=== PATIENT | female | born 1995 | race Caucasian/White ===

== ENCOUNTER 2024-03-11 18:18 | Emergency (ER) | payer OTHER, SELFPAY ==
[2024-03-11] MEDS ORDERED: ISOVUE-370 76% 100ML VIAL As Ordered ONE (18:45)
[2024-03-11 18:53] LABS: BASO % 0.3 % (0.0-1.0); EOS # 0.3 10^3/uL (0.0-0.5); EOS % 3.1 % (0.0-3.0); HEMATOCRIT 30.2 % (36.0-47.0); HEMOGLOBIN 8.7 g/dl (12.0-15.5); LYMPH # 1.3 10^3/uL (1.5-5.0); LYMPH % 14.1 % (24.0-44.0); MEAN CORPUSCULAR HEMOGLOBIN 22.7 pg (27.0-33.0); MEAN CORPUSCULAR HGB CONC 28.8 g/dl (32.0-36.5); MEAN CORPUSCULAR VOLUME 78.9 fl (80.0-96.0); MONO # 0.7 10^3/uL (0.0-0.8); MONO % 6.9 % (2.0-8.0); NEUTROPHILS # 7.2 10^3/uL (1.5-8.5); NEUTROPHILS % 75.3 % (36.0-66.0); PLATELET COUNT, AUTOMATED 320 10^3/uL (150-450); RED BLOOD COUNT 3.83 10^6/uL (4.00-5.40); WHITE BLOOD COUNT 9.5 10^3/uL (4.0-10.0)
[2024-03-11 19:06] LABS: INR 1.05; PARTIAL THROMBOPLASTIN TIME 31.1 SECONDS (24.8-34.2)
[2024-03-11 19:14] LABS: LIPASE 25 U/L (12-53)
[2024-03-11 19:15] LABS: ETHYL ALCOHOL (ETHANOL) < 0.003 % (0.000-0.010)
[2024-03-11 19:16] LABS: ALBUMIN 3.2 G/DL (3.2-5.2); ALKALINE PHOSPHATASE 79 U/L (35-104); ALT/SGPT 19 U/L (7.0-40); AST/SGOT 12 U/L (<34); BILIRUBIN,DIRECT 0.1 MG/DL (<0.4); BILIRUBIN,TOTAL 0.3 MG/DL (0.3-1.2); BLOOD UREA NITROGEN 10 MG/DL (9-23); CALCIUM LEVEL 8.8 MG/DL (8.5-10.1); CARBON DIOXIDE LEVEL 30 MMOL/L (20-31); CHLORIDE LEVEL 105 MMOL/L (98-107); GLOMERULAR FILTRATION RATE > 60.0 (>60); GLUCOSE, FASTING 101 MG/DL (60-100); POTASSIUM SERUM 4.2 MMOL/L (3.5-5.1); SODIUM LEVEL 142 MMOL/L (136-145); TOTAL PROTEIN 6.9 G/DL (5.7-8.2)
[2024-03-11 19:21] LABS: SALICYLATE LEVEL < 3.0 MG/DL (<30)
[2024-03-11 19:31] LABS: VENOUS BASE EXCESS 3.9 (-2.0-2.0); VENOUS HCO3 30.1 MMOL/L (23.0-27.0); VENOUS PARTIAL PRESSURE CO2 54.5 mmHg (38.0-50.0); VENOUS PARTIAL PRESSURE O2 33.8 mmHg (30.0-50.0); VENOUS STANDARD HCO3 27.3 MMOL/L; VENOUS TOTAL CO2 31.8 MMOL/L (24.0-28.0)
[2024-03-11 19:51] LABS: AMYLASE 51 U/L (30-118)
[2024-03-11 21:15] LABS: HCG, SERUM QUALITATIVE NEGATIVE (NEGATIVE)
[2024-03-11 21:55] LABS: AMPHETAMINES LEVEL URINE NEGATIVE (NEGATIVE); BARBITURATES URINE NEGATIVE (NEGATIVE); METHADONE URINE NEGATIVE (NEGATIVE); OPIATES URINE NEGATIVE (NEGATIVE); PHENCYCLIDINE URINE NEGATIVE (NEGATIVE)
[2024-03-11 21:56] LABS: BENZODIAZEPINES URINE NEGATIVE (NEGATIVE); COCAINE METABOLITE URINE NEGATIVE (NEGATIVE)
[2024-03-11 21:58] LABS: CANNABINOIDS URINE POSITIVE (NEGATIVE)
[2024-03-11 23:12] LABS: HEMATOCRIT 27.8 % (36.0-47.0); HEMOGLOBIN 8.1 g/dl (12.0-15.5)
[2024-03-11] MEDS ORDERED: ACETAMINOPHEN *IV* 1,000 MG in IV 1 EA IV ONE (23:55)
[2024-03-12] MEDS ORDERED: EMTRICITABINE/TENOFOVIR 200MG/300MG TABLET PO SCH
[2024-03-12] MEDS ORDERED: RALTEGRAVIR 400 MG TAB (ISENTRESS) PO SCH
[2024-03-12] MEDS: traMADol 50 MG TAB PO ONE (01:18)
[2024-03-12] MEDS ORDERED: metroNIDAZOLE (FLAGYL) 500MG TABLET PO ONE (02:50)
[2024-03-12] MEDS ORDERED: EXPOSURE KIT-ADULT 7 DAY SUPPLY PO ONE (02:50)
[2024-03-12] MEDS ORDERED: GENTAMICIN 120 MG in D5W 50 ML IM ONE (02:50)
[2024-03-12] MEDS ORDERED: RALT40TA PO (02:53)
[2024-03-12] MEDS ORDERED: EMTR1TAB16 PO (02:53)
[2024-03-12] MEDS ORDERED: METR-265 PO (02:53)
[2024-03-12] MEDS: AZITHROMYCIN 250MG TABLET PO ONE (03:11)
[2024-03-12] MEDS: EMTRICITABINE/TENOFOVIR 200MG/300MG TABLET PO ONE (04:05)
[2024-03-12] MEDS: RALTEGRAVIR 400 MG TAB (ISENTRESS) PO ONE (04:05)
[2024-03-12] MEDS: GENTAMICIN SULF 80MG/2ML VIAL IM STA (04:07)
[2024-03-12] MEDS: ONDANSETRON 4MG TAB PO ONE (05:29)
[2024-03-12] MEDS: FAMOTIDINE 20 MG TAB PO ONE (05:29)
[2024-03-12] MEDS: oxyCODONE 5MG TAB PO ONE (05:29)
[2024-03-12 08:14] VITALS: BP 136/68; TEMP 97; O2SAT 96
== END 2024-03-12 08:16 | disposition home or self-care (01) ==
LOC: M ED 18:18 → EDBD 18:18 → M ED 03-12 08:16
DX: I67.1 Cerebral aneurysm, nonruptured (principal); T74.21XA Adult sexual abuse, confirmed, initial encounter; N93.9 Abnormal uterine and vaginal bleeding, unspecified; E04.8 Other specified nontoxic goiter; R16.0 Hepatomegaly, not elsewhere classified; D64.9 Anemia, unspecified; F17.290 Nicotine dependence, other tobacco product, uncomplicated; D69.3 Immune thrombocytopenic purpura; C95.90 Leukemia, unspecified not having achieved remission; Z88.0 Allergy status to penicillin; Z88.6 Allergy status to analgesic agent; Z88.2 Allergy status to sulfonamides; Z91.040 Latex allergy status
CPT/HCPCS: 70450; 70498; 71045; 72125; 74177; 76830; 76856; 80047; 80048; 80076; 80143; 80307; 82077; 82150; 82803; 83605; 83690; 84703; 85014; 85018; 85025; 85610; 85730; 86850; 86900; 86901; 93005; 93041; 93976; 94760; 96372; 99285; J1580; Q9967

== ENCOUNTER 2024-03-12 19:53 | Emergency (ER) | payer OTHER, SELFPAY ==
[~2024-03-12] VITALS: Ht 175.3 cm; Wt 135.4 kg
[~2024-03-12 19:53] MED LIST: EMTR1TAB16 PO; METR-265 PO; RALT40TA PO
[2024-03-12 21:02] LABS: BASO % 0.2 % (0.0-1.0); EOS # 0.3 10^3/uL (0.0-0.5); EOS % 3.5 % (0.0-3.0); HEMATOCRIT 27.9 % (36.0-47.0); LYMPH % 11.1 % (24.0-44.0); MEAN CORPUSCULAR HEMOGLOBIN 22.9 pg (27.0-33.0); MEAN CORPUSCULAR HGB CONC 28.7 g/dl (32.0-36.5); MEAN CORPUSCULAR VOLUME 79.9 fl (80.0-96.0); MONO # 0.5 10^3/uL (0.0-0.8); MONO % 5.5 % (2.0-8.0); NEUTROPHILS # 7.1 10^3/uL (1.5-8.5); NEUTROPHILS % 79.4 % (36.0-66.0); PLATELET COUNT, AUTOMATED 298 10^3/uL (150-450); RED BLOOD COUNT 3.49 10^6/uL (4.00-5.40); WHITE BLOOD COUNT 8.9 10^3/uL (4.0-10.0)
[2024-03-12 21:25] LABS: BLOOD UREA NITROGEN 9 MG/DL (9-23); CALCIUM LEVEL 8.5 MG/DL (8.5-10.1); CARBON DIOXIDE LEVEL 31 MMOL/L (20-31); CHLORIDE LEVEL 106 MMOL/L (98-107); CREATININE FOR GFR 0.68 MG/DL (0.55-1.30); GLOMERULAR FILTRATION RATE > 60.0 (>60); GLUCOSE, FASTING 114 MG/DL (60-100); POTASSIUM SERUM 3.9 MMOL/L (3.5-5.1); SODIUM LEVEL 144 MMOL/L (136-145)
[2024-03-12] MEDS: METOCLOPRAMIDE INJ 10MG/2ML VIAL IV ONE (21:28)
[2024-03-12] MEDS: NS (Normal Saline) 0.9% 1,000 ML IV ONE (21:29)
[2024-03-12] MEDS ORDERED: ISOVUE-370 76% 100ML VIAL As Ordered ONE (21:59)
[2024-03-12 22:02] LABS: C REACTIVE PROTEIN QUANTITATIV 4.26 MG/DL (<1.0)
[2024-03-12 22:02] LABS: ABG BASE EXCESS 3.1 (-2.0-2.0); ABG HCO3 28.8 MMOL/L (22.0-26.0); ABG O2 SATURATION 99.3 % (95.0-99.0); ABG PARTIAL PRESSURE CO2 50.8 mmHg (35.0-45.0); ABG PARTIAL PRESSURE O2 173.3 mmHg (75.0-100.0); ABG STANDARD HCO3 27.2 MMOL/L. (22.0-26.0); ABG TOTAL CO2 30.4 MMOL/L (22.0-29.0); ABG pH (ARTERIAL) 7.372 UNITS (7.350-7.450)
[2024-03-12 22:14] LABS: PROCALCITONIN 0.16 ng/ml
[2024-03-12 23:36] LABS: AMPHETAMINES LEVEL URINE NEGATIVE (NEGATIVE); BARBITURATES URINE NEGATIVE (NEGATIVE); BENZODIAZEPINES URINE NEGATIVE (NEGATIVE); COCAINE METABOLITE URINE NEGATIVE (NEGATIVE)
[2024-03-12 23:37] LABS: CANNABINOIDS URINE POSITIVE (NEGATIVE); METHADONE URINE NEGATIVE (NEGATIVE); OPIATES URINE NEGATIVE (NEGATIVE); PHENCYCLIDINE URINE NEGATIVE (NEGATIVE)
[2024-03-12 23:43] LABS: FREE T4 0.42 NG/DL (0.89-1.76)
[2024-03-13 00:11] LABS: THYROID STIMULATING HORMONE > 150.000 uIU/ML (0.55-4.78)
[2024-03-13 00:42] VITALS: BP 113/61; TEMP 97.3; O2SAT 100
== END 2024-03-13 00:42 | disposition home or self-care (01) ==
LOC: M ED 19:53
DX: R55 Syncope and collapse (principal); R94.6 Abnormal results of thyroid function studies; Z53.9 Procedure and treatment not carried out, unspecified reason; E11.9 Type 2 diabetes mellitus without complications; G47.33 Obstructive sleep apnea (adult) (pediatric); Z88.0 Allergy status to penicillin; Z88.2 Allergy status to sulfonamides; Z88.6 Allergy status to analgesic agent; Z91.040 Latex allergy status
CPT/HCPCS: 36600; 70450; 71045; 71275; 80048; 80307; 81000; 81015; 82803; 83605; 83735; 84145; 84439; 84443; 85025; 85379; 85652; 86140; 87040; 87088; 87186; 87486; 87581; 87633; 87798; 93005; 93041; 94760; 96361; 96374; 96375; 99285; J1100; J2765; Q9967

== ENCOUNTER 2024-03-27 23:45 | Inpatient (IN) | payer SELFPAY ==
[~2024-03-27] VITALS: Ht 175.3 cm; Wt 117.7 kg
[2024-03-28 00:11] VITALS: TEMP 98.2
[2024-03-28 00:15] VITALS: O2SAT 93
[2024-03-28 00:17] LABS: VENOUS HCO3 29.4 MMOL/L (23.0-27.0); VENOUS O2 SATURATION 70.6 % (60.0-80.0); VENOUS PARTIAL PRESSURE CO2 55.7 mmHg (38.0-50.0); VENOUS PARTIAL PRESSURE O2 40.3 mmHg (30.0-50.0); VENOUS PH 7.341 UNITS (7.330-7.430); VENOUS STANDARD HCO3 26.7 MMOL/L; VENOUS TOTAL CO2 31.2 MMOL/L (24.0-28.0)
[2024-03-28 00:19] LABS: IONIZED CALCIUM 4.6 MG/DL (4.5-5.3)
[2024-03-28 00:21] LABS: BASO % 0.2 % (0.0-1.0); EOS # 0.3 10^3/uL (0.0-0.5); HEMATOCRIT 28.4 % (36.0-47.0); HEMOGLOBIN 8.1 g/dl (12.0-15.5); LYMPH # 1.4 10^3/uL (1.5-5.0); LYMPH % 15.6 % (24.0-44.0); MEAN CORPUSCULAR HEMOGLOBIN 22.2 pg (27.0-33.0); MEAN CORPUSCULAR HGB CONC 28.5 g/dl (32.0-36.5); MEAN CORPUSCULAR VOLUME 77.8 fl (80.0-96.0); MONO # 0.6 10^3/uL (0.0-0.8); MONO % 6.7 % (2.0-8.0); NEUTROPHILS # 6.8 10^3/uL (1.5-8.5); NEUTROPHILS % 74.1 % (36.0-66.0); PLATELET COUNT, AUTOMATED 307 10^3/uL (150-450); RED BLOOD COUNT 3.65 10^6/uL (4.00-5.40); WHITE BLOOD COUNT 9.1 10^3/uL (4.0-10.0)
[2024-03-28 00:52] LABS: ALBUMIN 3.1 G/DL (3.2-5.2); ALKALINE PHOSPHATASE 76 U/L (35-104); ALT/SGPT 19 U/L (7.0-40); AST/SGOT 13 U/L (<34); BILIRUBIN,DIRECT 0.1 MG/DL (<0.4); BILIRUBIN,TOTAL 0.3 MG/DL (0.3-1.2); BLOOD UREA NITROGEN 13 MG/DL (9-23); CALCIUM LEVEL 9.1 MG/DL (8.5-10.1); CARBON DIOXIDE LEVEL 31 MMOL/L (20-31); CHLORIDE LEVEL 105 MMOL/L (98-107); CREATININE FOR GFR 0.79 MG/DL (0.55-1.30); GLOMERULAR FILTRATION RATE > 60.0 (>60); GLUCOSE, FASTING 110 MG/DL (60-100); MAGNESIUM LEVEL 1.8 MG/DL (1.8-2.4); POTASSIUM SERUM 4.2 MMOL/L (3.5-5.1); SODIUM LEVEL 142 MMOL/L (136-145)
[2024-03-28 01:00] LABS: FREE T4 0.52 NG/DL (0.89-1.76)
[2024-03-28 01:07] LABS: ETHYL ALCOHOL (ETHANOL) < 0.003 % (0.000-0.010)
[2024-03-28 01:09] LABS: THYROID STIMULATING HORMONE > 150.000 uIU/ML (0.55-4.78)
[2024-03-28] MEDS: NS (Normal Saline) 0.9% 1,000 ML IV ONE (01:29)
[2024-03-28] MEDS: METOCLOPRAMIDE INJ 10MG/2ML VIAL IV ONE (01:30)
[2024-03-28] MEDS: KETOROLAC 30 MG/ML 1ML VIAL IV ONE (01:31)
[2024-03-28] MEDS: HYDROCORTISONE 100MG/2ML VIAL IV ONE (03:11)
[2024-03-28] MEDS: LIOTHYRONINE 25 MCG TAB PO ONE (03:22)
[2024-03-28] MEDS: LEVOTHYROXINE 100MCG (0.1MG) 5ML SDV PF (SOLUTION FORM) IV ONE (03:22)
[2024-03-28 03:49] LABS: AMPHETAMINES LEVEL URINE NEGATIVE (NEGATIVE); BARBITURATES URINE NEGATIVE (NEGATIVE); BENZODIAZEPINES URINE NEGATIVE (NEGATIVE); COCAINE METABOLITE URINE NEGATIVE (NEGATIVE); METHADONE URINE NEGATIVE (NEGATIVE); OPIATES URINE NEGATIVE (NEGATIVE); PHENCYCLIDINE URINE NEGATIVE (NEGATIVE)
[2024-03-28 03:53] LABS: CANNABINOIDS URINE POSITIVE (NEGATIVE)
[2024-03-28] MEDS ORDERED: LORazepam 2 MG/ML 1ML VIAL IV PRN (06:25)
[2024-03-28 06:45] VITALS: BP 103/54
[2024-03-28] MEDS: levETIRAcetam INJection 1,500 MG in D5W 100 ML IV ONE (07:40)
[2024-03-28] MEDS ORDERED: IPRATROPIUM 0.5MG/ALBUTEROL 2.5MG INH SOL UD 3ML (DUONEB) NEB SCH (08:00)
[2024-03-28] MEDS ORDERED: DOCUSATE SODIUM 100MG CAPSULE PO SCH (09:00)
[2024-03-28] MEDS ORDERED: HYDROCORTISONE 100MG/2ML VIAL IV SCH (11:00)
[2024-03-28] MEDS ORDERED: HEPARIN SOD (PORCINE) 5000UNITS/ML 1ML VIAL/SYRINGE SC SCH (14:00)
[2024-03-28] MEDS ORDERED: levETIRAcetam 250MG TABLET (KEPPRA) PO SCH (21:00)
[2024-03-29] MEDS ORDERED: LEVOTHYROXINE 100MCG (0.1MG) 5ML SDV PF (SOLUTION FORM) IV SCH (06:00)
[2024-03-29] MEDS ORDERED: LIOTHYRONINE 25 MCG TAB PO SCH (09:00)
== END 2024-03-28 07:40 | disposition left against medical advice (07) | DRG 424 ==
LOC: EDBD 23:45 → M ED 23:45 → M ED INP 03-28 03:43
PROVIDERS: ADMIT Student in an Organized Health Care Education/Training Program; ATTEND Student in an Organized Health Care Education/Training Program
DX: E03.9 Hypothyroidism, unspecified (principal); G93.40 Encephalopathy, unspecified; R56.9 Unspecified convulsions; E66.2 Morbid (severe) obesity with alveolar hypoventilation; D50.9 Iron deficiency anemia, unspecified; Z79.899 Other long term (current) drug therapy; Z88.0 Allergy status to penicillin; Z88.2 Allergy status to sulfonamides; Z88.6 Allergy status to analgesic agent; Z88.8 Allergy status to other drugs, medicaments and biological substances; Z91.040 Latex allergy status

== ENCOUNTER 2024-03-29 23:42 | Inpatient (IN) | payer SELFPAY ==
[~2024-03-29] VITALS: Ht 175.3 cm; Wt 136.0 kg
[2024-03-29 23:54] VITALS: TEMP 98.1
[2024-03-30 00:19] LABS: VENOUS BASE EXCESS 0.6 (-2.0-2.0); VENOUS HCO3 27.3 MMOL/L (23.0-27.0); VENOUS O2 SATURATION 64.5 % (60.0-80.0); VENOUS PARTIAL PRESSURE CO2 55.7 mmHg (38.0-50.0); VENOUS PARTIAL PRESSURE O2 37.6 mmHg (30.0-50.0); VENOUS PH 7.308 UNITS (7.330-7.430); VENOUS STANDARD HCO3 24.5 MMOL/L
[2024-03-30 00:21] LABS: IONIZED CALCIUM 4.6 MG/DL (4.5-5.3)
[2024-03-30 00:23] LABS: BASO % 0.3 % (0.0-1.0); EOS # 0.3 10^3/uL (0.0-0.5); EOS % 3.2 % (0.0-3.0); HEMATOCRIT 26.9 % (36.0-47.0); HEMOGLOBIN 7.5 g/dl (12.0-15.5); LYMPH % 20.4 % (24.0-44.0); MEAN CORPUSCULAR HEMOGLOBIN 22.2 pg (27.0-33.0); MEAN CORPUSCULAR HGB CONC 27.9 g/dl (32.0-36.5); MEAN CORPUSCULAR VOLUME 79.6 fl (80.0-96.0); MONO # 0.6 10^3/uL (0.0-0.8); MONO % 6.3 % (2.0-8.0); NEUTROPHILS # 6.6 10^3/uL (1.5-8.5); NEUTROPHILS % 69.5 % (36.0-66.0); PLATELET COUNT, AUTOMATED 287 10^3/uL (150-450); RED BLOOD COUNT 3.38 10^6/uL (4.00-5.40); WHITE BLOOD COUNT 9.6 10^3/uL (4.0-10.0)
[2024-03-30] MEDS: levETIRAcetam INJection 2,000 MG in D5W 100 ML IV ONE (00:34)
[2024-03-30 00:47] LABS: ETHYL ALCOHOL (ETHANOL) 0.009 % (0.000-0.010)
[2024-03-30 00:51] LABS: FREE T4 0.53 NG/DL (0.89-1.76); THYROID STIMULATING HORMONE 124.105 uIU/ML (0.55-4.78)
[2024-03-30 00:54] LABS: ALKALINE PHOSPHATASE 76 U/L (35-104); ALT/SGPT 25 U/L (7.0-40); AST/SGOT 12 U/L (<34); BILIRUBIN,DIRECT < 0.1 MG/DL (<0.4); BILIRUBIN,TOTAL 0.2 MG/DL (0.3-1.2); BLOOD UREA NITROGEN 12 MG/DL (9-23); CALCIUM LEVEL 8.6 MG/DL (8.5-10.1); CARBON DIOXIDE LEVEL 29 MMOL/L (20-31); CHLORIDE LEVEL 110 MMOL/L (98-107); CREATININE FOR GFR 0.78 MG/DL (0.55-1.30); GLOMERULAR FILTRATION RATE > 60.0 (>60); GLUCOSE, FASTING 100 MG/DL (60-100); MAGNESIUM LEVEL 1.6 MG/DL (1.8-2.4); PHOSPHORUS LEVEL 3.5 MG/DL (2.5-4.9); POTASSIUM SERUM 3.9 MMOL/L (3.5-5.1); SODIUM LEVEL 142 MMOL/L (136-145); TOTAL PROTEIN 6.3 G/DL (5.7-8.2)
[2024-03-30 01:19] LABS: AMPHETAMINES LEVEL URINE NEGATIVE (NEGATIVE); BARBITURATES URINE NEGATIVE (NEGATIVE); BENZODIAZEPINES URINE NEGATIVE (NEGATIVE); COCAINE METABOLITE URINE NEGATIVE (NEGATIVE); METHADONE URINE NEGATIVE (NEGATIVE); OPIATES URINE NEGATIVE (NEGATIVE); PHENCYCLIDINE URINE NEGATIVE (NEGATIVE)
[2024-03-30 01:20] LABS: CANNABINOIDS URINE POSITIVE (NEGATIVE)
[2024-03-30] MEDS ORDERED: ACETAMINOPHEN 325 MG TAB PO PRN (02:55)
[2024-03-30] MEDS ORDERED: MOM 30ML SUSPENSION UDC PO PRN (02:55)
[2024-03-30] MEDS ORDERED: MAALOX 30 ML SUSP *UDC PO PRN (02:55)
[2024-03-30] MEDS ORDERED: MED REC IN PROGRESS XX SCH (03:55)
[2024-03-30 05:34] VITALS: BP 117/63; O2SAT 92
[2024-03-30] MEDS: LEVOTHYROXINE 100MCG (0.1MG) 5ML SDV PF (SOLUTION FORM) IV SCH (06:11)
[2024-03-30 09:00] LABS: HEMATOCRIT 30.8 % (36.0-47.0); HEMOGLOBIN 8.4 g/dl (12.0-15.5); MEAN CORPUSCULAR HEMOGLOBIN 21.6 pg (27.0-33.0); MEAN CORPUSCULAR HGB CONC 27.3 g/dl (32.0-36.5); MEAN CORPUSCULAR VOLUME 79.2 fl (80.0-96.0); PLATELET COUNT, AUTOMATED 298 10^3/uL (150-450); RED BLOOD COUNT 3.89 10^6/uL (4.00-5.40); WHITE BLOOD COUNT 10.9 10^3/uL (4.0-10.0)
[2024-03-30] MEDS ORDERED: HYDROCORTISONE 100MG/2ML VIAL IV SCH (09:00)
[2024-03-30] MEDS ORDERED: LIOTHYRONINE 25 MCG TAB PO SCH (09:00)
[2024-03-30] MEDS ORDERED: PANTOPRAZOLE 40MG VIAL IV SCH (09:00)
[2024-03-30] MEDS ORDERED: levETIRAcetam 250MG TABLET (KEPPRA) PO SCH (09:00)
[2024-03-30] MEDS ORDERED: DOCUSATE SODIUM 100MG CAPSULE PO SCH (09:00)
[2024-03-30 09:25] LABS: ALBUMIN 3.1 G/DL (3.2-5.2); ALKALINE PHOSPHATASE 83 U/L (35-104); ALT/SGPT 24 U/L (7.0-40); AST/SGOT 12 U/L (<34); BILIRUBIN,TOTAL 0.3 MG/DL (0.3-1.2); BLOOD UREA NITROGEN 10 MG/DL (9-23); CALCIUM LEVEL 8.6 MG/DL (8.5-10.1); CARBON DIOXIDE LEVEL 30 MMOL/L (20-31); CHLORIDE LEVEL 105 MMOL/L (98-107); CREATININE FOR GFR 0.67 MG/DL (0.55-1.30); GLOMERULAR FILTRATION RATE > 60.0 (>60); GLUCOSE, FASTING 98 MG/DL (60-100); MAGNESIUM LEVEL 1.8 MG/DL (1.8-2.4); POTASSIUM SERUM 4.3 MMOL/L (3.5-5.1); SODIUM LEVEL 141 MMOL/L (136-145)
[2024-03-30] MEDS ORDERED: CYTO25TA6 PO (10:16)
[2024-03-30] MEDS ORDERED: KEPP1TAB PO (10:16)
[2024-03-30] MEDS ORDERED: SYNT100T PO (10:16)
[2024-03-30] MEDS ORDERED: HEPARIN SOD (PORCINE) 5000UNITS/ML 1ML VIAL/SYRINGE SC SCH (14:00)
== END 2024-03-30 09:45 | disposition home or self-care (01) | DRG 53 ==
LOC: EDBD 23:42 → M ED 23:42 → M ED INP 03-30 02:51
PROVIDERS: ADMIT Student in an Organized Health Care Education/Training Program; ATTEND Student in an Organized Health Care Education/Training Program
DX: R56.9 Unspecified convulsions (principal); E66.2 Morbid (severe) obesity with alveolar hypoventilation; I72.0 Aneurysm of carotid artery; Z68.41 Body mass index [BMI] 40.0-44.9, adult; E03.9 Hypothyroidism, unspecified; D50.9 Iron deficiency anemia, unspecified; Z79.899 Other long term (current) drug therapy; Z88.0 Allergy status to penicillin; Z88.2 Allergy status to sulfonamides; Z88.6 Allergy status to analgesic agent; Z88.8 Allergy status to other drugs, medicaments and biological substances; Z91.040 Latex allergy status

== ENCOUNTER 2024-03-31 19:52 | Observation (INO) | payer MEDICAID, SELFPAY ==
[~2024-03-31] VITALS: Ht 175.3 cm; Wt 186.3 kg
[~2024-03-31 19:52] MED LIST changes: +CYTO25TA6 PO; +KEPP1TAB PO; +SYNT100T PO
[2024-03-31] MEDS: levETIRAcetam INJection 1,000 MG in D5W 100 ML IV ONE (20:52)
[2024-03-31 21:26] LABS: HEMATOCRIT 28.4 % (36.0-47.0); HEMOGLOBIN 8.1 g/dl (12.0-15.5); MEAN CORPUSCULAR HGB CONC 28.5 g/dl (32.0-36.5); MEAN CORPUSCULAR VOLUME 77.2 fl (80.0-96.0); PLATELET COUNT, AUTOMATED 295 10^3/uL (150-450); RED BLOOD COUNT 3.68 10^6/uL (4.00-5.40); WHITE BLOOD COUNT 9.5 10^3/uL (4.0-10.0)
[2024-03-31 21:49] LABS: ETHYL ALCOHOL (ETHANOL) < 0.003 % (0.000-0.010)
[2024-03-31 21:51] LABS: ALKALINE PHOSPHATASE 81 U/L (35-104); ALT/SGPT 18 U/L (7.0-40); AST/SGOT 15 U/L (<34); BILIRUBIN,TOTAL 0.2 MG/DL (0.3-1.2); BLOOD UREA NITROGEN 15 MG/DL (9-23); CARBON DIOXIDE LEVEL 30 MMOL/L (20-31); CHLORIDE LEVEL 105 MMOL/L (98-107); CREATININE FOR GFR 0.68 MG/DL (0.55-1.30); GLOMERULAR FILTRATION RATE > 60.0 (>60); GLUCOSE, FASTING 107 MG/DL (60-100); MAGNESIUM LEVEL 1.8 MG/DL (1.8-2.4); POTASSIUM SERUM 4.3 MMOL/L (3.5-5.1); SODIUM LEVEL 141 MMOL/L (136-145); TOTAL PROTEIN 6.9 G/DL (5.7-8.2)
[2024-03-31 21:53] LABS: FREE T4 0.58 NG/DL (0.89-1.76)
[2024-03-31 21:54] LABS: THYROID STIMULATING HORMONE 128.011 uIU/ML (0.55-4.78)
[2024-04-01 01:56] LABS: HCG, SERUM QUANTITATIVE < 2.6 MIU/ML (<4.2)
[2024-04-01] MEDS: LEVOTHYROXINE 100MCG TABLET (0.1MG) PO SCH (06:11)
[2024-04-01 08:56] LABS: VENOUS O2 SATURATION 59.7 % (60.0-80.0); VENOUS PARTIAL PRESSURE CO2 59.8 mmHg (38.0-50.0); VENOUS PARTIAL PRESSURE O2 34.7 mmHg (30.0-50.0); VENOUS PH 7.319 UNITS (7.330-7.430); VENOUS STANDARD HCO3 26.5 MMOL/L; VENOUS TOTAL CO2 31.9 MMOL/L (24.0-28.0)
[2024-04-01] MEDS: levETIRAcetam 250MG TABLET (KEPPRA) PO SCH (09:05)
[2024-04-01] MEDS: LIOTHYRONINE 25 MCG TAB PO SCH (09:05)
[2024-04-01 11:03] LABS: MEAN CORPUSCULAR HEMOGLOBIN 21.6 pg (27.0-33.0); MEAN CORPUSCULAR HGB CONC 27.6 g/dl (32.0-36.5); MEAN CORPUSCULAR VOLUME 78.4 fl (80.0-96.0); PLATELET COUNT, AUTOMATED 290 10^3/uL (150-450); WHITE BLOOD COUNT 9.2 10^3/uL (4.0-10.0)
[2024-04-01 11:27] LABS: BLOOD UREA NITROGEN 14 MG/DL (9-23); CALCIUM LEVEL 9.1 MG/DL (8.5-10.1); CARBON DIOXIDE LEVEL 32 MMOL/L (20-31); CHLORIDE LEVEL 104 MMOL/L (98-107); CREATININE FOR GFR 0.68 MG/DL (0.55-1.30); GLOMERULAR FILTRATION RATE > 60.0 (>60); GLUCOSE, FASTING 107 MG/DL (60-100); IRON (FE) 12 UG/DL (50-170); PERCENT SATURATION 4.1 % (13.2-45.0); POTASSIUM SERUM 4.3 MMOL/L (3.5-5.1); SODIUM LEVEL 139 MMOL/L (136-145); TOTAL IRON BINDING CAPACITY 292 UG/DL (250-425)
[2024-04-01 11:29] LABS: FREE T4 0.65 NG/DL (0.89-1.76)
[2024-04-01 11:30] LABS: FREE T3 2.6 PG/ML (2.3-4.2); PROLACTIN 45.03 NG/ML
[2024-04-01] MEDS ORDERED: ACETAMINOPHEN 325 MG TAB PO PRN (12:10)
[2024-04-01] MEDS ORDERED: LORazepam 2 MG/ML 1ML VIAL IV PRN (12:10)
[2024-04-01] MEDS ORDERED: ONDANSETRON 4MG 2ML VIAL IV PRN (12:10)
[2024-04-01 12:58] LABS: CHOLESTEROL LEVEL 157 MG/DL (<200); CHOLESTEROL RISK RATIO 4.18 (<5); HDL CHOLESTEROL 37.5 MG/DL (>40); LDL CHOLESTEROL 105.3 MG/DL (<100); NON-HDL-C 119.5 MG/DL; TRIGLYCERIDES LEVEL 71 MG/DL (<150)
[2024-04-01] MEDS ORDERED: KEPP10002 PO (13:02)
[2024-04-01] MEDS ORDERED: SYNT100T PO (13:02)
[2024-04-01] MEDS ORDERED: HOME MED LIST COMPLETE! XX SCH (13:05)
[2024-04-01 13:11] LABS: HEMOGLOBIN A1c 5.6 % (4.0-6.0)
[2024-04-01] MEDS ORDERED: KETOROLAC 30 MG/ML 1ML VIAL IV ONE (13:25)
[2024-04-01] MEDS: KETOROLAC 30 MG/ML 1ML VIAL IV ONE (13:30)
[2024-04-01] MEDS: HEPARIN SOD (PORCINE) 5000UNITS/ML 1ML VIAL/SYRINGE SQ SCH (14:58)
[2024-04-01] MEDS ORDERED: IBUPROFEN 400MG TAB PO PRN (19:30)
[2024-04-02 05:19] VITALS: BP 111/59; TEMP 97.6; O2SAT 98
[2024-04-02] MEDS ORDERED: ENTER DRUG NAME HERE (PATIENT'S OWN MED) PO SCH ×2 (09:00)
[2024-04-02 10:09] LABS: BASO % 0.2 % (0.0-1.0); EOS # 0.3 10^3/uL (0.0-0.5); HEMOGLOBIN 8.6 g/dl (12.0-15.5); LYMPH # 1.1 10^3/uL (1.5-5.0); LYMPH % 12.4 % (24.0-44.0); MEAN CORPUSCULAR HEMOGLOBIN 21.8 pg (27.0-33.0); MEAN CORPUSCULAR HGB CONC 27.7 g/dl (32.0-36.5); MEAN CORPUSCULAR VOLUME 78.5 fl (80.0-96.0); MONO # 0.6 10^3/uL (0.0-0.8); MONO % 6.4 % (2.0-8.0); NEUTROPHILS # 6.8 10^3/uL (1.5-8.5); NEUTROPHILS % 77.8 % (36.0-66.0); PLATELET COUNT, AUTOMATED 305 10^3/uL (150-450); RED BLOOD COUNT 3.95 10^6/uL (4.00-5.40); WHITE BLOOD COUNT 8.8 10^3/uL (4.0-10.0)
[2024-04-02 10:35] LABS: ALBUMIN 3.2 G/DL (3.2-5.2); ALKALINE PHOSPHATASE 80 U/L (35-104); ALT/SGPT 17 U/L (7.0-40); AST/SGOT 9 U/L (<34); BILIRUBIN,TOTAL 0.3 MG/DL (0.3-1.2); BLOOD UREA NITROGEN 15 MG/DL (9-23); CALCIUM LEVEL 8.4 MG/DL (8.5-10.1); CARBON DIOXIDE LEVEL 30 MMOL/L (20-31); CHLORIDE LEVEL 104 MMOL/L (98-107); CREATININE FOR GFR 0.74 MG/DL (0.55-1.30); GLOMERULAR FILTRATION RATE > 60.0 (>60); GLUCOSE, FASTING 111 MG/DL (60-100); IRON (FE) 15 UG/DL (50-170); PERCENT SATURATION 4.9 % (13.2-45.0); POTASSIUM SERUM 4.4 MMOL/L (3.5-5.1); SODIUM LEVEL 142 MMOL/L (136-145); TOTAL IRON BINDING CAPACITY 307 UG/DL (250-425); TOTAL PROTEIN 6.8 G/DL (5.7-8.2)
[2024-04-02 10:39] LABS: THYROXINE (T4) 3.7 UG/DL (4.5-10.9)
[2024-04-02 10:40] LABS: FERRITIN 9.8 NG/ML (7.3-270.7)
[2024-04-02 10:42] LABS: FREE THYROXINE INDEX 1.1 % (1.3-4.8)
[2024-04-05 01:38] LABS: LEVETIRACETAM (KEPPRA) 13.5 mcg/mL (6.0-46.0)
== END 2024-04-02 14:00 | disposition left against medical advice (07) ==
LOC: EDBD 19:52 → EDUNIT# 19:52 → M ED 20:46 → M ED INP 04-01 09:50
PROVIDERS: ADMIT General Practice; ATTEND General Practice
DX: R56.9 Unspecified convulsions (principal); E06.3 Autoimmune thyroiditis; D50.9 Iron deficiency anemia, unspecified; E66.01 Morbid (severe) obesity due to excess calories; G47.30 Sleep apnea, unspecified; Z68.44 Body mass index [BMI] 60.0-69.9, adult; Z79.890 Hormone replacement therapy; Z79.899 Other long term (current) drug therapy; Z88.0 Allergy status to penicillin; Z88.2 Allergy status to sulfonamides; Z88.6 Allergy status to analgesic agent; Z88.8 Allergy status to other drugs, medicaments and biological substances; Z91.040 Latex allergy status
CPT/HCPCS: 36415; 70450; 80048; 80053; 80061; 80177; 82077; 82728; 82803; 83036; 83550; 83605; 83735; 84146; 84238; 84436; 84439; 84443; 84479; 84481; 84702; 85025; 85027; 85046; 96372; 96374; 96375; 97161; 99285; J1885; J1953

== ENCOUNTER 2024-04-04 10:41 | Emergency (ER) | payer SELFPAY ==
[~2024-04-04] VITALS: Ht 175.3 cm; Wt 181.4 kg
[~2024-04-04 10:41] MED LIST changes: +KEPP10002 PO
[2024-04-04 13:55] VITALS: BP 123/69; TEMP 97.1; O2SAT 96
== END 2024-04-04 14:00 | disposition home or self-care (01) ==
LOC: EDUNIT# 10:41 → EDBD 10:41 → M ED 10:41
DX: R56.9 Unspecified convulsions (principal); G47.33 Obstructive sleep apnea (adult) (pediatric); E03.9 Hypothyroidism, unspecified; F12.10 Cannabis abuse, uncomplicated; Z88.0 Allergy status to penicillin; Z88.2 Allergy status to sulfonamides; Z88.8 Allergy status to other drugs, medicaments and biological substances; Z91.040 Latex allergy status; Z79.899 Other long term (current) drug therapy

== ENCOUNTER 2024-04-28 22:02 | Emergency (ER) | payer MEDICAID, SELFPAY ==
[~2024-04-28] VITALS: Ht 175.3 cm; Wt 72.3 kg
[2024-04-28 22:15] VITALS: BP 127/66; TEMP 98.7; O2SAT 98
[2024-04-28] MEDS: diphenhydrAMINE 50MG/ML VIAL IV ONE (22:20)
[2024-04-28] MEDS: NS (Normal Saline) 0.9% 1,000 ML IV ONE (22:20)
[2024-04-28 22:56] LABS: BASO % 0.5 % (0.0-1.0); EOS # 0.2 10^3/uL (0.0-0.5); EOS % 2.4 % (0.0-3.0); HEMATOCRIT 26.2 % (36.0-47.0); HEMOGLOBIN 7.3 g/dl (12.0-15.5); LYMPH # 1.4 10^3/uL (1.5-5.0); LYMPH % 16.6 % (24.0-44.0); MEAN CORPUSCULAR HGB CONC 27.9 g/dl (32.0-36.5); MEAN CORPUSCULAR VOLUME 75.3 fl (80.0-96.0); MONO # 0.6 10^3/uL (0.0-0.8); MONO % 7.3 % (2.0-8.0); NEUTROPHILS # 6.1 10^3/uL (1.5-8.5); PLATELET COUNT, AUTOMATED 287 10^3/uL (150-450); RED BLOOD COUNT 3.48 10^6/uL (4.00-5.40); WHITE BLOOD COUNT 8.4 10^3/uL (4.0-10.0)
[2024-04-28] MEDS: METOCLOPRAMIDE INJ 10MG/2ML VIAL IV ONE (23:03)
[2024-04-28] MEDS: KETOROLAC 30 MG/ML 1ML VIAL IV ONE (23:04)
[2024-04-28 23:33] LABS: ALBUMIN 3.2 G/DL (3.2-5.2); ALKALINE PHOSPHATASE 68 U/L (35-104); ALT/SGPT 18 U/L (7.0-40); AST/SGOT 10 U/L (<34); BILIRUBIN,DIRECT 0.1 MG/DL (<0.4); BILIRUBIN,TOTAL 0.4 MG/DL (0.3-1.2); BLOOD UREA NITROGEN 12 MG/DL (9-23); CALCIUM LEVEL 8.4 MG/DL (8.5-10.1); CARBON DIOXIDE LEVEL 29 MMOL/L (20-31); CHLORIDE LEVEL 106 MMOL/L (98-107); CREATININE FOR GFR 0.69 MG/DL (0.55-1.30); GLOMERULAR FILTRATION RATE > 60.0 (>60); GLUCOSE, FASTING 102 MG/DL (60-100); SODIUM LEVEL 141 MMOL/L (136-145); TOTAL PROTEIN 6.7 G/DL (5.7-8.2)
[2024-04-29] MEDS ORDERED: PREV1CAP PO (22:47)
[2024-05-13] MEDS ORDERED: LEVO1TAB38 PO (08:42)
== END 2024-04-28 23:53 | disposition home or self-care (01) ==
LOC: EDBD 22:02 → EDSEX 22:02 → M ED 22:02
DX: R51.9 Headache, unspecified (principal); D64.9 Anemia, unspecified; E07.9 Disorder of thyroid, unspecified; F44.5 Conversion disorder with seizures or convulsions; Z79.899 Other long term (current) drug therapy; Z88.0 Allergy status to penicillin; Z88.2 Allergy status to sulfonamides; Z88.6 Allergy status to analgesic agent; Z91.040 Latex allergy status
CPT/HCPCS: 70450; 80048; 80076; 82140; 85025; 93041; 94760; 96374; 96375; 99284; J1885; J2765

== ENCOUNTER 2024-04-29 20:10 | Emergency (ER) | payer MEDICAID, SELFPAY ==
[~2024-04-29] VITALS: Ht 175.3 cm; Wt 181.8 kg
[2024-04-29] MEDS: ONDANSETRON 4MG ORAL DISINTEGRATING TAB PO ONE (20:50)
[2024-04-29 20:52] LABS: HEMATOCRIT 27.7 % (36.0-47.0); HEMOGLOBIN 7.6 g/dl (12.0-15.5); MEAN CORPUSCULAR HEMOGLOBIN 20.8 pg (27.0-33.0); MEAN CORPUSCULAR HGB CONC 27.4 g/dl (32.0-36.5); MEAN CORPUSCULAR VOLUME 75.9 fl (80.0-96.0); PLATELET COUNT, AUTOMATED 307 10^3/uL (150-450); RED BLOOD COUNT 3.65 10^6/uL (4.00-5.40); WHITE BLOOD COUNT 8.1 10^3/uL (4.0-10.0)
[2024-04-29 21:53] LABS: HCG, SERUM QUALITATIVE NEGATIVE (NEGATIVE)
[2024-04-29 21:54] LABS: BLOOD UREA NITROGEN 13 MG/DL (9-23); CALCIUM LEVEL 8.7 MG/DL (8.5-10.1); CARBON DIOXIDE LEVEL 32 MMOL/L (20-31); CHLORIDE LEVEL 107 MMOL/L (98-107); GLOMERULAR FILTRATION RATE > 60.0 (>60); GLUCOSE, FASTING 103 MG/DL (60-100); POTASSIUM SERUM 4.1 MMOL/L (3.5-5.1); SODIUM LEVEL 145 MMOL/L (136-145)
[2024-04-29 22:45] VITALS: BP 110/64; TEMP 98.8; O2SAT 96
[2024-04-29] MEDS ORDERED: PREV1CAP PO (22:47)
[2024-05-13] MEDS ORDERED: LEVO1TAB38 PO (08:42)
== END 2024-04-29 22:50 | disposition home or self-care (01) ==
LOC: EDBD 20:10 → M ED 20:10
DX: Z76.5 Malingerer [conscious simulation] (principal); N92.0 Excessive and frequent menstruation with regular cycle; E11.9 Type 2 diabetes mellitus without complications; R51.9 Headache, unspecified; Z88.0 Allergy status to penicillin; Z88.6 Allergy status to analgesic agent; Z88.2 Allergy status to sulfonamides; Z91.040 Latex allergy status

== ENCOUNTER 2024-05-03 05:06 | Emergency (ER) | payer MEDICAID, SELFPAY ==
[~2024-05-03] VITALS: Ht 175.3 cm; Wt 178.3 kg
[~2024-05-03 05:06] MED LIST changes: +PREV1CAP PO
[2024-05-03 07:26] LABS: VENOUS BASE EXCESS 1.1 (-2.0-2.0); VENOUS HCO3 27.9 MMOL/L (23.0-27.0); VENOUS O2 SATURATION 68.1 % (60.0-80.0); VENOUS PARTIAL PRESSURE CO2 56.9 mmHg (38.0-50.0); VENOUS PARTIAL PRESSURE O2 40.1 mmHg (30.0-50.0); VENOUS PH 7.309 UNITS (7.330-7.430); VENOUS STANDARD HCO3 25.1 MMOL/L; VENOUS TOTAL CO2 29.7 MMOL/L (24.0-28.0)
[2024-05-03 07:27] LABS: IONIZED CALCIUM 4.5 MG/DL (4.5-5.3)
[2024-05-03 07:34] LABS: BASO % 0.4 % (0.0-1.0); EOS # 0.2 10^3/uL (0.0-0.5); EOS % 2.4 % (0.0-3.0); HEMATOCRIT 27.9 % (36.0-47.0); HEMOGLOBIN 7.4 g/dl (12.0-15.5); LYMPH # 1.3 10^3/uL (1.5-5.0); LYMPH % 17.3 % (24.0-44.0); MEAN CORPUSCULAR HEMOGLOBIN 20.1 pg (27.0-33.0); MEAN CORPUSCULAR HGB CONC 26.5 g/dl (32.0-36.5); MEAN CORPUSCULAR VOLUME 75.6 fl (80.0-96.0); MONO # 0.6 10^3/uL (0.0-0.8); MONO % 8.2 % (2.0-8.0); NEUTROPHILS # 5.3 10^3/uL (1.5-8.5); NEUTROPHILS % 71.3 % (36.0-66.0); PLATELET COUNT, AUTOMATED 282 10^3/uL (150-450); RED BLOOD COUNT 3.69 10^6/uL (4.00-5.40); WHITE BLOOD COUNT 7.4 10^3/uL (4.0-10.0)
[2024-05-03 08:03] LABS: ALBUMIN 3.1 G/DL (3.2-5.2); ALKALINE PHOSPHATASE 73 U/L (35-104); ALT/SGPT 14 U/L (7.0-40); AST/SGOT < 8 U/L (<34); BILIRUBIN,DIRECT 0.1 MG/DL (<0.4); BILIRUBIN,TOTAL 0.3 MG/DL (0.3-1.2); BLOOD UREA NITROGEN 10 MG/DL (9-23); CALCIUM LEVEL 8.2 MG/DL (8.5-10.1); CARBON DIOXIDE LEVEL 28 MMOL/L (20-31); CHLORIDE LEVEL 106 MMOL/L (98-107); CREATININE FOR GFR 0.69 MG/DL (0.55-1.30); GLOMERULAR FILTRATION RATE > 60.0 (>60); GLUCOSE, FASTING 98 MG/DL (60-100); PHOSPHORUS LEVEL 4.1 MG/DL (2.5-4.9); POTASSIUM SERUM 4.5 MMOL/L (3.5-5.1); SODIUM LEVEL 143 MMOL/L (136-145); TOTAL PROTEIN 6.7 G/DL (5.7-8.2)
[2024-05-03 09:44] LABS: FREE T4 0.72 NG/DL (0.89-1.76); THYROID STIMULATING HORMONE 44.381 uIU/ML (0.55-4.78)
[2024-05-03 10:15] VITALS: BP 131/59; TEMP 97.7; O2SAT 99
[2024-05-04] MEDS ORDERED: OXCA300T14 PO (22:37)
== END 2024-05-03 10:30 | disposition home or self-care (01) ==
LOC: M ED 05:06
DX: F44.5 Conversion disorder with seizures or convulsions (principal); E03.9 Hypothyroidism, unspecified; D50.9 Iron deficiency anemia, unspecified; G47.33 Obstructive sleep apnea (adult) (pediatric); F43.10 Post-traumatic stress disorder, unspecified; F60.3 Borderline personality disorder; E66.01 Morbid (severe) obesity due to excess calories; Z79.899 Other long term (current) drug therapy; Z88.0 Allergy status to penicillin; Z88.6 Allergy status to analgesic agent; Z88.2 Allergy status to sulfonamides; Z91.040 Latex allergy status

== ENCOUNTER 2024-05-03 23:27 | Emergency (ER) | payer MEDICAID ==
[~2024-05-03] VITALS: Ht 175.3 cm; Wt 159.1 kg
[2024-05-04 00:15] LABS: BASO % 0.3 % (0.0-1.0); EOS # 0.2 10^3/uL (0.0-0.5); EOS % 2.4 % (0.0-3.0); HEMATOCRIT 27.8 % (36.0-47.0); HEMOGLOBIN 7.6 g/dl (12.0-15.5); LYMPH # 1.1 10^3/uL (1.5-5.0); LYMPH % 12.8 % (24.0-44.0); MEAN CORPUSCULAR HEMOGLOBIN 20.2 pg (27.0-33.0); MEAN CORPUSCULAR HGB CONC 27.3 g/dl (32.0-36.5); MEAN CORPUSCULAR VOLUME 73.9 fl (80.0-96.0); MONO # 0.6 10^3/uL (0.0-0.8); MONO % 6.9 % (2.0-8.0); NEUTROPHILS # 6.9 10^3/uL (1.5-8.5); NEUTROPHILS % 77.3 % (36.0-66.0); PLATELET COUNT, AUTOMATED 275 10^3/uL (150-450); RED BLOOD COUNT 3.76 10^6/uL (4.00-5.40); WHITE BLOOD COUNT 8.9 10^3/uL (4.0-10.0)
[2024-05-04 00:22] VITALS: TEMP 97.8
[2024-05-04 00:32] LABS: ALBUMIN 3.1 G/DL (3.2-5.2); ALKALINE PHOSPHATASE 77 U/L (35-104); ALT/SGPT 15 U/L (7.0-40); AST/SGOT 14 U/L (<34); BILIRUBIN,DIRECT 0.1 MG/DL (<0.4); BILIRUBIN,TOTAL 0.3 MG/DL (0.3-1.2); BLOOD UREA NITROGEN 9 MG/DL (9-23); CALCIUM LEVEL 8.4 MG/DL (8.5-10.1); CARBON DIOXIDE LEVEL 26 MMOL/L (20-31); CHLORIDE LEVEL 105 MMOL/L (98-107); CK-MB VALUE MASS < 1.0 NG/ML (<3.6); CREATININE FOR GFR 0.62 MG/DL (0.55-1.30); GLOMERULAR FILTRATION RATE > 60.0 (>60); GLUCOSE, FASTING 117 MG/DL (60-100); POTASSIUM SERUM 4.2 MMOL/L (3.5-5.1); SODIUM LEVEL 141 MMOL/L (136-145); TOTAL PROTEIN 6.7 G/DL (5.7-8.2)
[2024-05-04 00:33] LABS: THYROID STIMULATING HORMONE 25.439 uIU/ML (0.55-4.78)
[2024-05-04 00:34] LABS: PROLACTIN 41.27 NG/ML
[2024-05-04 00:36] LABS: CPK CREATINE PHOSPHOKINASE 77 U/L (34-145); MB/CK RELATIVE INDEX 1.29 (< OR =4)
[2024-05-04 00:56] LABS: ETHYL ALCOHOL (ETHANOL) 0.003 % (0.000-0.010)
[2024-05-04] MEDS: KETOROLAC 30 MG/ML 1ML VIAL IV ONE (02:14)
[2024-05-04] MEDS: METOCLOPRAMIDE INJ 10MG/2ML VIAL IV ONE (02:15)
[2024-05-04] MEDS: MAG SULF 1GM/100ML (MAG RUN) 1 GM in IV 1 EA IV ONE (02:19)
[2024-05-04] MEDS: NS (Normal Saline) 0.9% 1,000 ML IV ONE (02:19)
[2024-05-04] MEDS: levETIRAcetam INJection 1,000 MG in D5W 100 ML IV ONE (04:14)
[2024-05-04 06:00] VITALS: BP 120/65
[2024-05-04 06:15] VITALS: O2SAT 98
[2024-05-04] MEDS ORDERED: OXCA300T14 PO (22:37)
== END 2024-05-04 06:27 | disposition home or self-care (01) ==
LOC: M ED 23:27 → EDBD 23:27 → M ED 05-04 06:27
DX: R56.9 Unspecified convulsions (principal); R51.9 Headache, unspecified; Z79.899 Other long term (current) drug therapy; Z88.0 Allergy status to penicillin; Z88.6 Allergy status to analgesic agent; Z88.2 Allergy status to sulfonamides; Z91.040 Latex allergy status
CPT/HCPCS: 70450; 80048; 80076; 80177; 82077; 82550; 82553; 83605; 84146; 84443; 84484; 85025; 93005; 96365; 96366; 96368; 96375; 99285; J1100; J1885; J1953; J2765; J3475

== ENCOUNTER 2024-05-04 17:37 | Emergency (ER) | payer MEDICAID ==
[~2024-05-04] VITALS: Ht 175.3 cm; Wt 159.1 kg
[2024-05-04 18:42] LABS: BASO % 0.3 % (0.0-1.0); EOS % 0.4 % (0.0-3.0); HEMATOCRIT 26.5 % (36.0-47.0); HEMOGLOBIN 7.2 g/dl (12.0-15.5); LYMPH # 1.3 10^3/uL (1.5-5.0); LYMPH % 11.8 % (24.0-44.0); MEAN CORPUSCULAR HEMOGLOBIN 20.5 pg (27.0-33.0); MEAN CORPUSCULAR HGB CONC 27.2 g/dl (32.0-36.5); MEAN CORPUSCULAR VOLUME 75.3 fl (80.0-96.0); MONO # 0.7 10^3/uL (0.0-0.8); MONO % 5.9 % (2.0-8.0); NEUTROPHILS % 81.1 % (36.0-66.0); PLATELET COUNT, AUTOMATED 302 10^3/uL (150-450); RED BLOOD COUNT 3.52 10^6/uL (4.00-5.40); WHITE BLOOD COUNT 11.1 10^3/uL (4.0-10.0)
[2024-05-04 19:04] LABS: ALBUMIN 3.1 G/DL (3.2-5.2); ALKALINE PHOSPHATASE 75 U/L (35-104); ALT/SGPT 14 U/L (7.0-40); AST/SGOT 11 U/L (<34); BILIRUBIN,DIRECT < 0.1 MG/DL (<0.4); BILIRUBIN,TOTAL 0.3 MG/DL (0.3-1.2); BLOOD UREA NITROGEN 11 MG/DL (9-23); CALCIUM LEVEL 8.4 MG/DL (8.5-10.1); CARBON DIOXIDE LEVEL 26 MMOL/L (20-31); CHLORIDE LEVEL 110 MMOL/L (98-107); CREATININE FOR GFR 0.63 MG/DL (0.55-1.30); GLOMERULAR FILTRATION RATE > 60.0 (>60); GLUCOSE, FASTING 113 MG/DL (60-100); HCG, SERUM QUALITATIVE NEGATIVE (NEGATIVE); POTASSIUM SERUM 4.4 MMOL/L (3.5-5.1); SODIUM LEVEL 141 MMOL/L (136-145); TOTAL PROTEIN 6.8 G/DL (5.7-8.2)
[2024-05-04] MEDS ORDERED: ISOVUE-370 76% 100ML VIAL As Ordered ONE (19:44)
[2024-05-04] MEDS: diphenhydrAMINE 50MG/ML VIAL IV STA (20:05)
[2024-05-04] MEDS ORDERED: OXCA300T14 PO (22:37)
[2024-05-04] MEDS: OXcarbazepine 300 MG TAB PO STA (23:14)
[2024-05-05] VITALS: BP 123/62; TEMP 97.9; O2SAT 98
[2024-05-13] MEDS ORDERED: LEVO1TAB38 PO (08:42)
== END 2024-05-05 00:10 | disposition home or self-care (01) ==
LOC: M ED 17:37 → EDBD 17:37 → M ED 05-05 00:10
DX: G40.909 Epilepsy, unspecified, not intractable, without status epilepticus (principal); K21.9 Gastro-esophageal reflux disease without esophagitis; Z85.6 Personal history of leukemia; I67.1 Cerebral aneurysm, nonruptured; Z79.899 Other long term (current) drug therapy; Z88.0 Allergy status to penicillin; Z88.6 Allergy status to analgesic agent; Z88.2 Allergy status to sulfonamides; Z91.040 Latex allergy status; Z91.041 Radiographic dye allergy status
CPT/HCPCS: 70450; 70496; 70498; 80047; 80048; 80076; 80177; 84703; 85025; 94760; 96374; 99285; J1200; Q9967

== ENCOUNTER 2024-05-07 00:15 | Emergency (ER) | payer OTHER, MEDICAID ==
[~2024-05-07] VITALS: Ht 175.3 cm; Wt 145.4 kg
[~2024-05-07 00:15] MED LIST changes: +OXCA300T14 PO
[2024-05-07 07:11] VITALS: TEMP 96.4
[2024-05-07 07:43] LABS: BASO % 0.3 % (0.0-1.0); EOS # 0.2 10^3/uL (0.0-0.5); EOS % 1.9 % (0.0-3.0); HEMATOCRIT 31.6 % (36.0-47.0); HEMOGLOBIN 8.8 g/dl (12.0-15.5); MEAN CORPUSCULAR HEMOGLOBIN 20.6 pg (27.0-33.0); MEAN CORPUSCULAR HGB CONC 27.8 g/dl (32.0-36.5); MONO # 0.7 10^3/uL (0.0-0.8); MONO % 7.6 % (2.0-8.0); NEUTROPHILS # 7.7 10^3/uL (1.5-8.5); NEUTROPHILS % 79.9 % (36.0-66.0); PLATELET COUNT, AUTOMATED 326 10^3/uL (150-450); RED BLOOD COUNT 4.27 10^6/uL (4.00-5.40); WHITE BLOOD COUNT 9.7 10^3/uL (4.0-10.0)
[2024-05-07 08:14] LABS: BLOOD UREA NITROGEN 7 MG/DL (9-23); CALCIUM LEVEL 9.3 MG/DL (8.5-10.1); CARBON DIOXIDE LEVEL 27 MMOL/L (20-31); CHLORIDE LEVEL 104 MMOL/L (98-107); CREATININE FOR GFR 0.72 MG/DL (0.55-1.30); GLOMERULAR FILTRATION RATE > 60.0 (>60); GLUCOSE, FASTING 107 MG/DL (60-100); POTASSIUM SERUM 4.3 MMOL/L (3.5-5.1); SODIUM LEVEL 139 MMOL/L (136-145)
[2024-05-07 08:16] LABS: FREE T4 0.86 NG/DL (0.89-1.76)
[2024-05-07 08:17] LABS: THYROID STIMULATING HORMONE 37.477 uIU/ML (0.55-4.78)
[2024-05-07 08:18] LABS: HCG, SERUM QUALITATIVE NEGATIVE (NEGATIVE)
[2024-05-07 11:46] VITALS: BP 116/78; O2SAT 98
[2024-05-13] MEDS ORDERED: LEVO1TAB38 PO (08:42)
== END 2024-05-07 12:54 | disposition home or self-care (01) ==
LOC: M ED 00:15 → EDBD 00:15 → M ED 12:54
DX: U07.1 COVID-19 (principal); G40.909 Epilepsy, unspecified, not intractable, without status epilepticus; Z91.148 Patient's other noncompliance with medication regimen for other reason; S43.402A Unspecified sprain of left shoulder joint, initial encounter; W19.XXXA Unspecified fall, initial encounter; Y92.9 Unspecified place or not applicable; Y93.9 Activity, unspecified; Y99.9 Unspecified external cause status; E66.9 Obesity, unspecified; E03.9 Hypothyroidism, unspecified; D50.9 Iron deficiency anemia, unspecified; G47.33 Obstructive sleep apnea (adult) (pediatric); Z79.899 Other long term (current) drug therapy; Z91.041 Radiographic dye allergy status; Z88.0 Allergy status to penicillin; Z88.6 Allergy status to analgesic agent; Z91.040 Latex allergy status; Z88.2 Allergy status to sulfonamides

== ENCOUNTER 2024-05-08 04:07 | Emergency (ER) | payer OTHER, MEDICAID ==
[~2024-05-08] VITALS: Ht 175.3 cm; Wt 145.4 kg
[2024-05-08 05:35] LABS: HCG, SERUM QUALITATIVE NEGATIVE (NEGATIVE)
[2024-05-08] MEDS: ONDANSETRON 4MG 2ML VIAL IV ONE (07:18)
[2024-05-08 07:45] LABS: BASO % 0.3 % (0.0-1.0); EOS # 0.1 10^3/uL (0.0-0.5); EOS % 1.5 % (0.0-3.0); HEMATOCRIT 28.2 % (36.0-47.0); HEMOGLOBIN 7.9 g/dl (12.0-15.5); LYMPH % 14.2 % (24.0-44.0); MEAN CORPUSCULAR HEMOGLOBIN 20.7 pg (27.0-33.0); MEAN CORPUSCULAR VOLUME 73.8 fl (80.0-96.0); MONO # 0.8 10^3/uL (0.0-0.8); MONO % 11.9 % (2.0-8.0); NEUTROPHILS % 71.8 % (36.0-66.0); PLATELET COUNT, AUTOMATED 291 10^3/uL (150-450); RED BLOOD COUNT 3.82 10^6/uL (4.00-5.40); WHITE BLOOD COUNT 6.9 10^3/uL (4.0-10.0)
[2024-05-08 08:08] LABS: LIPASE 20 U/L (12-53)
[2024-05-08 08:11] LABS: ALBUMIN 3.3 G/DL (3.2-5.2); ALKALINE PHOSPHATASE 74 U/L (35-104); ALT/SGPT 14 U/L (7.0-40); AST/SGOT < 8 U/L (<34); BILIRUBIN,DIRECT 0.1 MG/DL (<0.4); BILIRUBIN,TOTAL 0.4 MG/DL (0.3-1.2); BLOOD UREA NITROGEN 8 MG/DL (9-23); CALCIUM LEVEL 8.5 MG/DL (8.5-10.1); CARBON DIOXIDE LEVEL 26 MMOL/L (20-31); CHLORIDE LEVEL 106 MMOL/L (98-107); GLOMERULAR FILTRATION RATE > 60.0 (>60); GLUCOSE, FASTING 103 MG/DL (60-100); SODIUM LEVEL 142 MMOL/L (136-145); TOTAL PROTEIN 7.1 G/DL (5.7-8.2)
[2024-05-08 08:13] LABS: FREE T4 0.87 NG/DL (0.89-1.76); THYROID STIMULATING HORMONE 25.676 uIU/ML (0.55-4.78)
[2024-05-08 09:05] VITALS: O2SAT 97
[2024-05-08] MEDS: IBUPROFEN 600MG TAB PO ONE (09:38)
[2024-05-08] MEDS: BENZONATATE 100MG CAPSULE PO ONE (10:19)
[2024-05-08] MEDS: KETOROLAC 30 MG/ML 1ML VIAL IV ONE (10:19)
[2024-05-08 12:19] VITALS: BP 122/69; TEMP 99; O2SAT 98
[2024-05-09] MEDS ORDERED: QUET100T2 PO (13:46)
[2024-05-09] MEDS ORDERED: FLUO-96 PO (13:46)
[2024-05-09] MEDS ORDERED: OXCA300T14 PO (13:46)
[2024-05-09] MEDS ORDERED: LANS30CA93 PO (13:46)
[2024-05-09] MEDS ORDERED: IRON65TA2 PO (17:40)
[2024-05-09] MEDS ORDERED: NITR100C3 PO (17:40)
== END 2024-05-08 12:22 | disposition home or self-care (01) ==
LOC: M ED 04:07 → EDBD 04:07 → M ED 12:22
DX: U07.1 COVID-19 (principal); J98.11 Atelectasis; E11.9 Type 2 diabetes mellitus without complications; E03.9 Hypothyroidism, unspecified; R56.9 Unspecified convulsions; Z79.899 Other long term (current) drug therapy; Z88.0 Allergy status to penicillin; Z88.6 Allergy status to analgesic agent; Z88.2 Allergy status to sulfonamides; Z91.040 Latex allergy status; Z91.041 Radiographic dye allergy status
CPT/HCPCS: 71046; 80047; 80048; 80076; 83605; 83690; 84439; 84443; 84703; 85025; 93005; 93041; 96374; 96375; 99285; J1885; J2405

== ENCOUNTER 2024-05-08 21:56 | Emergency (ER) | payer OTHER, MEDICAID ==
[~2024-05-08] VITALS: Ht 175.3 cm; Wt 145.4 kg
[2024-05-08] MEDS: ACETAMINOPHEN 500 MG TAB PO ONE (22:15)
[2024-05-08] MEDS: ONDANSETRON 4MG ORAL DISINTEGRATING TAB PO ONE (22:18)
[2024-05-09 07:43] LABS: KETONE, URINE AUTO RFX NEGATIVE (NEGATIVE); MUCUS, URINE RFX LARGE (NEGATIVE); NITRITE, URINE AUTO RFX NEGATIVE (NEGATIVE); RBC, URINE AUTO RFX 2 /HPF (0-3); SQUAM EPITHELIAL CELL UR AURFX 5 /HPF (0-6)
[2024-05-09] MEDS: METOCLOPRAMIDE INJ 10MG/2ML VIAL IV ONE (07:50)
[2024-05-09 07:51] LABS: LEUKOCYTE ESTERASE UR AUTO RFX 2+ (NEGATIVE); WBC, URINE AUTO RFX 71 /HPF (0-3)
[2024-05-09 07:59] LABS: BASO % 0.3 % (0.0-1.0); EOS # 0.2 10^3/uL (0.0-0.5); EOS % 2.6 % (0.0-3.0); HEMOGLOBIN 7.8 g/dl (12.0-15.5); LYMPH # 0.8 10^3/uL (1.5-5.0); LYMPH % 13.6 % (24.0-44.0); MEAN CORPUSCULAR HEMOGLOBIN 20.7 pg (27.0-33.0); MEAN CORPUSCULAR HGB CONC 27.9 g/dl (32.0-36.5); MEAN CORPUSCULAR VOLUME 74.5 fl (80.0-96.0); MONO # 0.7 10^3/uL (0.0-0.8); NEUTROPHILS # 4.4 10^3/uL (1.5-8.5); NEUTROPHILS % 71.3 % (36.0-66.0); PLATELET COUNT, AUTOMATED 292 10^3/uL (150-450); RED BLOOD COUNT 3.76 10^6/uL (4.00-5.40); WHITE BLOOD COUNT 6.2 10^3/uL (4.0-10.0)
[2024-05-09 08:30] LABS: LIPASE 26 U/L (12-53)
[2024-05-09 08:33] LABS: ALBUMIN 3.2 G/DL (3.2-5.2); ALKALINE PHOSPHATASE 72 U/L (35-104); ALT/SGPT 13 U/L (7.0-40); AST/SGOT 9 U/L (<34); BILIRUBIN,DIRECT < 0.1 MG/DL (<0.4); BILIRUBIN,TOTAL 0.2 MG/DL (0.3-1.2); BLOOD UREA NITROGEN 11 MG/DL (9-23); CALCIUM LEVEL 8.4 MG/DL (8.5-10.1); CARBON DIOXIDE LEVEL 29 MMOL/L (20-31); CHLORIDE LEVEL 104 MMOL/L (98-107); CREATININE FOR GFR 0.77 MG/DL (0.55-1.30); GLOMERULAR FILTRATION RATE > 60.0 (>60); GLUCOSE, FASTING 109 MG/DL (60-100); POTASSIUM SERUM 4.2 MMOL/L (3.5-5.1); SODIUM LEVEL 141 MMOL/L (136-145)
[2024-05-09] MEDS: KETOROLAC 30 MG/ML 1ML VIAL IV ONE (09:12)
[2024-05-09] MEDS: ONDANSETRON 4MG 2ML VIAL IV ONE (09:13)
[2024-05-09] MEDS ORDERED: GENTAMICIN 120 MG in D5W 50 ML IV ONE (11:10)
[2024-05-09] MEDS: HALOPERIDOL LACTATE 5MG/ML VIAL IV ONE (12:07)
[2024-05-09] MEDS: LevoFLOXacin IV 750 MG in IV 1 EA IV ONE (12:07)
[2024-05-09] MEDS ORDERED: OXCA300T14 PO (13:46)
[2024-05-09] MEDS ORDERED: FLUO-96 PO (13:46)
[2024-05-09] MEDS ORDERED: QUET100T2 PO (13:46)
[2024-05-09] MEDS ORDERED: LANS30CA93 PO (13:46)
[2024-05-09] MEDS ORDERED: HOME MED LIST COMPLETE! XX SCH (14:15)
[2024-05-09] MEDS: diphenhydrAMINE 50MG/ML VIAL IV ONE (15:27)
[2024-05-09 15:52] LABS: CK-MB VALUE MASS < 1.0 NG/ML (<3.6)
[2024-05-09 15:53] LABS: CPK CREATINE PHOSPHOKINASE 62 U/L (34-145); MB/CK RELATIVE INDEX 1.61 (< OR =4)
[2024-05-09] MEDS ORDERED: ISOVUE-370 76% 100ML VIAL As Ordered ONE (16:05)
[2024-05-09 16:16] LABS: HEMATOCRIT 30.4 % (36.0-47.0); HEMOGLOBIN 8.2 g/dl (12.0-15.5); PERCENT SATURATION 2.5 % (13.2-45.0)
[2024-05-09 16:17] LABS: C REACTIVE PROTEIN QUANTITATIV 6.93 MG/DL (<1.0)
[2024-05-09 16:26] LABS: AMPHETAMINES LEVEL URINE NEGATIVE (NEGATIVE); BARBITURATES URINE NEGATIVE (NEGATIVE); BENZODIAZEPINES URINE NEGATIVE (NEGATIVE); COCAINE METABOLITE URINE NEGATIVE (NEGATIVE); METHADONE URINE NEGATIVE (NEGATIVE); OPIATES URINE NEGATIVE (NEGATIVE); PHENCYCLIDINE URINE NEGATIVE (NEGATIVE)
[2024-05-09 16:27] LABS: CANNABINOIDS URINE NEGATIVE (NEGATIVE)
[2024-05-09 16:29] LABS: FERRITIN 13.3 NG/ML (7.3-270.7)
[2024-05-09 16:31] LABS: FOLATE 12.94 NG/ML (>5.4)
[2024-05-09 16:35] LABS: PROCALCITONIN 0.08 ng/ml
[2024-05-09] MEDS ORDERED: NITR100C3 PO (17:40)
[2024-05-09] MEDS ORDERED: IRON65TA2 PO (17:40)
[2024-05-09 18:06] VITALS: BP 120/57; TEMP 97.2; O2SAT 95
[2024-05-09] MEDS: FOSFOMYCIN TROMETHAMINE 3 GM POWDER PACKET (MONUROL) PO ONE (18:24)
[2024-05-09 20:13] LABS: HCG, SERUM QUALITATIVE NEGATIVE (NEGATIVE)
[2024-05-09] MEDS ORDERED: levETIRAcetam 250MG TABLET (KEPPRA) PO SCH (21:00)
[2024-05-09] MEDS ORDERED: guaiFENesin ER TABLET 600 MG TAB PO SCH (21:00)
[2024-05-09] MEDS ORDERED: OXcarbazepine 300 MG TAB PO SCH (21:00)
[2024-05-09] MEDS ORDERED: QUEtiapine FUMARATE 100 MG TAB PO SCH (21:00)
[2024-05-10] MEDS ORDERED: LEVOTHYROXINE 100MCG TABLET (0.1MG) PO SCH (06:00)
[2024-05-10] MEDS ORDERED: FLUoxetine 20MG CAP PO SCH (09:00)
[2024-05-10] MEDS ORDERED: PANTOPRAZOLE 40MG TAB (PROTONIX) PO SCH (09:00)
[2024-05-13] MEDS ORDERED: LEVO1TAB38 PO (08:42)
== END 2024-05-09 18:50 | disposition home or self-care (01) ==
LOC: M ED 21:56 → EEVIPCON 21:56 → EDBEDREQTM 05-09 14:06 → M ED 05-09 18:50
DX: N10 Acute pyelonephritis (principal); F12.188 Cannabis abuse with other cannabis-induced disorder; R91.8 Other nonspecific abnormal finding of lung field; E11.9 Type 2 diabetes mellitus without complications; E03.9 Hypothyroidism, unspecified; R56.9 Unspecified convulsions; Z86.16 Personal history of COVID-19; G47.33 Obstructive sleep apnea (adult) (pediatric); E66.01 Morbid (severe) obesity due to excess calories; D50.9 Iron deficiency anemia, unspecified; Z79.899 Other long term (current) drug therapy; Z91.041 Radiographic dye allergy status; Z91.040 Latex allergy status; Z88.0 Allergy status to penicillin; Z88.6 Allergy status to analgesic agent; Z88.2 Allergy status to sulfonamides; Z88.8 Allergy status to other drugs, medicaments and biological substances
CPT/HCPCS: 71045; 71275; 74176; 74177; 80048; 80076; 80307; 81001; 82550; 82553; 82607; 82728; 82746; 83550; 83690; 83735; 84145; 84466; 84484; 84703; 85014; 85018; 85025; 85046; 86140; 87088; 87186; 93005; 96365; 96366; 96375; 99284; J1200; J1630; J1885; J1956; J2405; J2765; Q9967

== ENCOUNTER 2024-05-14 01:54 | Emergency (ER) | payer MEDICAID, OTHER ==
[~2024-05-14] VITALS: Ht 175.3 cm; Wt 130.2 kg
[~2024-05-14 01:54] MED LIST changes: +FLUO-96 PO; +IRON65TA2 PO; +LANS30CA93 PO; +LEVO1TAB38 PO; +NITR100C3 PO; +QUET100T2 PO
[2024-05-14] MEDS: IBUPROFEN 600MG TAB PO ONE (08:46)
[2024-05-14] MEDS: ONDANSETRON 4MG ORAL DISINTEGRATING TAB PO ONE (09:31)
[2024-05-14 09:37] VITALS: BP 130/96; TEMP 97.2; O2SAT 97
== END 2024-05-14 09:37 | disposition home or self-care (01) ==
LOC: M ED 01:54 → EDBD 01:54 → M ED 09:37
DX: S09.90XA Unspecified injury of head, initial encounter (principal); Y04.8XXA Assault by other bodily force, initial encounter; Y92.009 Unspecified place in unspecified non-institutional (private) residence as the place of occurrence of the external cause; Y93.9 Activity, unspecified; Y99.9 Unspecified external cause status; R56.9 Unspecified convulsions; G47.30 Sleep apnea, unspecified; E11.9 Type 2 diabetes mellitus without complications; E03.9 Hypothyroidism, unspecified; Z86.79 Personal history of other diseases of the circulatory system; Z86.16 Personal history of COVID-19; Z79.899 Other long term (current) drug therapy; Z88.0 Allergy status to penicillin; Z88.6 Allergy status to analgesic agent; Z88.2 Allergy status to sulfonamides; Z88.8 Allergy status to other drugs, medicaments and biological substances; Z91.041 Radiographic dye allergy status; Z91.018 Allergy to other foods; Z91.040 Latex allergy status

== ENCOUNTER 2024-05-16 04:40 | Emergency (ER) | payer MEDICAID ==
[~2024-05-16] VITALS: Ht 175.3 cm; Wt 175.0 kg
[2024-05-16 07:05] LABS: HEMATOCRIT 28.6 % (36.0-47.0); HEMOGLOBIN 7.8 g/dl (12.0-15.5); MEAN CORPUSCULAR HEMOGLOBIN 20.3 pg (27.0-33.0); MEAN CORPUSCULAR HGB CONC 27.3 g/dl (32.0-36.5); MEAN CORPUSCULAR VOLUME 74.3 fl (80.0-96.0); PLATELET COUNT, AUTOMATED 355 10^3/uL (150-450); RED BLOOD COUNT 3.85 10^6/uL (4.00-5.40); WHITE BLOOD COUNT 10.1 10^3/uL (4.0-10.0)
[2024-05-16 07:33] LABS: HCG, SERUM QUALITATIVE NEGATIVE (NEGATIVE)
[2024-05-16 07:34] LABS: ETHYL ALCOHOL (ETHANOL) 0.005 % (0.000-0.010)
[2024-05-16 07:36] LABS: SALICYLATE LEVEL < 3.0 MG/DL (<30)
[2024-05-16 07:37] LABS: ALBUMIN 3.3 G/DL (3.2-5.2); ALKALINE PHOSPHATASE 68 U/L (35-104); ALT/SGPT 13 U/L (7.0-40); AST/SGOT < 8 U/L (<34); BILIRUBIN,DIRECT < 0.1 MG/DL (<0.4); BILIRUBIN,TOTAL 0.3 MG/DL (0.3-1.2); BLOOD UREA NITROGEN 15 MG/DL (9-23); CALCIUM LEVEL 8.7 MG/DL (8.5-10.1); CARBON DIOXIDE LEVEL 26 MMOL/L (20-31); CHLORIDE LEVEL 108 MMOL/L (98-107); CREATININE FOR GFR 0.76 MG/DL (0.55-1.30); GLOMERULAR FILTRATION RATE > 60.0 (>60); GLUCOSE, FASTING 146 MG/DL (60-100); POTASSIUM SERUM 4.3 MMOL/L (3.5-5.1); SODIUM LEVEL 142 MMOL/L (136-145); TOTAL PROTEIN 7.3 G/DL (5.7-8.2)
[2024-05-16 07:39] LABS: THYROID STIMULATING HORMONE 7.547 uIU/ML (0.55-4.78)
[2024-05-16 08:36] LABS: AMPHETAMINES LEVEL URINE NEGATIVE (NEGATIVE); BARBITURATES URINE NEGATIVE (NEGATIVE); BENZODIAZEPINES URINE NEGATIVE (NEGATIVE); CANNABINOIDS URINE NEGATIVE (NEGATIVE); COCAINE METABOLITE URINE NEGATIVE (NEGATIVE); METHADONE URINE NEGATIVE (NEGATIVE); OPIATES URINE NEGATIVE (NEGATIVE); PHENCYCLIDINE URINE NEGATIVE (NEGATIVE)
[2024-05-16 09:06] VITALS: BP 135/82; TEMP 97.7; O2SAT 98
== END 2024-05-16 09:49 | disposition home or self-care (01) ==
LOC: M ED 04:40
DX: F19.10 Other psychoactive substance abuse, uncomplicated (principal); E03.9 Hypothyroidism, unspecified; D64.9 Anemia, unspecified; Z85.6 Personal history of leukemia; Z79.899 Other long term (current) drug therapy; Z88.0 Allergy status to penicillin; Z88.6 Allergy status to analgesic agent; Z88.2 Allergy status to sulfonamides; Z88.8 Allergy status to other drugs, medicaments and biological substances; Z91.041 Radiographic dye allergy status; Z91.040 Latex allergy status

== ENCOUNTER 2024-05-27 13:25 | Emergency (ER) | payer MEDICAID ==
[~2024-05-27] VITALS: Ht 175.3 cm; Wt 174.5 kg
[2024-05-27 14:18] LABS: BASO % 0.2 % (0.0-1.0); EOS # 0.3 10^3/uL (0.0-0.5); EOS % 3.1 % (0.0-3.0); HEMOGLOBIN 7.1 g/dl (12.0-15.5); LYMPH # 1.2 10^3/uL (1.5-5.0); LYMPH % 10.9 % (24.0-44.0); MEAN CORPUSCULAR HEMOGLOBIN 19.6 pg (27.0-33.0); MEAN CORPUSCULAR HGB CONC 27.3 g/dl (32.0-36.5); MEAN CORPUSCULAR VOLUME 71.6 fl (80.0-96.0); MONO # 0.8 10^3/uL (0.0-0.8); MONO % 7.3 % (2.0-8.0); NEUTROPHILS # 8.2 10^3/uL (1.5-8.5); NEUTROPHILS % 78.1 % (36.0-66.0); PLATELET COUNT, AUTOMATED 338 10^3/uL (150-450); RED BLOOD COUNT 3.63 10^6/uL (4.00-5.40); WHITE BLOOD COUNT 10.5 10^3/uL (4.0-10.0)
[2024-05-27 14:52] LABS: BLOOD UREA NITROGEN 8 MG/DL (9-23); CALCIUM LEVEL 8.6 MG/DL (8.5-10.1); CARBON DIOXIDE LEVEL 30 MMOL/L (20-31); CHLORIDE LEVEL 103 MMOL/L (98-107); CREATININE FOR GFR 0.77 MG/DL (0.55-1.30); GLOMERULAR FILTRATION RATE > 60.0 (>60); GLUCOSE, FASTING 110 MG/DL (60-100); POTASSIUM SERUM 4.4 MMOL/L (3.5-5.1); SODIUM LEVEL 140 MMOL/L (136-145)
[2024-05-27] MEDS: IPRATROPIUM 0.5MG/ALBUTEROL 2.5MG INH SOL UD 3ML (DUONEB) NEB ONE (18:25)
[2024-05-27 18:43] LABS: CK-MB VALUE MASS < 1.0 NG/ML (<3.6)
[2024-05-27 18:44] LABS: CPK CREATINE PHOSPHOKINASE 33 U/L (34-145); MB/CK RELATIVE INDEX 3.03 (< OR =4)
[2024-05-27 21:47] LABS: CK-MB VALUE MASS < 1.0 NG/ML (<3.6)
[2024-05-27] MEDS ORDERED: AZIT-12 PO (21:47)
[2024-05-27] MEDS ORDERED: PRED10TA2 PO (21:47)
[2024-05-27 21:48] LABS: CPK CREATINE PHOSPHOKINASE 36 U/L (34-145); MB/CK RELATIVE INDEX 2.77 (< OR =4)
[2024-05-27] MEDS ORDERED: CEFP200T PO (21:57)
[2024-05-27] MEDS ORDERED: FAMOTIDINE 20 MG TAB PO ONE (22:00)
[2024-05-27] MEDS ORDERED: KETOROLAC 30 MG/ML 1ML VIAL IV ONE (22:00)
[2024-05-27] MEDS ORDERED: ONDANSETRON 4MG 2ML VIAL IV ONE (22:00)
[2024-05-27 22:07] VITALS: BP 110/57; TEMP 98.7; O2SAT 100
== END 2024-05-27 22:11 | disposition home or self-care (01) ==
LOC: M ED 13:25 → EDBD 13:25 → M ED 22:11
DX: J18.9 Pneumonia, unspecified organism (principal); F12.10 Cannabis abuse, uncomplicated; D69.3 Immune thrombocytopenic purpura; Z85.6 Personal history of leukemia; D50.8 Other iron deficiency anemias; G40.909 Epilepsy, unspecified, not intractable, without status epilepticus; G47.33 Obstructive sleep apnea (adult) (pediatric); Z76.5 Malingerer [conscious simulation]; Z79.899 Other long term (current) drug therapy; Z88.0 Allergy status to penicillin; Z88.2 Allergy status to sulfonamides; Z88.8 Allergy status to other drugs, medicaments and biological substances; Z91.041 Radiographic dye allergy status; Z91.040 Latex allergy status; Z91.018 Allergy to other foods

== ENCOUNTER 2024-06-10 21:26 | Emergency (ER) | payer MEDICAID ==
[~2024-06-10] VITALS: Ht 175.3 cm; Wt 172.7 kg
[~2024-06-10 21:26] MED LIST changes: +AZIT-12 PO; +CEFP200T PO; +PRED10TA2 PO
[2024-06-10 22:33] LABS: HEMATOCRIT 27.2 % (36.0-47.0); HEMOGLOBIN 7.4 g/dl (12.0-15.5); MEAN CORPUSCULAR HGB CONC 27.2 g/dl (32.0-36.5); MEAN CORPUSCULAR VOLUME 69.7 fl (80.0-96.0); PLATELET COUNT, AUTOMATED 410 10^3/uL (150-450); WHITE BLOOD COUNT 9.9 10^3/uL (4.0-10.0)
[2024-06-10 23:02] LABS: ALBUMIN 3.3 G/DL (3.2-5.2); ALKALINE PHOSPHATASE 69 U/L (35-104); ALT/SGPT 10 U/L (7.0-40); AST/SGOT 9 U/L (<34); BILIRUBIN,TOTAL 0.5 MG/DL (0.3-1.2); BLOOD UREA NITROGEN 10 MG/DL (9-23); CALCIUM LEVEL 8.8 MG/DL (8.5-10.1); CARBON DIOXIDE LEVEL 27 MMOL/L (20-31); CHLORIDE LEVEL 105 MMOL/L (98-107); CREATININE FOR GFR 0.64 MG/DL (0.55-1.30); GLOMERULAR FILTRATION RATE > 60.0 (>60); GLUCOSE, FASTING 104 MG/DL (60-100); SODIUM LEVEL 139 MMOL/L (136-145); TOTAL PROTEIN 7.4 G/DL (5.7-8.2)
[2024-06-10 23:05] LABS: HCG, SERUM QUALITATIVE NEGATIVE (NEGATIVE)
[2024-06-10 23:34] LABS: HIV 1&2 SCREEN NEGATIVE (NEGATIVE)
[2024-06-11 10:19] LABS: BASO % 0.4 % (0.0-1.0); EOS % 9.5 % (0.0-3.0); LYMPH # 1.7 10^3/uL (1.5-5.0); LYMPH % 16.5 % (24.0-44.0); MONO # 0.6 10^3/uL (0.0-0.8); MONO % 5.8 % (2.0-8.0); NEUTROPHILS # 6.8 10^3/uL (1.5-8.5); NEUTROPHILS % 67.4 % (36.0-66.0)
[2024-06-11] MEDS: PANTOPRAZOLE 40MG VIAL IV ONE (10:31)
[2024-06-11 11:28] LABS: KETONE, URINE AUTO RFX NEGATIVE (NEGATIVE); LEUKOCYTE ESTERASE UR AUTO RFX NEGATIVE (NEGATIVE); MUCUS, URINE RFX LARGE (NEGATIVE); NITRITE, URINE AUTO RFX NEGATIVE (NEGATIVE); RBC, URINE AUTO RFX TNTC /HPF (0-3); SQUAM EPITHELIAL CELL UR AURFX 2 /HPF (0-6); WBC, URINE AUTO RFX 0 /HPF (0-3)
[2024-06-11 11:35] LABS: AMPHETAMINES LEVEL URINE NEGATIVE (NEGATIVE); BARBITURATES URINE NEGATIVE (NEGATIVE); BENZODIAZEPINES URINE NEGATIVE (NEGATIVE); COCAINE METABOLITE URINE NEGATIVE (NEGATIVE); METHADONE URINE NEGATIVE (NEGATIVE); OPIATES URINE NEGATIVE (NEGATIVE); PHENCYCLIDINE URINE NEGATIVE (NEGATIVE)
[2024-06-11 11:37] LABS: CANNABINOIDS URINE POSITIVE (NEGATIVE)
[2024-06-11] MEDS ORDERED: FERR325T3 PO (12:51)
[2024-06-11] MEDS ORDERED: OMEP40CA4 PO (12:51)
[2024-06-11 13:13] VITALS: BP 132/86; TEMP 98; O2SAT 96
== END 2024-06-11 13:24 | disposition home or self-care (01) ==
LOC: M ED 21:26
DX: D64.9 Anemia, unspecified (principal); K92.0 Hematemesis; R31.9 Hematuria, unspecified; E11.9 Type 2 diabetes mellitus without complications; E03.9 Hypothyroidism, unspecified; R56.9 Unspecified convulsions; E66.9 Obesity, unspecified; Z79.899 Other long term (current) drug therapy; Z88.0 Allergy status to penicillin; Z88.6 Allergy status to analgesic agent; Z88.2 Allergy status to sulfonamides; Z91.040 Latex allergy status; Z91.041 Radiographic dye allergy status; Z91.013 Allergy to seafood
CPT/HCPCS: 70450; 74176; 80053; 80307; 81001; 84703; 85027; 87389; 93005; 96374; 99284; J2470

== ENCOUNTER 2024-06-15 20:43 | Emergency (ER) | payer MEDICAID ==
[~2024-06-15] VITALS: Ht 175.3 cm; Wt 172.7 kg
[~2024-06-15 20:43] MED LIST changes: +FERR325T3 PO; +OMEP40CA4 PO
[2024-06-16] MEDS: ONDANSETRON 4MG ORAL DISINTEGRATING TAB PO ONE (06:50)
[2024-06-16] MEDS ORDERED: NAPR-837 PO (08:13)
[2024-06-16] MEDS ORDERED: ONDA-282 PO (08:13)
[2024-06-16 09:15] LABS: KETONE, URINE AUTO RFX NEGATIVE (NEGATIVE); MUCUS, URINE RFX LARGE (NEGATIVE); NITRITE, URINE AUTO RFX NEGATIVE (NEGATIVE); RBC, URINE AUTO RFX TNTC /HPF (0-3); SQUAM EPITHELIAL CELL UR AURFX 12 /HPF (0-6)
[2024-06-16 09:55] LABS: LEUKOCYTE ESTERASE UR AUTO RFX 1+ (NEGATIVE); WBC, URINE AUTO RFX 21 /HPF (0-3)
[2024-06-16] MEDS: FOSFOMYCIN TROMETHAMINE 3 GM POWDER PACKET (MONUROL) PO ONE (10:19)
[2024-06-16 10:31] VITALS: BP 129/56; TEMP 98.6; O2SAT 99
== END 2024-06-16 10:37 | disposition home or self-care (01) ==
LOC: M ED 20:43
DX: N30.00 Acute cystitis without hematuria (principal); S43.402A Unspecified sprain of left shoulder joint, initial encounter; S53.402A Unspecified sprain of left elbow, initial encounter; W19.XXXA Unspecified fall, initial encounter; Y92.9 Unspecified place or not applicable; Y93.9 Activity, unspecified; Y99.9 Unspecified external cause status; D64.9 Anemia, unspecified; F19.10 Other psychoactive substance abuse, uncomplicated; F43.10 Post-traumatic stress disorder, unspecified; G47.33 Obstructive sleep apnea (adult) (pediatric); E03.9 Hypothyroidism, unspecified; Z79.899 Other long term (current) drug therapy; Z88.0 Allergy status to penicillin; Z88.2 Allergy status to sulfonamides; Z88.8 Allergy status to other drugs, medicaments and biological substances; Z91.041 Radiographic dye allergy status; Z91.040 Latex allergy status; Z91.018 Allergy to other foods

== ENCOUNTER 2024-06-24 00:44 | Emergency (ER) | payer MEDICAID ==
[~2024-06-24] VITALS: Ht 175.3 cm; Wt 172.7 kg
[~2024-06-24 00:44] MED LIST changes: +NAPR-837 PO; +ONDA-282 PO
[2024-06-24] MEDS ORDERED: PRED20TA PO (05:04)
[2024-06-24] MEDS: predniSONE 20 MG TAB PO ONE (05:08)
[2024-06-24] MEDS: IPRATROPIUM 0.5MG/ALBUTEROL 2.5MG INH SOL UD 3ML NEB ONE (05:15)
[2024-06-24 05:36] VITALS: BP 106/46; TEMP 98.2; O2SAT 99
== END 2024-06-24 05:24 | disposition home or self-care (01) ==
LOC: EDBD 00:44 → M ED 00:44
DX: U07.1 COVID-19 (principal); J20.9 Acute bronchitis, unspecified; Z88.0 Allergy status to penicillin; Z88.1 Allergy status to other antibiotic agents; Z88.2 Allergy status to sulfonamides; Z88.6 Allergy status to analgesic agent; Z91.040 Latex allergy status; Z91.013 Allergy to seafood; Z79.52 Long term (current) use of systemic steroids; Z79.899 Other long term (current) drug therapy
CPT/HCPCS: 87486; 87581; 87633; 87798; 94640; 99284; J7512

== ENCOUNTER 2024-06-25 18:54 | Emergency (ER) | payer MEDICAID, SELFPAY ==
[~2024-06-25] VITALS: Ht 175.3 cm; Wt 172.7 kg
[~2024-06-25 18:54] MED LIST changes: +PRED20TA PO
[2024-06-26 06:27] VITALS: BP 122/72; TEMP 98.7; O2SAT 96
== END 2024-06-26 11:05 | disposition left against medical advice (07) ==
LOC: M ED 18:54
DX: Z53.21 Procedure and treatment not carried out due to patient leaving prior to being seen by health care provider (principal)

== ENCOUNTER 2024-06-27 17:57 | Emergency (ER) | payer MEDICAID, SELFPAY ==
[~2024-06-27] VITALS: Ht 175.3 cm; Wt 172.4 kg
[2024-06-27] MEDS: ASPIRIN 325 MG TAB PO ONE (18:45)
[2024-06-27] MEDS: IPRATROPIUM 0.5MG/ALBUTEROL 2.5MG INH SOL UD 3ML NEB ONE (22:09)
[2024-06-28] VITALS (10 sets, daily range): BP systolic 92–122; BP diastolic 43–79; TEMP 96–99.1; O2SAT 93–99
[2024-06-28 00:44] LABS: BLOOD UREA NITROGEN 11 MG/DL (9-23); CALCIUM LEVEL 8.2 MG/DL (8.5-10.1); CARBON DIOXIDE LEVEL 30 MMOL/L (20-31); CHLORIDE LEVEL 101 MMOL/L (98-107); CK-MB VALUE MASS < 1.0 NG/ML (<3.6); CPK CREATINE PHOSPHOKINASE 31 U/L (34-145); CREATININE FOR GFR 0.65 MG/DL (0.55-1.30); GLOMERULAR FILTRATION RATE > 90.0 (>60); GLUCOSE, FASTING 120 MG/DL (60-100); MB/CK RELATIVE INDEX 3.22 (< OR =4); POTASSIUM SERUM 4.3 MMOL/L (3.5-5.1); SODIUM LEVEL 137 MMOL/L (136-145)
[2024-06-28 01:31] LABS: BASO % 0.2 % (0.0-1.0); EOS # 0.8 10^3/uL (0.0-0.5); EOS % 5.7 % (0.0-3.0); LYMPH # 1.6 10^3/uL (1.5-5.0); MEAN CORPUSCULAR HEMOGLOBIN 18.6 pg (27.0-33.0); MEAN CORPUSCULAR HGB CONC 27.1 g/dl (32.0-36.5); MEAN CORPUSCULAR VOLUME 68.8 fl (80.0-96.0); MONO # 0.8 10^3/uL (0.0-0.8); MONO % 5.9 % (2.0-8.0); NEUTROPHILS # 10.8 10^3/uL (1.5-8.5); NEUTROPHILS % 76.6 % (36.0-66.0); PLATELET COUNT, AUTOMATED 440 10^3/uL (150-450); RED BLOOD COUNT 2.95 10^6/uL (4.00-5.40); WHITE BLOOD COUNT 14.1 10^3/uL (4.0-10.0)
[2024-06-28 01:37] LABS: HEMATOCRIT 20.3 % (36.0-47.0)
[2024-06-28 01:39] LABS: HEMOGLOBIN 5.5 g/dl (12.0-15.5)
[2024-06-28] MEDS: PANTOPRAZOLE 40MG VIAL IV ONE (04:33)
[2024-06-28 04:51] LABS: ALBUMIN 2.7 G/DL (3.2-5.2); ALKALINE PHOSPHATASE 82 U/L (35-104); ALT/SGPT 29 U/L (7.0-40); AST/SGOT 8 U/L (<34); BILIRUBIN,DIRECT 0.1 MG/DL (<0.4); BILIRUBIN,TOTAL 0.3 MG/DL (0.3-1.2); TOTAL PROTEIN 6.5 G/DL (5.7-8.2)
[2024-06-28 08:58] LABS: AMPHETAMINES LEVEL URINE NEGATIVE (NEGATIVE); BARBITURATES URINE NEGATIVE (NEGATIVE); BENZODIAZEPINES URINE NEGATIVE (NEGATIVE); CANNABINOIDS URINE NEGATIVE (NEGATIVE); COCAINE METABOLITE URINE NEGATIVE (NEGATIVE); METHADONE URINE NEGATIVE (NEGATIVE); OPIATES URINE NEGATIVE (NEGATIVE); PHENCYCLIDINE URINE NEGATIVE (NEGATIVE)
== END 2024-06-28 09:50 | disposition short-term general hospital (02) ==
LOC: M ED 17:57 → EDBD 17:57 → M ED 06-28 09:50
DX: K92.2 Gastrointestinal hemorrhage, unspecified (principal); D64.9 Anemia, unspecified; J45.909 Unspecified asthma, uncomplicated; R91.8 Other nonspecific abnormal finding of lung field; I31.39 Other pericardial effusion (noninflammatory); J90 Pleural effusion, not elsewhere classified; F19.10 Other psychoactive substance abuse, uncomplicated; Z88.0 Allergy status to penicillin; Z88.6 Allergy status to analgesic agent; Z88.1 Allergy status to other antibiotic agents; Z88.2 Allergy status to sulfonamides; Z88.8 Allergy status to other drugs, medicaments and biological substances; Z91.041 Radiographic dye allergy status; Z91.040 Latex allergy status; Z90.49 Acquired absence of other specified parts of digestive tract; Z79.899 Other long term (current) drug therapy; Z79.890 Hormone replacement therapy
CPT/HCPCS: 36430; 71046; 71250; 73100; 74176; 80048; 80076; 80307; 82550; 82553; 84484; 85025; 86850; 86900; 86901; 86920; 87486; 87581; 87633; 87798; 93005; 96374; 99285; J2470; P9016

== ENCOUNTER 2024-07-17 18:12 | Emergency (ER) | payer MEDICAID ==
[~2024-07-17] VITALS: Ht 175.3 cm; Wt 169.1 kg
[2024-07-17] MEDS: ONDANSETRON 4MG ORAL DISINTEGRATING TAB PO ONE (18:54)
[2024-07-17 19:30] LABS: BASO % 0.1 % (0.0-1.0); EOS # 0.2 10^3/uL (0.0-0.5); EOS % 0.9 % (0.0-3.0); HEMATOCRIT 36.8 % (36.0-47.0); HEMOGLOBIN 10.4 g/dl (12.0-15.5); LYMPH # 1.5 10^3/uL (1.5-5.0); LYMPH % 7.6 % (24.0-44.0); MEAN CORPUSCULAR HEMOGLOBIN 22.4 pg (27.0-33.0); MEAN CORPUSCULAR HGB CONC 28.3 g/dl (32.0-36.5); MEAN CORPUSCULAR VOLUME 79.3 fl (80.0-96.0); MONO # 1.6 10^3/uL (0.0-0.8); MONO % 7.7 % (2.0-8.0); NEUTROPHILS # 16.8 10^3/uL (1.5-8.5); NEUTROPHILS % 83.2 % (36.0-66.0); PLATELET COUNT, AUTOMATED 328 10^3/uL (150-450); RED BLOOD COUNT 4.64 10^6/uL (4.00-5.40); WHITE BLOOD COUNT 20.2 10^3/uL (4.0-10.0)
[2024-07-17 19:42] LABS: INR 0.97; PARTIAL THROMBOPLASTIN TIME 23.4 SECONDS (24.8-34.2); PROTHROMBIN TIME 13.2 SECONDS (12.5-14.5)
[2024-07-17 19:47] LABS: LIPASE 45 U/L (12-53)
[2024-07-17 19:49] LABS: ALKALINE PHOSPHATASE 63 U/L (35-104); ALT/SGPT 30 U/L (7.0-40); AST/SGOT 9 U/L (<34); BILIRUBIN,DIRECT 0.2 MG/DL (<0.4); BILIRUBIN,TOTAL 0.4 MG/DL (0.3-1.2); BLOOD UREA NITROGEN 20 MG/DL (9-23); CALCIUM LEVEL 8.6 MG/DL (8.5-10.1); CARBON DIOXIDE LEVEL 31 MMOL/L (20-31); CHLORIDE LEVEL 102 MMOL/L (98-107); CREATININE FOR GFR 0.68 MG/DL (0.55-1.30); GLOMERULAR FILTRATION RATE > 90.0 (>60); GLUCOSE, FASTING 115 MG/DL (60-100); SODIUM LEVEL 142 MMOL/L (136-145)
[2024-07-17] MEDS: PROMETHAZINE 25MG/ML 1ML VIAL IV ONE (20:05)
[2024-07-17] MEDS: PANTOPRAZOLE 40MG VIAL IV ONE (20:07)
[2024-07-17] MEDS ORDERED: ISOVUE-370 76% 100ML VIAL As Ordered ONE (21:06)
[2024-07-17] MEDS: diphenhydrAMINE 50MG/ML VIAL IV STA (21:14)
[2024-07-17] MEDS: methylPREDNISolone 125MG 2ML VIAL IV ONE (21:14)
[2024-07-17] MEDS ORDERED: HEPARIN SOD (PORCINE) 5000UNITS/ML 1ML VIAL/SYRINGE IV PRN (21:35)
[2024-07-17 22:01] LABS: CK-MB VALUE MASS < 1.0 NG/ML (<3.6)
[2024-07-17 22:04] LABS: CPK CREATINE PHOSPHOKINASE 28 U/L (34-145); MB/CK RELATIVE INDEX 3.57 (< OR =4)
[2024-07-17] MEDS: HEPARIN SOD (PORCINE) 5000UNITS/ML 1ML VIAL/SYRINGE IV ONE (22:21)
[2024-07-17] MEDS: HEPARIN DRIP 25,000 UNITS in IV 1 EA IV SCH (22:24)
[2024-07-17] MEDS: NS 500 ML IV ONE (22:30)
[2024-07-17] MEDS ORDERED: NS 500 ML IV ONE (22:45)
[2024-07-17] MEDS: NS (Normal Saline) 0.9% 1,000 ML IV SCH (23:08)
[2024-07-17 23:12] VITALS: TEMP 97.9
[2024-07-17 23:17] VITALS: BP 98/56; O2SAT 96
[2024-07-17] MEDS: MORPHINE 2 MG/ML 1ML VIAL IV ONE (23:17)
== END 2024-07-17 23:20 | disposition short-term general hospital (02) ==
LOC: EDBD 18:12 → M ED 18:12
DX: K92.2 Gastrointestinal hemorrhage, unspecified (principal); I82.611 Acute embolism and thrombosis of superficial veins of right upper extremity; I51.7 Cardiomegaly; R91.8 Other nonspecific abnormal finding of lung field; G40.89 Other seizures; E03.9 Hypothyroidism, unspecified; Z79.899 Other long term (current) drug therapy; Z88.0 Allergy status to penicillin; Z88.6 Allergy status to analgesic agent; Z88.2 Allergy status to sulfonamides; Z88.8 Allergy status to other drugs, medicaments and biological substances; Z91.040 Latex allergy status; Z91.041 Radiographic dye allergy status; Z91.018 Allergy to other foods
CPT/HCPCS: 70450; 71275; 74177; 80048; 80076; 82550; 82553; 83690; 84484; 85025; 85610; 85730; 86850; 86900; 86901; 93005; 93041; 93971; 96365; 96375; 99285; J1200; J2470; J2550; J2919; Q9967

== ENCOUNTER 2024-07-19 23:57 | Emergency (ER) | payer MEDICAID ==
[~2024-07-19] VITALS: Ht 175.3 cm; Wt 136.1 kg
[2024-07-20] MEDS ORDERED: XARE15TA PO (00:09)
[2024-07-20] MEDS ORDERED: XARE20TA PO (00:09)
[2024-07-20 02:56] VITALS: BP 123/71; TEMP 97.9; O2SAT 96
[2024-07-20] MEDS ORDERED: diphenhydrAMINE 50MG/ML VIAL IV ONE (08:30)
[2024-07-20] MEDS ORDERED: methylPREDNISolone 125MG 2ML VIAL IV ONE (08:30)
[2024-07-20] MEDS ORDERED: PRED5TA PO (09:18)
[2024-07-20] MEDS ORDERED: PRED20TA PO (09:18)
== END 2024-07-20 09:35 | disposition other institution (70) ==
LOC: M ED 23:57
DX: K92.0 Hematemesis (principal); W10.9XXA Fall (on) (from) unspecified stairs and steps, initial encounter; Z53.9 Procedure and treatment not carried out, unspecified reason; E11.9 Type 2 diabetes mellitus without complications; Z86.718 Personal history of other venous thrombosis and embolism; Z91.041 Radiographic dye allergy status; Z88.0 Allergy status to penicillin; Z88.6 Allergy status to analgesic agent; Z88.2 Allergy status to sulfonamides; Z88.8 Allergy status to other drugs, medicaments and biological substances; Z91.013 Allergy to seafood; Z91.040 Latex allergy status

== ENCOUNTER 2024-07-22 21:37 | Inpatient (IN) | payer MEDICAID, OTHER ==
[~2024-07-22] VITALS: Ht 175.3 cm; Wt 182.5 kg
[~2024-07-22 21:37] MED LIST changes: +PRED5TA PO; +XARE15TA PO; +XARE20TA PO
[2024-07-23 02:05] LABS: BASO % 0.1 % (0.0-1.0); EOS % 0.2 % (0.0-3.0); HEMATOCRIT 34.9 % (36.0-47.0); LYMPH # 0.7 10^3/uL (1.5-5.0); LYMPH % 5.9 % (24.0-44.0); MEAN CORPUSCULAR HEMOGLOBIN 22.7 pg (27.0-33.0); MEAN CORPUSCULAR HGB CONC 28.7 g/dl (32.0-36.5); MEAN CORPUSCULAR VOLUME 79.3 fl (80.0-96.0); MONO # 0.4 10^3/uL (0.0-0.8); MONO % 3.3 % (2.0-8.0); NEUTROPHILS # 11.2 10^3/uL (1.5-8.5); NEUTROPHILS % 90.2 % (36.0-66.0); PLATELET COUNT, AUTOMATED 257 10^3/uL (150-450); WHITE BLOOD COUNT 12.4 10^3/uL (4.0-10.0)
[2024-07-23 02:29] LABS: LIPASE 29 U/L (12-53)
[2024-07-23 02:42] LABS: HCG, SERUM QUALITATIVE NEGATIVE (NEGATIVE)
[2024-07-23 03:05] LABS: ALBUMIN 3.3 G/DL (3.2-5.2); ALKALINE PHOSPHATASE 65 U/L (35-104); ALT/SGPT 65 U/L (7.0-40); AST/SGOT 22 U/L (<34); BILIRUBIN,DIRECT 0.2 MG/DL (<0.4); BILIRUBIN,TOTAL 0.4 MG/DL (0.3-1.2); BLOOD UREA NITROGEN 13 MG/DL (9-23); CALCIUM LEVEL 9.2 MG/DL (8.5-10.1); CARBON DIOXIDE LEVEL 27 MMOL/L (20-31); CHLORIDE LEVEL 104 MMOL/L (98-107); CREATININE FOR GFR 0.48 MG/DL (0.55-1.30); GLOMERULAR FILTRATION RATE > 90.0 (>60); GLUCOSE, FASTING 152 MG/DL (60-100); POTASSIUM SERUM 4.3 MMOL/L (3.5-5.1); SODIUM LEVEL 140 MMOL/L (136-145); TOTAL PROTEIN 6.4 G/DL (5.7-8.2)
[2024-07-23 06:08] LABS: BASO % 0.1 % (0.0-1.0); EOS # 0.1 10^3/uL (0.0-0.5); EOS % 0.9 % (0.0-3.0); HEMATOCRIT 35.5 % (36.0-47.0); LYMPH # 1.1 10^3/uL (1.5-5.0); LYMPH % 8.5 % (24.0-44.0); MEAN CORPUSCULAR HEMOGLOBIN 22.7 pg (27.0-33.0); MEAN CORPUSCULAR HGB CONC 28.2 g/dl (32.0-36.5); MEAN CORPUSCULAR VOLUME 80.7 fl (80.0-96.0); MONO # 0.5 10^3/uL (0.0-0.8); MONO % 3.6 % (2.0-8.0); NEUTROPHILS # 10.7 10^3/uL (1.5-8.5); NEUTROPHILS % 86.6 % (36.0-66.0); PLATELET COUNT, AUTOMATED 263 10^3/uL (150-450); WHITE BLOOD COUNT 12.4 10^3/uL (4.0-10.0)
[2024-07-23] MEDS ORDERED: ISOVUE-370 76% 100ML VIAL As Ordered ONE (07:27)
[2024-07-23 07:40] LABS: CK-MB VALUE MASS < 1.0 NG/ML (<3.6)
[2024-07-23 07:42] LABS: CPK CREATINE PHOSPHOKINASE 27 U/L (34-145)
[2024-07-23] MEDS: methylPREDNISolone 125MG 2ML VIAL IV ONE (08:25)
[2024-07-23] MEDS: diphenhydrAMINE 50MG/ML VIAL IV ONE (08:25)
[2024-07-23 08:43] LABS: INR 1.01; PARTIAL THROMBOPLASTIN TIME 23.8 SECONDS (24.8-34.2); PROTHROMBIN TIME 13.6 SECONDS (12.5-14.5)
[2024-07-23 08:47] LABS: CK-MB VALUE MASS < 1.0 NG/ML (<3.6)
[2024-07-23 08:50] LABS: CPK CREATINE PHOSPHOKINASE 27 U/L (34-145)
[2024-07-23] MEDS ORDERED: PROM12.56 PO (09:07)
[2024-07-23] MEDS ORDERED: VENTAER INH (09:07)
[2024-07-23] MEDS ORDERED: INSU100V6 SQ (09:07)
[2024-07-23] MEDS ORDERED: MIRA3350 PO (09:07)
[2024-07-23] MEDS ORDERED: HYDR1CAP25 PO (09:07)
[2024-07-23] MEDS ORDERED: LEVO300T21 PO (09:07)
[2024-07-23] MEDS ORDERED: CYCL10TA20 PO (09:07)
[2024-07-23] MEDS ORDERED: OXYC-517 PO (09:07)
[2024-07-23] MEDS ORDERED: OMEP1CAP73 PO (09:07)
[2024-07-23] MEDS ORDERED: PRED5TA PO (09:07)
[2024-07-23] MEDS ORDERED: PRED20TA PO (09:07)
[2024-07-23] MEDS ORDERED: XARE20TA PO (09:07)
[2024-07-23] MEDS ORDERED: XARE15TA PO (09:07)
[2024-07-23] MEDS ORDERED: HUMA100I5 SC (09:10)
[2024-07-23] MEDS ORDERED: HOME MED LIST COMPLETE! XX SCH (09:10)
[2024-07-23] MEDS ORDERED: INVE1.31 IM (10:35)
[2024-07-23] MEDS: ONDANSETRON 4MG 2ML VIAL IV ONE (10:54)
[2024-07-23] MEDS: MORPHINE 4 MG/ML 1ML VIAL IV ONE (11:09)
[2024-07-23] MEDS ORDERED: oxyCODONE 5MG TAB PO PRN (12:20)
[2024-07-23] MEDS ORDERED: MOM 30ML SUSPENSION UDC PO PRN (12:20)
[2024-07-23] MEDS ORDERED: ALBUTEROL 90 MCG/ACT 8GM HFA INHALER INH PRN (12:20)
[2024-07-23] MEDS ORDERED: ONDANSETRON 4MG ORAL DISINTEGRATING TAB PO PRN (12:45)
[2024-07-23 12:50] LABS: KETONE, URINE AUTO RFX NEGATIVE (NEGATIVE); LEUKOCYTE ESTERASE UR AUTO RFX TRACE (NEGATIVE); MUCUS, URINE RFX SMALL (NEGATIVE); NITRITE, URINE AUTO RFX NEGATIVE (NEGATIVE); RBC, URINE AUTO RFX TNTC /HPF (0-3); SQUAM EPITHELIAL CELL UR AURFX 0 /HPF (0-6); WBC, URINE AUTO RFX 10 /HPF (0-3)
[2024-07-23] MEDS ORDERED: GLUCAGON INJ 1MG VIAL SC PRN (12:50)
[2024-07-23] MEDS ORDERED: GLUCOSE 4 GM CHEW PO PRN (12:50)
[2024-07-23] MEDS ORDERED: DEXTROSE 50% 50ML SYRINGE IV PRN (12:50)
[2024-07-23] MEDS: PANTOPRAZOLE 40MG VIAL IV SCH (13:01)
[2024-07-23 14:34] LABS: HEMATOCRIT 35.8 % (36.0-47.0); HEMOGLOBIN 10.2 g/dl (12.0-15.5); MEAN CORPUSCULAR HEMOGLOBIN 22.9 pg (27.0-33.0); MEAN CORPUSCULAR HGB CONC 28.5 g/dl (32.0-36.5); MEAN CORPUSCULAR VOLUME 80.4 fl (80.0-96.0); PLATELET COUNT, AUTOMATED 247 10^3/uL (150-450); RED BLOOD COUNT 4.45 10^6/uL (4.00-5.40); WHITE BLOOD COUNT 13.4 10^3/uL (4.0-10.0)
[2024-07-23 14:50] VITALS: BP 136/75; TEMP 97.5; O2SAT 95
[2024-07-23] MEDS ORDERED: LEVO125T41 PO (15:14)
[2024-07-23] MEDS ORDERED: PILL CUTTER 1 EACH XX ONE (15:42)
[2024-07-23] MEDS: predniSONE 5 MG TAB PO SCH (15:48)
[2024-07-23] MEDS: levETIRAcetam 250MG TABLET (KEPPRA) PO SCH ×2 (15:48→23:48)
[2024-07-23] MEDS: LEVOTHYROXINE 125MCG TABLET (0.125MG) PO SCH (15:48)
[2024-07-23] MEDS: PROMETHAZINE 25 MG TAB PO PRN (15:49)
[2024-07-23 16:00] LABS: THYROID STIMULATING HORMONE 7.494 uIU/ML (0.55-4.78)
[2024-07-23 16:46] LABS: FREE T4 1.23 NG/DL (0.89-1.76)
[2024-07-23] MEDS ORDERED: INSULIN LISPRO (NovoLOG) PER UNIT SC SCH ×2 (17:30→21:00)
[2024-07-23] MEDS: INSULIN LISPRO (NovoLOG) PER UNIT SC SCH ×2 (18:07→21:00)
[2024-07-23 19:30] VITALS: BP 114/67; TEMP 97.5; O2SAT 95
[2024-07-23] MEDS: DOCUSATE SODIUM 100MG CAPSULE PO SCH (21:00)
[2024-07-23] MEDS: diphenhydrAMINE 50MG CAP PO ONE (21:00)
[2024-07-23] MEDS: CYCLOBENZAPRINE 10MG TABLET PO PRN (21:08)
[2024-07-23 22:42] VITALS: O2SAT 86
[2024-07-23 22:43] VITALS: O2SAT 94
[2024-07-23 22:44] LABS: HEMATOCRIT 35.7 % (36.0-47.0); HEMOGLOBIN 10.3 g/dl (12.0-15.5); MEAN CORPUSCULAR HEMOGLOBIN 23.5 pg (27.0-33.0); MEAN CORPUSCULAR HGB CONC 28.9 g/dl (32.0-36.5); MEAN CORPUSCULAR VOLUME 81.3 fl (80.0-96.0); PLATELET COUNT, AUTOMATED 257 10^3/uL (150-450); RED BLOOD COUNT 4.39 10^6/uL (4.00-5.40); WHITE BLOOD COUNT 13.6 10^3/uL (4.0-10.0)
[2024-07-23 23:50] VITALS: O2SAT 88
[2024-07-23 23:51] VITALS: O2SAT 94
[2024-07-24] VITALS (7 sets, daily range): BP systolic 112–133; BP diastolic 64–79; TEMP 97.7; O2SAT 86–98
[2024-07-24] MEDS ORDERED: NITROGLYCERIN 0.4MG SUBL TABLET SL PRN (01:40)
[2024-07-24 03:11] LABS: VENOUS HCO3 26.6 MMOL/L (23.0-27.0); VENOUS O2 SATURATION 98.5 % (60.0-80.0); VENOUS PARTIAL PRESSURE CO2 41.7 mmHg (38.0-50.0); VENOUS PARTIAL PRESSURE O2 128.4 mmHg (30.0-50.0); VENOUS PH 7.423 UNITS (7.330-7.430); VENOUS STANDARD HCO3 26.3 MMOL/L; VENOUS TOTAL CO2 27.9 MMOL/L (24.0-28.0)
[2024-07-24 03:18] LABS: HEMATOCRIT 34.1 % (36.0-47.0); HEMOGLOBIN 9.8 g/dl (12.0-15.5); MEAN CORPUSCULAR HGB CONC 28.7 g/dl (32.0-36.5); PLATELET COUNT, AUTOMATED 254 10^3/uL (150-450); RED BLOOD COUNT 4.26 10^6/uL (4.00-5.40); WHITE BLOOD COUNT 12.8 10^3/uL (4.0-10.0)
[2024-07-24 03:48] LABS: BLOOD UREA NITROGEN 9 MG/DL (9-23); CARBON DIOXIDE LEVEL 29 MMOL/L (20-31); CHLORIDE LEVEL 107 MMOL/L (98-107); CREATININE FOR GFR 0.46 MG/DL (0.55-1.30); GLOMERULAR FILTRATION RATE > 90.0 (>60); GLUCOSE, FASTING 147 MG/DL (60-100); POTASSIUM SERUM 4.3 MMOL/L (3.5-5.1); SODIUM LEVEL 143 MMOL/L (136-145)
[2024-07-24] MEDS ORDERED: ONDA-282 PO (14:31)
[2024-07-24] MEDS ORDERED: PANT40TA29 PO ×2 (14:31→14:39)
[2024-07-24 15:40] LABS: HEMATOCRIT 37.4 % (36.0-47.0); HEMOGLOBIN 10.7 g/dl (12.0-15.5); MEAN CORPUSCULAR HEMOGLOBIN 23.2 pg (27.0-33.0); MEAN CORPUSCULAR HGB CONC 28.6 g/dl (32.0-36.5); MEAN CORPUSCULAR VOLUME 81.1 fl (80.0-96.0); PLATELET COUNT, AUTOMATED 246 10^3/uL (150-450); RED BLOOD COUNT 4.61 10^6/uL (4.00-5.40); WHITE BLOOD COUNT 14.2 10^3/uL (4.0-10.0)
[2024-07-24] MEDS ORDERED: PROM50TA4 PO (16:37)
[2024-07-24] MEDS ORDERED: OXYC-517 PO (16:43)
[2024-07-24] MEDS ORDERED: VENTAER INH (18:18)
[2024-07-24] MEDS ORDERED: SYNT125T PO (18:35)
== END 2024-07-24 19:22 | disposition home or self-care (01) | DRG 241 ==
LOC: M ED 21:37 → M ED INP 07-23 12:16 → M MSPAV 07-23 14:53
PROVIDERS: ADMIT Student in an Organized Health Care Education/Training Program; ATTEND Student in an Organized Health Care Education/Training Program
DX: K29.71 Gastritis, unspecified, with bleeding (principal); I31.39 Other pericardial effusion (noninflammatory); I27.20 Pulmonary hypertension, unspecified; D50.9 Iron deficiency anemia, unspecified; E11.9 Type 2 diabetes mellitus without complications; K90.0 Celiac disease; E03.9 Hypothyroidism, unspecified; E66.813 Obesity, class 3; G47.33 Obstructive sleep apnea (adult) (pediatric); G40.909 Epilepsy, unspecified, not intractable, without status epilepticus; R11.2 Nausea with vomiting, unspecified; F41.9 Anxiety disorder, unspecified; Z79.890 Hormone replacement therapy; Z79.52 Long term (current) use of systemic steroids; Z79.4 Long term (current) use of insulin; Z79.899 Other long term (current) drug therapy; Z88.0 Allergy status to penicillin; Z88.2 Allergy status to sulfonamides; Z88.8 Allergy status to other drugs, medicaments and biological substances; Z91.040 Latex allergy status; Z91.041 Radiographic dye allergy status; Z91.018 Allergy to other foods; Z86.718 Personal history of other venous thrombosis and embolism; Z90.49 Acquired absence of other specified parts of digestive tract; Z59.01 Sheltered homelessness

== ENCOUNTER 2024-08-02 19:34 | Emergency (ER) | payer MEDICAID, OTHER ==
[~2024-08-02] VITALS: Ht 175.3 cm; Wt 145.4 kg
[~2024-08-02 19:34] MED LIST changes: +CYCL10TA20 PO; +HUMA100I5 SC; +HYDR1CAP25 PO; +INSU100V6 SQ; +INVE1.31 IM; +LEVO125T41 PO; +LEVO300T21 PO; +MIRA3350 PO; +OMEP1CAP73 PO; +OXYC-517 PO; +PANT40TA29 PO; +PROM12.56 PO; +PROM50TA4 PO; +SYNT125T PO; +VENTAER INH
[2024-08-02 21:17] LABS: BASO % 0.1 % (0.0-1.0); EOS # 0.1 10^3/uL (0.0-0.5); EOS % 0.9 % (0.0-3.0); HEMATOCRIT 28.4 % (36.0-47.0); HEMOGLOBIN 8.2 g/dl (12.0-15.5); LYMPH # 1.2 10^3/uL (1.5-5.0); MEAN CORPUSCULAR HEMOGLOBIN 23.6 pg (27.0-33.0); MEAN CORPUSCULAR HGB CONC 28.9 g/dl (32.0-36.5); MEAN CORPUSCULAR VOLUME 81.8 fl (80.0-96.0); MONO # 0.6 10^3/uL (0.0-0.8); NEUTROPHILS # 7.1 10^3/uL (1.5-8.5); NEUTROPHILS % 78.3 % (36.0-66.0); PLATELET COUNT, AUTOMATED 239 10^3/uL (150-450); RED BLOOD COUNT 3.47 10^6/uL (4.00-5.40)
[2024-08-02 21:29] LABS: INR 1.2; PROTHROMBIN TIME 15.5 SECONDS (12.5-14.5)
[2024-08-02 21:49] LABS: CK-MB VALUE MASS < 1.0 NG/ML (<3.6); LIPASE 29 U/L (12-53)
[2024-08-02 21:50] LABS: CPK CREATINE PHOSPHOKINASE 30 U/L (34-145); MB/CK RELATIVE INDEX 3.33 (< OR =4)
[2024-08-02 21:51] LABS: ALKALINE PHOSPHATASE 69 U/L (35-104); ALT/SGPT 60 U/L (7.0-40); AST/SGOT 27 U/L (<34); BILIRUBIN,DIRECT 0.2 MG/DL (<0.4); BILIRUBIN,TOTAL 0.4 MG/DL (0.3-1.2); BLOOD UREA NITROGEN 12 MG/DL (9-23); CALCIUM LEVEL 8.7 MG/DL (8.5-10.1); CARBON DIOXIDE LEVEL 30 MMOL/L (20-31); CHLORIDE LEVEL 105 MMOL/L (98-107); GLOMERULAR FILTRATION RATE > 90.0 (>60); GLUCOSE, FASTING 120 MG/DL (60-100); POTASSIUM SERUM 4.1 MMOL/L (3.5-5.1); SODIUM LEVEL 142 MMOL/L (136-145); TOTAL PROTEIN 5.9 G/DL (5.7-8.2)
[2024-08-03] MEDS ORDERED: ISOVUE-370 76% 100ML VIAL As Ordered ONE (00:35)
[2024-08-03] MEDS: methylPREDNISolone 125MG 2ML VIAL IV ONE (00:51)
[2024-08-03] MEDS: FAMOTIDINE 20MG/2ML VIAL IVP ONE (00:51)
[2024-08-03] MEDS: diphenhydrAMINE 50MG/ML VIAL IV ONE (00:51)
[2024-08-03 02:00] VITALS: BP 115/82
[2024-08-03 02:30] LABS: CK-MB VALUE MASS < 1.0 NG/ML (<3.6); CPK CREATINE PHOSPHOKINASE 21 U/L (34-145); MB/CK RELATIVE INDEX 4.76 (< OR =4)
[2024-08-03 03:04] VITALS: TEMP 98.9; O2SAT 76
[2024-08-07] MEDS ORDERED: LEVO125T4 PO (22:08)
[2024-08-07] MEDS ORDERED: PROM25TA12 PO (22:08)
== END 2024-08-03 03:16 | disposition home or self-care (01) ==
LOC: M ED 19:34 → EDBD 19:34 → M ED 08-03 03:16
DX: I47.10 Supraventricular tachycardia, unspecified (principal); Z86.718 Personal history of other venous thrombosis and embolism; Z79.01 Long term (current) use of anticoagulants; Z79.4 Long term (current) use of insulin; Z79.899 Other long term (current) drug therapy; Z88.0 Allergy status to penicillin; Z88.6 Allergy status to analgesic agent; Z88.2 Allergy status to sulfonamides; Z91.041 Radiographic dye allergy status; Z91.013 Allergy to seafood; Z91.040 Latex allergy status; Z91.02 Food additives allergy status
CPT/HCPCS: 71045; 71275; 80048; 80076; 82550; 82553; 83690; 84484; 85025; 85610; 93005; 93041; 93971; 96374; 96375; 99284; J1200; J1308; J2919; Q9967

== ENCOUNTER 2024-08-03 21:31 | Emergency (ER) | payer OTHER ==
[~2024-08-03] VITALS: Ht 175.3 cm; Wt 145.4 kg
[2024-08-04 02:37] VITALS: BP 165/73; TEMP 97.4; O2SAT 98
[2024-08-04 02:51] LABS: BASO % 0.2 % (0.0-1.0); HEMATOCRIT 28.8 % (36.0-47.0); HEMOGLOBIN 8.1 g/dl (12.0-15.5); LYMPH # 1.1 10^3/uL (1.5-5.0); LYMPH % 8.5 % (24.0-44.0); MEAN CORPUSCULAR HEMOGLOBIN 23.5 pg (27.0-33.0); MEAN CORPUSCULAR HGB CONC 28.1 g/dl (32.0-36.5); MEAN CORPUSCULAR VOLUME 83.7 fl (80.0-96.0); MONO # 0.9 10^3/uL (0.0-0.8); MONO % 7.1 % (2.0-8.0); NEUTROPHILS # 10.2 10^3/uL (1.5-8.5); NEUTROPHILS % 83.2 % (36.0-66.0); PLATELET COUNT, AUTOMATED 294 10^3/uL (150-450); RED BLOOD COUNT 3.44 10^6/uL (4.00-5.40); WHITE BLOOD COUNT 12.3 10^3/uL (4.0-10.0)
[2024-08-04 03:03] LABS: INR 0.96; PROTHROMBIN TIME 13.1 SECONDS (12.5-14.5)
[2024-08-04 03:18] LABS: BLOOD UREA NITROGEN 13 MG/DL (9-23); CALCIUM LEVEL 8.9 MG/DL (8.5-10.1); CARBON DIOXIDE LEVEL 26 MMOL/L (20-31); CHLORIDE LEVEL 105 MMOL/L (98-107); CK-MB VALUE MASS < 1.0 NG/ML (<3.6); CPK CREATINE PHOSPHOKINASE 24 U/L (34-145); CREATININE FOR GFR 0.65 MG/DL (0.55-1.30); GLOMERULAR FILTRATION RATE > 90.0 (>60); GLUCOSE, FASTING 202 MG/DL (60-100); MB/CK RELATIVE INDEX 4.16 (< OR =4); POTASSIUM SERUM 3.7 MMOL/L (3.5-5.1); SODIUM LEVEL 142 MMOL/L (136-145)
[2024-08-04 05:37] LABS: CK-MB VALUE MASS < 1.0 NG/ML (<3.6)
[2024-08-04 05:45] LABS: CPK CREATINE PHOSPHOKINASE 25 U/L (34-145)
[2024-08-07] MEDS ORDERED: LEVO125T4 PO (22:08)
[2024-08-07] MEDS ORDERED: PROM25TA12 PO (22:08)
== END 2024-08-04 07:30 | disposition left against medical advice (07) ==
LOC: EDBD 21:31 → M ED 21:31
DX: Z53.21 Procedure and treatment not carried out due to patient leaving prior to being seen by health care provider (principal)

== ENCOUNTER 2024-08-06 20:28 | Emergency (ER) | payer OTHER ==
[~2024-08-06] VITALS: Ht 175.3 cm; Wt 183.0 kg
[2024-08-06] MEDS ORDERED: diphenhydrAMINE 50MG/ML VIAL IV ONE (21:00)
[2024-08-06] MEDS: diphenhydrAMINE 50MG/ML VIAL IM ONE (21:10)
[2024-08-06] MEDS: METOCLOPRAMIDE INJ 10MG/2ML VIAL IM ONE (21:10)
[2024-08-06] MEDS ORDERED: METOCLOPRAMIDE INJ 10MG/2ML VIAL IV ONE (22:00)
[2024-08-06 22:08] LABS: BASO % 0.2 % (0.0-1.0); EOS # 0.1 10^3/uL (0.0-0.5); EOS % 0.5 % (0.0-3.0); HEMATOCRIT 28.7 % (36.0-47.0); HEMOGLOBIN 8.2 g/dl (12.0-15.5); LYMPH # 1.5 10^3/uL (1.5-5.0); LYMPH % 14.4 % (24.0-44.0); MEAN CORPUSCULAR HEMOGLOBIN 23.5 pg (27.0-33.0); MEAN CORPUSCULAR HGB CONC 28.6 g/dl (32.0-36.5); MEAN CORPUSCULAR VOLUME 82.2 fl (80.0-96.0); MONO # 0.4 10^3/uL (0.0-0.8); MONO % 4.3 % (2.0-8.0); NEUTROPHILS # 8.2 10^3/uL (1.5-8.5); NEUTROPHILS % 78.9 % (36.0-66.0); PLATELET COUNT, AUTOMATED 320 10^3/uL (150-450); RED BLOOD COUNT 3.49 10^6/uL (4.00-5.40); WHITE BLOOD COUNT 10.3 10^3/uL (4.0-10.0)
[2024-08-06 22:33] LABS: FREE T4 1.03 NG/DL (0.89-1.76)
[2024-08-06 22:34] LABS: THYROID STIMULATING HORMONE 10.563 uIU/ML (0.55-4.78)
[2024-08-06 22:36] LABS: ALKALINE PHOSPHATASE 70 U/L (35-104); ALT/SGPT 31 U/L (7.0-40); AST/SGOT < 8 U/L (<34); BILIRUBIN,TOTAL 0.4 MG/DL (0.3-1.2); BLOOD UREA NITROGEN 10 MG/DL (9-23); CALCIUM LEVEL 8.7 MG/DL (8.5-10.1); CARBON DIOXIDE LEVEL 32 MMOL/L (20-31); CHLORIDE LEVEL 104 MMOL/L (98-107); CREATININE FOR GFR 0.73 MG/DL (0.55-1.30); GLOMERULAR FILTRATION RATE > 90.0 (>60); GLUCOSE, FASTING 121 MG/DL (60-100); MAGNESIUM LEVEL 1.9 MG/DL (1.8-2.4); SODIUM LEVEL 141 MMOL/L (136-145); TOTAL PROTEIN 5.8 G/DL (5.7-8.2)
[2024-08-06 23:01] VITALS: BP 117/59; TEMP 98.6; O2SAT 98
[2024-08-07] MEDS ORDERED: PROM25TA12 PO (22:08)
[2024-08-07] MEDS ORDERED: LEVO125T4 PO (22:08)
== END 2024-08-06 23:04 | disposition home or self-care (01) ==
LOC: EDBD 20:28 → M ED 20:28
DX: R55 Syncope and collapse (principal); R51.9 Headache, unspecified; W19.XXXA Unspecified fall, initial encounter; Y92.22 Religious institution as the place of occurrence of the external cause; Y93.9 Activity, unspecified; Y99.9 Unspecified external cause status; E11.9 Type 2 diabetes mellitus without complications; R56.9 Unspecified convulsions; G47.33 Obstructive sleep apnea (adult) (pediatric); Z86.718 Personal history of other venous thrombosis and embolism; Z79.4 Long term (current) use of insulin; Z79.01 Long term (current) use of anticoagulants; Z79.899 Other long term (current) drug therapy; Z88.0 Allergy status to penicillin; Z88.6 Allergy status to analgesic agent; Z88.2 Allergy status to sulfonamides; Z91.041 Radiographic dye allergy status; Z91.040 Latex allergy status; Z91.89 Other specified personal risk factors, not elsewhere classified; Z91.018 Allergy to other foods

== ENCOUNTER 2024-09-15 20:00 | Emergency (ER) | payer OTHER ==
[~2024-09-15] VITALS: Ht 177.8 cm; Wt 127.3 kg
[~2024-09-15 20:00] MED LIST changes: +ABIL10TA9 PO; +ABIL1TAB11 PO; +CYCL-707 PO; +FURO40TA2 PO; +HYDR-3364 PO; +HYDR50TA70 PO; +INSU100I24 SUBQ; +LATU20TA PO; +LEVO125C2 PO; +LEVO125T4 PO; +MIRT-10 PO; +MIRT-88 PO; +MIRT1TAB PO; +OMEP-173 PO; +PROM25TA12 PO; +SUCR1TA PO; +TRAZ-186 PO; +TRAZ-252 PO
[2024-09-16 01:11] LABS: BASO % 0.2 % (0.0-1.0); EOS # 0.1 10^3/uL (0.0-0.5); EOS % 0.5 % (0.0-3.0); HEMATOCRIT 32.9 % (36.0-47.0); HEMOGLOBIN 9.4 g/dl (12.0-15.5); LYMPH # 1.7 10^3/uL (1.5-5.0); LYMPH % 13.9 % (24.0-44.0); MEAN CORPUSCULAR HEMOGLOBIN 24.6 pg (27.0-33.0); MEAN CORPUSCULAR HGB CONC 28.6 g/dl (32.0-36.5); MEAN CORPUSCULAR VOLUME 86.1 fl (80.0-96.0); MONO # 0.9 10^3/uL (0.0-0.8); MONO % 7.7 % (2.0-8.0); NEUTROPHILS # 9.4 10^3/uL (1.5-8.5); NEUTROPHILS % 77.3 % (36.0-66.0); PLATELET COUNT, AUTOMATED 358 10^3/uL (150-450); RED BLOOD COUNT 3.82 10^6/uL (4.00-5.40); WHITE BLOOD COUNT 12.1 10^3/uL (4.0-10.0)
[2024-09-16 01:33] LABS: CK-MB VALUE MASS < 1.0 NG/ML (<3.6)
[2024-09-16 01:36] LABS: BLOOD UREA NITROGEN 14 MG/DL (9-23); CALCIUM LEVEL 8.8 MG/DL (8.5-10.1); CARBON DIOXIDE LEVEL 26 MMOL/L (20-31); CHLORIDE LEVEL 108 MMOL/L (98-107); CPK CREATINE PHOSPHOKINASE 74 U/L (34-145); CREATININE FOR GFR 0.83 MG/DL (0.55-1.30); GLOMERULAR FILTRATION RATE > 90.0 (>60); GLUCOSE, FASTING 126 MG/DL (60-100); SODIUM LEVEL 147 MMOL/L (136-145)
[2024-09-16 05:30] VITALS: BP 179/84; TEMP 98
[2024-09-16] MEDS: levETIRAcetam 250 MG TABLET PO ONE (05:40)
[2024-09-16] MEDS ORDERED: KEPP10002 PO (05:42)
[2024-09-16 05:45] VITALS: O2SAT 98
== END 2024-09-16 06:27 | disposition home or self-care (01) ==
LOC: M ED 20:00
DX: M79.662 Pain in left lower leg (principal); W19.XXXA Unspecified fall, initial encounter; Y92.9 Unspecified place or not applicable; Y93.9 Activity, unspecified; Y99.9 Unspecified external cause status; R03.0 Elevated blood-pressure reading, without diagnosis of hypertension; Z96.7 Presence of other bone and tendon implants; R56.9 Unspecified convulsions; Z86.79 Personal history of other diseases of the circulatory system; Z86.718 Personal history of other venous thrombosis and embolism; G47.30 Sleep apnea, unspecified; Z87.19 Personal history of other diseases of the digestive system; E11.9 Type 2 diabetes mellitus without complications; E03.9 Hypothyroidism, unspecified; C95.90 Leukemia, unspecified not having achieved remission; Z79.4 Long term (current) use of insulin; Z91.041 Radiographic dye allergy status; Z91.013 Allergy to seafood; Z91.010 Allergy to peanuts; Z91.02 Food additives allergy status; Z91.040 Latex allergy status; Z88.0 Allergy status to penicillin; Z88.8 Allergy status to other drugs, medicaments and biological substances; Z88.1 Allergy status to other antibiotic agents; Z88.5 Allergy status to narcotic agent; Z88.2 Allergy status to sulfonamides

== ENCOUNTER 2024-09-17 19:33 | Emergency (ER) | payer OTHER ==
[~2024-09-17] VITALS: Ht 175.3 cm; Wt 180.0 kg
[2024-09-17] MEDS: diphenhydrAMINE 50 MG/ML VIAL IV STA (22:10)
[2024-09-17] MEDS: FAMOTIDINE IV BAG 20 MG in IV 1 EA IV ONE (22:14)
[2024-09-17] MEDS: dexAMETHasone 4 MG/ML 1 ML VIAL PO ONE (22:16)
[2024-09-18] MEDS ORDERED: BENA25CA4 PO (00:58)
[2024-09-18] MEDS ORDERED: PEPC1TAB5 PO (00:58)
[2024-09-18] MEDS ORDERED: EPIP0.3I2 SC (00:58)
[2024-09-18 01:20] VITALS: BP 126/60; TEMP 98.2; O2SAT 97
[2024-09-19] MEDS ORDERED: OXYC-517 PO (05:50)
== END 2024-09-18 01:24 | disposition home or self-care (01) ==
LOC: M ED 19:33
DX: T78.02XA Anaphylactic reaction due to shellfish (crustaceans), initial encounter (principal); Y92.9 Unspecified place or not applicable; Y93.9 Activity, unspecified; E11.9 Type 2 diabetes mellitus without complications; D64.9 Anemia, unspecified; Z85.6 Personal history of leukemia; Z79.01 Long term (current) use of anticoagulants; Z79.899 Other long term (current) drug therapy; Z88.0 Allergy status to penicillin; Z88.2 Allergy status to sulfonamides; Z88.6 Allergy status to analgesic agent; Z88.8 Allergy status to other drugs, medicaments and biological substances; Z88.1 Allergy status to other antibiotic agents; Z88.5 Allergy status to narcotic agent; Z91.02 Food additives allergy status; Z91.041 Radiographic dye allergy status; Z91.013 Allergy to seafood; Z91.040 Latex allergy status; Z91.010 Allergy to peanuts
CPT/HCPCS: 96374; 96375; 99284; J1100; J1200; J1308

== ENCOUNTER 2024-09-18 22:11 | Emergency (ER) | payer OTHER ==
[~2024-09-18] VITALS: Ht 175.3 cm; Wt 127.3 kg
[~2024-09-18 22:11] MED LIST changes: +BENA25CA4 PO; +EPIP0.3I2 SC; +PEPC1TAB5 PO
[2024-09-19] MEDS: MORPHINE 2 MG/ML 1 ML VIAL IM ONE (03:26)
[2024-09-19 03:52] LABS: BASO # 0.0 10^3/uL (0.0-0.2); BASO % 0.2 % (0.0-1.0); EOS # 0.0 10^3/uL (0.0-0.5); EOS % 0.2 % (0.0-3.0); LYMPH # 2.2 10^3/uL (1.5-5.0); LYMPH % 18.2 % (24.0-44.0); MONO # 0.8 10^3/uL (0.0-0.8); MONO % 6.9 % (2.0-8.0); NEUTROPHILS # 8.9 10^3/uL (1.5-8.5); NEUTROPHILS % 74.2 % (36.0-66.0); PLATELET COUNT, AUTOMATED 307 10^3/uL (150-450)
[2024-09-19 04:08] LABS: INR 1.22
[2024-09-19 04:22] LABS: CALCIUM LEVEL 8.8 MG/DL (8.5-10.1); CARBON DIOXIDE LEVEL 31 MMOL/L (20-31); CHLORIDE LEVEL 101 MMOL/L (98-107); CREATININE FOR GFR 0.79 MG/DL (0.55-1.30); GLOMERULAR FILTRATION RATE > 90.0 (>60); POTASSIUM SERUM 3.8 MMOL/L (3.5-5.1); SODIUM LEVEL 144 MMOL/L (136-145)
[2024-09-19 05:08] VITALS: BP 142/76; TEMP 97.2; O2SAT 97
[2024-09-19] MEDS ORDERED: OXYC-517 PO (05:50)
== END 2024-09-19 05:56 | disposition home or self-care (01) ==
LOC: M ED 22:11
DX: I82.612 Acute embolism and thrombosis of superficial veins of left upper extremity (principal); R07.89 Other chest pain; S09.90XA Unspecified injury of head, initial encounter; W10.9XXA Fall (on) (from) unspecified stairs and steps, initial encounter; Y92.9 Unspecified place or not applicable; Y93.9 Activity, unspecified; Y99.9 Unspecified external cause status; I50.9 Heart failure, unspecified; E07.9 Disorder of thyroid, unspecified; K21.9 Gastro-esophageal reflux disease without esophagitis; G40.909 Epilepsy, unspecified, not intractable, without status epilepticus; F41.9 Anxiety disorder, unspecified; E11.9 Type 2 diabetes mellitus without complications; Z95.9 Presence of cardiac and vascular implant and graft, unspecified; Z79.4 Long term (current) use of insulin; Z79.01 Long term (current) use of anticoagulants; Z79.899 Other long term (current) drug therapy; Z88.0 Allergy status to penicillin; Z88.6 Allergy status to analgesic agent; Z88.8 Allergy status to other drugs, medicaments and biological substances; Z88.5 Allergy status to narcotic agent; Z88.2 Allergy status to sulfonamides; Z88.1 Allergy status to other antibiotic agents; Z91.013 Allergy to seafood; Z91.041 Radiographic dye allergy status; Z91.040 Latex allergy status; Z91.010 Allergy to peanuts; Z91.02 Food additives allergy status

== ENCOUNTER 2024-09-21 03:36 | Emergency (ER) | payer OTHER ==
[~2024-09-21] VITALS: Ht 162.6 cm; Wt 180.0 kg
[2024-09-21 06:56] LABS: SOFIA COVID ANTIGEN NEGATIVE (NEGATIVE)
[2024-09-21] MEDS: ALBUTEROL SULFATE 2.5 MG/0.5 ML INH CONCENTRATE NEB SOLN NEB ONE (07:03)
[2024-09-21 07:40] LABS: PLATELET COUNT, AUTOMATED 275 10^3/uL (150-450)
[2024-09-21 07:56] LABS: ALT/SGPT 15 U/L (7.0-40); AST/SGOT 12 U/L (<34); CALCIUM LEVEL 8.5 MG/DL (8.5-10.1); CARBON DIOXIDE LEVEL 30 MMOL/L (20-31); CHLORIDE LEVEL 104 MMOL/L (98-107); CK-MB VALUE MASS < 1.0 NG/ML (<3.6); CPK CREATINE PHOSPHOKINASE 48 U/L (34-145); CREATININE FOR GFR 0.68 MG/DL (0.55-1.30); GLOMERULAR FILTRATION RATE > 90.0 (>60); POTASSIUM SERUM 4.2 MMOL/L (3.5-5.1); SODIUM LEVEL 143 MMOL/L (136-145)
[2024-09-21 09:32] VITALS: BP 138/82; TEMP 97.3; O2SAT 97
== END 2024-09-21 09:40 | disposition home or self-care (01) ==
LOC: M ED 03:36
DX: R06.02 Shortness of breath (principal); R53.83 Other fatigue; R19.7 Diarrhea, unspecified; R91.8 Other nonspecific abnormal finding of lung field; Z88.0 Allergy status to penicillin; Z88.6 Allergy status to analgesic agent; Z88.1 Allergy status to other antibiotic agents; Z88.2 Allergy status to sulfonamides; Z88.8 Allergy status to other drugs, medicaments and biological substances; Z91.041 Radiographic dye allergy status; Z91.040 Latex allergy status; Z88.5 Allergy status to narcotic agent; E11.9 Type 2 diabetes mellitus without complications; G40.909 Epilepsy, unspecified, not intractable, without status epilepticus; G47.33 Obstructive sleep apnea (adult) (pediatric)

== ENCOUNTER 2024-09-21 20:29 | Emergency (ER) | payer OTHER ==
[~2024-09-21] VITALS: Ht 175.3 cm; Wt 181.3 kg
[2024-09-22 05:42] VITALS: BP 183/84; TEMP 97.1; O2SAT 98
== END 2024-09-22 06:22 | disposition home or self-care (01) ==
LOC: EDBD 20:29 → M ED 20:29
DX: K92.0 Hematemesis (principal); W19.XXXA Unspecified fall, initial encounter; Y92.9 Unspecified place or not applicable; Y93.89 Activity, other specified; Y99.9 Unspecified external cause status; E03.9 Hypothyroidism, unspecified; Z86.718 Personal history of other venous thrombosis and embolism; F17.200 Nicotine dependence, unspecified, uncomplicated; Z88.0 Allergy status to penicillin; Z88.1 Allergy status to other antibiotic agents; Z88.5 Allergy status to narcotic agent; Z88.8 Allergy status to other drugs, medicaments and biological substances; Z91.041 Radiographic dye allergy status; Z79.899 Other long term (current) drug therapy

== ENCOUNTER 2024-09-23 03:05 | Emergency (ER) | payer OTHER ==
[~2024-09-23] VITALS: Ht 175.3 cm; Wt 182.2 kg
[2024-09-23 03:24] VITALS: TEMP 98.3
[2024-09-23 09:13] LABS: BASO # 0.0 10^3/uL (0.0-0.2); BASO % 0.2 % (0.0-1.0); EOS # 0.1 10^3/uL (0.0-0.5); EOS % 1.6 % (0.0-3.0); LYMPH # 1.2 10^3/uL (1.5-5.0); LYMPH % 13.1 % (24.0-44.0); MONO # 0.6 10^3/uL (0.0-0.8); MONO % 6.9 % (2.0-8.0); NEUTROPHILS # 7.1 10^3/uL (1.5-8.5); NEUTROPHILS % 78.0 % (36.0-66.0); PLATELET COUNT, AUTOMATED 238 10^3/uL (150-450)
[2024-09-23] MEDS: NS (Normal Saline) 0.9% 1,000 ML IV ONE (09:32)
[2024-09-23] MEDS: KETOROLAC 30 MG/ML 1 ML VIAL IV ONE (09:32)
[2024-09-23 09:47] LABS: ALT/SGPT 22 U/L (7.0-40); AST/SGOT 23 U/L (<34); CALCIUM LEVEL 8.8 MG/DL (8.5-10.1); CARBON DIOXIDE LEVEL 26 MMOL/L (20-31); CHLORIDE LEVEL 106 MMOL/L (98-107); CREATININE FOR GFR 0.59 MG/DL (0.55-1.30); GLOMERULAR FILTRATION RATE > 90.0 (>60); POTASSIUM SERUM 4.4 MMOL/L (3.5-5.1); SODIUM LEVEL 142 MMOL/L (136-145)
[2024-09-23] MEDS: MECLIZINE 25 MG TABLET PO ONE (11:56)
[2024-09-23] MEDS: ONDANSETRON 4MG 2ML VIAL IV ONE (11:56)
[2024-09-23 12:12] VITALS: BP 182/119; O2SAT 97
== END 2024-09-23 12:31 | disposition home or self-care (01) ==
LOC: EDBD 03:05 → M ED 03:05
DX: R11.10 Vomiting, unspecified (principal); R19.7 Diarrhea, unspecified; R00.0 Tachycardia, unspecified; E03.9 Hypothyroidism, unspecified; E11.9 Type 2 diabetes mellitus without complications; Z79.52 Long term (current) use of systemic steroids; Z79.899 Other long term (current) drug therapy; Z88.0 Allergy status to penicillin; Z88.1 Allergy status to other antibiotic agents; Z88.2 Allergy status to sulfonamides; Z88.5 Allergy status to narcotic agent; Z88.6 Allergy status to analgesic agent; Z88.8 Allergy status to other drugs, medicaments and biological substances; Z91.041 Radiographic dye allergy status; Z91.013 Allergy to seafood
CPT/HCPCS: 73060; 73090; 80048; 80076; 83690; 85025; 87486; 87581; 87633; 87798; 93005; 96361; 96374; 96375; 99285; J1885; J2405

== ENCOUNTER 2024-09-25 23:24 | Emergency (ER) | payer OTHER ==
[~2024-09-25] VITALS: Ht 175.3 cm; Wt 172.7 kg
[2024-09-26 07:30] LABS: BASO # 0.0 10^3/uL (0.0-0.2); BASO % 0.3 % (0.0-1.0); EOS # 0.1 10^3/uL (0.0-0.5); EOS % 1.8 % (0.0-3.0); LYMPH # 1.2 10^3/uL (1.5-5.0); LYMPH % 14.9 % (24.0-44.0); MONO # 0.7 10^3/uL (0.0-0.8); MONO % 8.4 % (2.0-8.0); NEUTROPHILS # 6.0 10^3/uL (1.5-8.5); NEUTROPHILS % 74.2 % (36.0-66.0); PLATELET COUNT, AUTOMATED 230 10^3/uL (150-450)
[2024-09-26 07:50] LABS: CALCIUM LEVEL 8.6 MG/DL (8.5-10.1); CARBON DIOXIDE LEVEL 28 MMOL/L (20-31); CHLORIDE LEVEL 104 MMOL/L (98-107); CREATININE FOR GFR 0.60 MG/DL (0.55-1.30); GLOMERULAR FILTRATION RATE > 90.0 (>60); POTASSIUM SERUM 3.8 MMOL/L (3.5-5.1); SODIUM LEVEL 142 MMOL/L (136-145)
[2024-09-26 08:30] VITALS: BP 135/73
[2024-09-26] MEDS ORDERED: VENTAER INH (08:38)
[2024-09-26 08:46] VITALS: O2SAT 95
[2024-09-26 09:09] VITALS: TEMP 96.7
== END 2024-09-26 09:16 | disposition home or self-care (01) ==
LOC: M ED 23:24
DX: R06.02 Shortness of breath (principal); E66.9 Obesity, unspecified; E11.9 Type 2 diabetes mellitus without complications; Z79.4 Long term (current) use of insulin; Z88.0 Allergy status to penicillin; Z88.1 Allergy status to other antibiotic agents; Z88.5 Allergy status to narcotic agent; Z88.2 Allergy status to sulfonamides; Z88.8 Allergy status to other drugs, medicaments and biological substances; Z91.041 Radiographic dye allergy status; Z91.040 Latex allergy status; Z91.013 Allergy to seafood; Z91.010 Allergy to peanuts; Z91.02 Food additives allergy status

== ENCOUNTER 2024-09-27 00:31 | Emergency (ER) | payer OTHER ==
[~2024-09-27] VITALS: Ht 170.2 cm; Wt 147.7 kg
[2024-09-27 09:22] VITALS: BP 138/72; TEMP 97.2; O2SAT 98
== END 2024-09-27 09:37 | disposition home or self-care (01) ==
LOC: M ED 00:31
DX: S93.402A Sprain of unspecified ligament of left ankle, initial encounter (principal); X58.XXXA Exposure to other specified factors, initial encounter; Y92.89 Other specified places as the place of occurrence of the external cause; Y93.89 Activity, other specified; Y99.9 Unspecified external cause status; E11.9 Type 2 diabetes mellitus without complications; E03.9 Hypothyroidism, unspecified; R56.9 Unspecified convulsions; G47.30 Sleep apnea, unspecified; Z87.19 Personal history of other diseases of the digestive system; Z86.718 Personal history of other venous thrombosis and embolism; C95.90 Leukemia, unspecified not having achieved remission; Z86.79 Personal history of other diseases of the circulatory system; Z79.4 Long term (current) use of insulin; Z91.041 Radiographic dye allergy status; Z91.040 Latex allergy status; Z88.0 Allergy status to penicillin; Z88.6 Allergy status to analgesic agent; Z88.8 Allergy status to other drugs, medicaments and biological substances; Z88.1 Allergy status to other antibiotic agents; Z88.5 Allergy status to narcotic agent; Z88.2 Allergy status to sulfonamides; Z91.010 Allergy to peanuts; Z91.013 Allergy to seafood

== ENCOUNTER 2024-09-28 23:22 | Emergency (ER) | payer OTHER ==
[~2024-09-28] VITALS: Ht 175.3 cm; Wt 176.1 kg
[2024-09-29 07:44] LABS: BASO # 0.0 10^3/uL (0.0-0.2); BASO % 0.3 % (0.0-1.0); EOS # 0.2 10^3/uL (0.0-0.5); EOS % 1.9 % (0.0-3.0); LYMPH # 1.1 10^3/uL (1.5-5.0); LYMPH % 14.6 % (24.0-44.0); MONO # 0.6 10^3/uL (0.0-0.8); MONO % 7.6 % (2.0-8.0); NEUTROPHILS # 5.8 10^3/uL (1.5-8.5); NEUTROPHILS % 75.3 % (36.0-66.0); PLATELET COUNT, AUTOMATED 255 10^3/uL (150-450)
[2024-09-29 08:01] LABS: CALCIUM LEVEL 8.7 MG/DL (8.5-10.1); CARBON DIOXIDE LEVEL 29 MMOL/L (20-31); CHLORIDE LEVEL 102 MMOL/L (98-107); CK-MB VALUE MASS < 1.0 NG/ML (<3.6); CPK CREATINE PHOSPHOKINASE 57 U/L (34-145); CREATININE FOR GFR 0.71 MG/DL (0.55-1.30); GLOMERULAR FILTRATION RATE > 90.0 (>60); POTASSIUM SERUM 4.4 MMOL/L (3.5-5.1); SODIUM LEVEL 141 MMOL/L (136-145)
[2024-09-29 08:16] VITALS: BP 138/63; TEMP 97; O2SAT 93
[2024-09-30] MEDS ORDERED: VENTAER INH (01:17)
[2024-09-30] MEDS ORDERED: FAMO20TA PO (01:55)
[2024-09-30] MEDS ORDERED: HALO1TAB PO (01:55)
[2024-09-30] MEDS ORDERED: DIAZ5TAB PO (01:55)
[2024-09-30] MEDS ORDERED: RAME8TAB2 PO (01:55)
[2024-09-30] MEDS ORDERED: FURO40TA2 PO (01:58)
== END 2024-09-29 08:30 | disposition home or self-care (01) ==
LOC: M ED 23:22
DX: G43.909 Migraine, unspecified, not intractable, without status migrainosus (principal); D64.9 Anemia, unspecified; Z88.0 Allergy status to penicillin; Z88.1 Allergy status to other antibiotic agents; Z88.5 Allergy status to narcotic agent; Z88.2 Allergy status to sulfonamides; Z88.8 Allergy status to other drugs, medicaments and biological substances; Z91.041 Radiographic dye allergy status; Z79.899 Other long term (current) drug therapy

== ENCOUNTER 2024-09-29 19:04 | Emergency (ER) | payer OTHER ==
[~2024-09-29] VITALS: Ht 175.3 cm; Wt 182.9 kg
[2024-09-29 20:17] LABS: KETONE, URINE AUTO RFX NEGATIVE (NEGATIVE); MUCUS, URINE RFX SMALL (NEGATIVE); NITRITE, URINE AUTO RFX NEGATIVE (NEGATIVE); RBC, URINE AUTO RFX 3 /HPF (0-3); SQUAM EPITHELIAL CELL UR AURFX 4 /HPF (0-6); WBC, URINE AUTO RFX 10 /HPF (0-3)
[2024-09-29 20:22] LABS: LEUKOCYTE ESTERASE UR AUTO RFX 2+ (NEGATIVE)
[2024-09-29 20:32] LABS: PLATELET COUNT, AUTOMATED 280 10^3/uL (150-450)
[2024-09-29 20:37] LABS: AMPHETAMINES LEVEL URINE NEGATIVE (NEGATIVE); BARBITURATES URINE NEGATIVE (NEGATIVE); CANNABINOIDS URINE NEGATIVE (NEGATIVE); COCAINE METABOLITE URINE NEGATIVE (NEGATIVE); METHADONE URINE NEGATIVE (NEGATIVE); OPIATES URINE NEGATIVE (NEGATIVE); PHENCYCLIDINE URINE NEGATIVE (NEGATIVE)
[2024-09-29 20:41] LABS: BENZODIAZEPINES URINE POSITIVE (NEGATIVE)
[2024-09-29 20:53] LABS: ETHYL ALCOHOL (ETHANOL) 0.004 % (0.000-0.010)
[2024-09-29 20:55] LABS: ALT/SGPT 36 U/L (7.0-40); AST/SGOT 27 U/L (<34); CALCIUM LEVEL 9.2 MG/DL (8.5-10.1); CARBON DIOXIDE LEVEL 29 MMOL/L (20-31); CHLORIDE LEVEL 102 MMOL/L (98-107); CREATININE FOR GFR 0.65 MG/DL (0.55-1.30); GLOMERULAR FILTRATION RATE > 90.0 (>60); POTASSIUM SERUM 4.6 MMOL/L (3.5-5.1); SALICYLATE LEVEL < 3.0 MG/DL (<30); SODIUM LEVEL 143 MMOL/L (136-145)
[2024-09-29 20:58] LABS: CPK CREATINE PHOSPHOKINASE 86 U/L (34-145)
[2024-09-30] MEDS: diphenhydrAMINE 12.5 MG/5 ML ELIXIR UDC PO ONE (01:00)
[2024-09-30] MEDS ORDERED: VENTAER INH (01:17)
[2024-09-30] MEDS ORDERED: HALO1TAB PO (01:55)
[2024-09-30] MEDS ORDERED: FAMO20TA PO (01:55)
[2024-09-30] MEDS ORDERED: DIAZ5TAB PO (01:55)
[2024-09-30] MEDS ORDERED: RAME8TAB2 PO (01:55)
[2024-09-30] MEDS ORDERED: FURO40TA2 PO (01:58)
[2024-09-30] MEDS ORDERED: HOME MED LIST COMPLETE! XX SCH (02:05)
[2024-09-30] MEDS: FUROSEMIDE 20 MG TAB PO ONE (14:29)
[2024-09-30] MEDS: HALOPERIDOL 1 MG TAB PO SCH (14:45)
[2024-09-30 15:51] VITALS: TEMP 97.2
[2024-09-30] MEDS: RIVAROXABAN 20MG TAB PO SCH (18:43)
[2024-10-01] MEDS: LEVOTHYROXINE 125 MCG TABLET (0.125 MG) PO SCH (06:58)
[2024-10-01 08:00] VITALS: BP 174/72
[2024-10-01 08:17] VITALS: BP 174/72
[2024-10-01] MEDS: FUROSEMIDE 20 MG TAB PO SCH (08:17)
[2024-10-01 09:15] VITALS: O2SAT 100
== END 2024-10-01 15:02 | disposition home or self-care (01) ==
LOC: M ED 19:04
DX: R45.851 Suicidal ideations (principal); T50.902A Poisoning by unspecified drugs, medicaments and biological substances, intentional self-harm, initial encounter; K62.5 Hemorrhage of anus and rectum; Z88.0 Allergy status to penicillin; Z91.010 Allergy to peanuts; Z88.2 Allergy status to sulfonamides; Z88.8 Allergy status to other drugs, medicaments and biological substances; Z91.013 Allergy to seafood; Z88.6 Allergy status to analgesic agent; Z79.899 Other long term (current) drug therapy; Z79.4 Long term (current) use of insulin; Z79.890 Hormone replacement therapy

== ENCOUNTER 2024-10-04 19:03 | Emergency (ER) | payer OTHER ==
[~2024-10-04] VITALS: Ht 172.7 cm; Wt 185.0 kg
[~2024-10-04 19:03] MED LIST changes: +DIAZ5TAB PO; +FAMO20TA PO; +HALO1TAB PO; +RAME8TAB2 PO
[2024-10-04 21:19] VITALS: TEMP 97.6
[2024-10-05] MEDS: KETOROLAC 30 MG/ML 1 ML VIAL IV ONE
[2024-10-05] MEDS: FAMOTIDINE 20 MG/2 ML VIAL IVP ONE (00:01)
[2024-10-05] MEDS: ONDANSETRON 4MG 2ML VIAL IV ONE (00:01)
[2024-10-05 00:28] LABS: BASO # 0.0 10^3/uL (0.0-0.2); BASO % 0.1 % (0.0-1.0); EOS # 0.2 10^3/uL (0.0-0.5); EOS % 2.5 % (0.0-3.0); LYMPH # 1.4 10^3/uL (1.5-5.0); LYMPH % 17.6 % (24.0-44.0); MONO # 0.6 10^3/uL (0.0-0.8); MONO % 6.9 % (2.0-8.0); NEUTROPHILS # 5.9 10^3/uL (1.5-8.5); NEUTROPHILS % 72.7 % (36.0-66.0); PLATELET COUNT, AUTOMATED 262 10^3/uL (150-450)
[2024-10-05 00:30] LABS: HCG, SERUM QUANTITATIVE < 2.6 MIU/ML (<4.2)
[2024-10-05 00:32] LABS: ALT/SGPT 27 U/L (7.0-40); AST/SGOT 18 U/L (<34); CALCIUM LEVEL 8.7 MG/DL (8.5-10.1); CARBON DIOXIDE LEVEL 29 MMOL/L (20-31); CHLORIDE LEVEL 105 MMOL/L (98-107); CREATININE FOR GFR 0.71 MG/DL (0.55-1.30); GLOMERULAR FILTRATION RATE > 90.0 (>60); POTASSIUM SERUM 3.7 MMOL/L (3.5-5.1); SODIUM LEVEL 145 MMOL/L (136-145)
[2024-10-05] MEDS: diphenhydrAMINE 50 MG/ML VIAL IV STA (02:46)
[2024-10-05] MEDS ORDERED: ISOVUE-370 76% 100 ML VIAL As Ordered ONE (03:20)
[2024-10-05 03:42] LABS: Trichomonas vaginalis (AMP) NOT DETECTED (NEGATIVE)
[2024-10-05 04:06] LABS: GC DNA AMPLIFICATION NEGATIVE (NEGATIVE)
[2024-10-05] MEDS: NS (Normal Saline) 0.9% 1,000 ML IV ONE (04:22)
[2024-10-05] MEDS ORDERED: DIBU28OI2 TOP (06:51)
[2024-10-05] MEDS: DIBUCAINE 1% OINTMENT 30 GM TOP PRN (07:00)
[2024-10-05 07:01] VITALS: BP 130/63; O2SAT 93
== END 2024-10-05 07:17 | disposition home or self-care (01) ==
LOC: EDBD 19:03 → M ED 19:03
DX: S30.814A Abrasion of vagina and vulva, initial encounter (principal); T76.21XA Adult sexual abuse, suspected, initial encounter; Y04.8XXA Assault by other bodily force, initial encounter; Y92.9 Unspecified place or not applicable; Y93.9 Activity, unspecified; Y99.9 Unspecified external cause status; F10.10 Alcohol abuse, uncomplicated; F12.10 Cannabis abuse, uncomplicated; R56.9 Unspecified convulsions; Z86.718 Personal history of other venous thrombosis and embolism; G47.33 Obstructive sleep apnea (adult) (pediatric); Z87.19 Personal history of other diseases of the digestive system; E03.9 Hypothyroidism, unspecified; C95.90 Leukemia, unspecified not having achieved remission; Z79.01 Long term (current) use of anticoagulants; Z79.899 Other long term (current) drug therapy; Z88.0 Allergy status to penicillin; Z88.1 Allergy status to other antibiotic agents; Z88.5 Allergy status to narcotic agent; Z88.6 Allergy status to analgesic agent; Z88.8 Allergy status to other drugs, medicaments and biological substances; Z88.2 Allergy status to sulfonamides; Z91.013 Allergy to seafood; Z91.041 Radiographic dye allergy status; Z91.040 Latex allergy status
CPT/HCPCS: 74177; 80048; 80076; 83690; 84702; 85025; 87210; 87661; 87810; 87850; 96361; 96374; 96375; 99284; J1200; J1308; J2405; J2919; Q9967

== ENCOUNTER 2024-10-06 18:50 | Emergency (ER) | payer OTHER ==
[~2024-10-06] VITALS: Ht 175.3 cm; Wt 186.9 kg
[~2024-10-06 18:50] MED LIST changes: +DIBU28OI2 TOP
[2024-10-06] MEDS: FAMOTIDINE 20 MG/2 ML VIAL IVP ONE (21:48)
[2024-10-06] MEDS: NS (Normal Saline) 0.9% 1,000 ML IV ONE (21:48)
[2024-10-06 22:02] LABS: BASO # 0.0 10^3/uL (0.0-0.2); BASO % 0.2 % (0.0-1.0); EOS # 0.1 10^3/uL (0.0-0.5); EOS % 0.7 % (0.0-3.0); LYMPH # 1.4 10^3/uL (1.5-5.0); LYMPH % 17.2 % (24.0-44.0); MONO # 0.6 10^3/uL (0.0-0.8); MONO % 6.9 % (2.0-8.0); NEUTROPHILS # 6.2 10^3/uL (1.5-8.5); NEUTROPHILS % 74.8 % (36.0-66.0); PLATELET COUNT, AUTOMATED 258 10^3/uL (150-450)
[2024-10-06 22:20] LABS: ALT/SGPT 15 U/L (7.0-40); AST/SGOT 10 U/L (<34); CALCIUM LEVEL 7.2 MG/DL (8.5-10.1); CARBON DIOXIDE LEVEL 27 MMOL/L (20-31); CHLORIDE LEVEL 110 MMOL/L (98-107); CREATININE FOR GFR 0.66 MG/DL (0.55-1.30); GLOMERULAR FILTRATION RATE > 90.0 (>60); POTASSIUM SERUM 3.6 MMOL/L (3.5-5.1); SODIUM LEVEL 149 MMOL/L (136-145)
[2024-10-07] MEDS ORDERED: EPIP0.3I2 IM (00:24)
[2024-10-07 00:30] VITALS: BP 152/81; TEMP 98.9; O2SAT 95
== END 2024-10-07 00:57 | disposition home or self-care (01) ==
LOC: M ED 18:50 → EDBD 18:50 → M ED 10-07 00:57
DX: T78.02XA Anaphylactic reaction due to shellfish (crustaceans), initial encounter (principal); Z88.0 Allergy status to penicillin; Z88.5 Allergy status to narcotic agent; Z88.6 Allergy status to analgesic agent; Z91.040 Latex allergy status; Z91.041 Radiographic dye allergy status; Z88.8 Allergy status to other drugs, medicaments and biological substances; Z88.2 Allergy status to sulfonamides; Z91.013 Allergy to seafood
CPT/HCPCS: 80048; 80076; 85025; 93041; 94760; 96361; 96374; 96375; 99285; J1308; J2919

== ENCOUNTER 2024-10-07 05:10 | Emergency (ER) | payer OTHER ==
[~2024-10-07] VITALS: Ht 175.3 cm; Wt 188.6 kg
[~2024-10-07 05:10] MED LIST changes: +EPIP0.3I2 IM
[2024-10-07 06:24] LABS: BASO # 0.0 10^3/uL (0.0-0.2); BASO % 0.1 % (0.0-1.0); EOS # 0.0 10^3/uL (0.0-0.5); EOS % 0.0 % (0.0-3.0); LYMPH # 0.3 10^3/uL (1.5-5.0); LYMPH % 3.5 % (24.0-44.0); MONO # 0.1 10^3/uL (0.0-0.8); MONO % 0.8 % (2.0-8.0); NEUTROPHILS # 8.9 10^3/uL (1.5-8.5); NEUTROPHILS % 95.0 % (36.0-66.0); PLATELET COUNT, AUTOMATED 292 10^3/uL (150-450)
[2024-10-07 06:45] VITALS: BP 147/66; TEMP 97.9; O2SAT 93
[2024-10-07 06:53] LABS: ETHYL ALCOHOL (ETHANOL) < 0.003 % (0.000-0.010)
[2024-10-07 06:54] LABS: SALICYLATE LEVEL < 3.0 MG/DL (<30)
[2024-10-07 07:02] LABS: ALT/SGPT 24 U/L (7.0-40); AST/SGOT 37 U/L (<34); CALCIUM LEVEL 8.4 MG/DL (8.5-10.1); CARBON DIOXIDE LEVEL 26 MMOL/L (20-31); CHLORIDE LEVEL 105 MMOL/L (98-107); CPK CREATINE PHOSPHOKINASE 52 U/L (34-145); CREATININE FOR GFR 0.59 MG/DL (0.55-1.30); GLOMERULAR FILTRATION RATE > 90.0 (>60); POTASSIUM SERUM 5.4 MMOL/L (3.5-5.1); SODIUM LEVEL 142 MMOL/L (136-145)
[2024-10-07 07:16] LABS: AMPHETAMINES LEVEL URINE NEGATIVE (NEGATIVE); BARBITURATES URINE NEGATIVE (NEGATIVE); COCAINE METABOLITE URINE NEGATIVE (NEGATIVE); METHADONE URINE NEGATIVE (NEGATIVE); OPIATES URINE NEGATIVE (NEGATIVE); PHENCYCLIDINE URINE NEGATIVE (NEGATIVE)
[2024-10-07 07:17] LABS: BENZODIAZEPINES URINE POSITIVE (NEGATIVE); CANNABINOIDS URINE POSITIVE (NEGATIVE)
== END 2024-10-07 06:58 | disposition left against medical advice (07) ==
LOC: M ED 05:10 → EDBD 05:10 → M ED 06:58
DX: Z53.21 Procedure and treatment not carried out due to patient leaving prior to being seen by health care provider (principal)

== ENCOUNTER 2024-10-14 02:25 | Emergency (ER) | payer OTHER ==
[~2024-10-14] VITALS: Ht 180.3 cm; Wt 123.6 kg
[2024-10-14 02:34] VITALS: BP 160/82; TEMP 97.9; O2SAT 97
== END 2024-10-14 04:05 | disposition left against medical advice (07) ==
LOC: M ED 02:25
DX: Z53.21 Procedure and treatment not carried out due to patient leaving prior to being seen by health care provider (principal)

== ENCOUNTER 2024-10-21 12:42 | Emergency (ER) | payer OTHER ==
[~2024-10-21] VITALS: Ht 175.3 cm; Wt 122.7 kg
[2024-10-21 13:48] LABS: PLATELET COUNT, AUTOMATED 271 10^3/uL (150-450)
[2024-10-21 14:45] VITALS: BP 118/55; O2SAT 100
[2024-10-21] MEDS ORDERED: CLEO300C2 PO (14:51)
[2024-10-21] MEDS: CLINDAMYCIN 150 MG CAPSULE PO ONE (15:08)
[2024-10-21 15:17] VITALS: TEMP 97.5
== END 2024-10-21 15:21 | disposition home or self-care (01) ==
LOC: EDBD 12:42 → M ED 12:42
DX: N92.0 Excessive and frequent menstruation with regular cycle (principal); L30.9 Dermatitis, unspecified; Z88.0 Allergy status to penicillin; Z88.1 Allergy status to other antibiotic agents; Z88.2 Allergy status to sulfonamides; Z88.5 Allergy status to narcotic agent; Z88.6 Allergy status to analgesic agent; Z91.041 Radiographic dye allergy status

== ENCOUNTER 2024-10-24 05:01 | Emergency (ER) | payer OTHER ==
[~2024-10-24] VITALS: Ht 175.3 cm; Wt 182.0 kg
[~2024-10-24 05:01] MED LIST changes: +CLEO300C2 PO
[2024-10-24 05:06] VITALS: TEMP 96.8
[2024-10-24 06:24] VITALS: BP 135/63
[2024-10-24 07:16] VITALS: O2SAT 97
== END 2024-10-24 07:59 | disposition home or self-care (01) ==
LOC: M ED 05:01
DX: S09.90XA Unspecified injury of head, initial encounter (principal); W18.2XXA Fall in (into) shower or empty bathtub, initial encounter; Y92.002 Bathroom of unspecified non-institutional (private) residence as the place of occurrence of the external cause; Y93.9 Activity, unspecified; Y99.9 Unspecified external cause status; E11.9 Type 2 diabetes mellitus without complications; E07.9 Disorder of thyroid, unspecified; Z79.4 Long term (current) use of insulin; Z79.899 Other long term (current) drug therapy; Z79.01 Long term (current) use of anticoagulants

== ENCOUNTER 2024-10-29 00:34 | Emergency (ER) | payer OTHER ==
[~2024-10-29] VITALS: Ht 175.3 cm; Wt 127.3 kg
[2024-10-29 01:59] LABS: CK-MB VALUE MASS < 1.0 NG/ML (<3.6)
[2024-10-29 02:01] LABS: CPK CREATINE PHOSPHOKINASE 103 U/L (34-145)
[2024-10-29 02:13] LABS: BASO # 0.0 10^3/uL (0.0-0.2); BASO % 0.3 % (0.0-1.0); EOS # 0.2 10^3/uL (0.0-0.5); EOS % 2.3 % (0.0-3.0); LYMPH # 1.1 10^3/uL (1.5-5.0); LYMPH % 11.7 % (24.0-44.0); MONO # 0.6 10^3/uL (0.0-0.8); MONO % 6.2 % (2.0-8.0); NEUTROPHILS # 7.4 10^3/uL (1.5-8.5); NEUTROPHILS % 79.1 % (36.0-66.0); PLATELET COUNT, AUTOMATED 298 10^3/uL (150-450)
[2024-10-29 03:54] LABS: CK-MB VALUE MASS < 1.0 NG/ML (<3.6)
[2024-10-29 03:56] LABS: CALCIUM LEVEL 8.2 MG/DL (8.5-10.1); CARBON DIOXIDE LEVEL 28 MMOL/L (20-31); CHLORIDE LEVEL 107 MMOL/L (98-107); CPK CREATINE PHOSPHOKINASE 50 U/L (34-145); CREATININE FOR GFR 0.74 MG/DL (0.55-1.30); GLOMERULAR FILTRATION RATE > 90.0 (>60); POTASSIUM SERUM 3.6 MMOL/L (3.5-5.1); SODIUM LEVEL 144 MMOL/L (136-145)
[2024-10-29] MEDS: IPRATROPIUM 0.5 MG/ALBUTEROL 2.5 MG INH SOL UD 3 ML NEB ONE (04:19)
[2024-10-29] MEDS: BENZONATATE 100 MG CAPSULE PO ONE (06:37)
[2024-10-29] MEDS: diphenhydrAMINE 50 MG/ML VIAL IV STA (06:39)
[2024-10-29] MEDS: HYDROCORTISONE 100 MG/2 ML VIAL IV ONE (06:42)
[2024-10-29] MEDS: FAMOTIDINE 20 MG/2 ML VIAL IVP ONE (06:43)
[2024-10-29] MEDS ORDERED: ISOVUE-370 76% 100 ML VIAL As Ordered ONE (07:12)
[2024-10-29 09:05] VITALS: BP 135/72
[2024-10-29 09:34] VITALS: O2SAT 96
[2024-10-29 09:43] VITALS: TEMP 98.3
[2024-10-29] MEDS ORDERED: BENZ-18 PO (09:57)
[2024-10-30] MEDS ORDERED: LURA20TA PO (19:09)
[2024-10-30] MEDS ORDERED: FURO20TA2 PO (19:09)
[2024-10-30] MEDS ORDERED: MED REC COMMENT (19:16)
== END 2024-10-29 10:23 | disposition home or self-care (01) ==
LOC: M ED 00:34
DX: R07.9 Chest pain, unspecified (principal); R91.8 Other nonspecific abnormal finding of lung field; B34.9 Viral infection, unspecified; I50.9 Heart failure, unspecified; E11.9 Type 2 diabetes mellitus without complications; E07.9 Disorder of thyroid, unspecified; Z86.711 Personal history of pulmonary embolism; Z79.01 Long term (current) use of anticoagulants; Z79.899 Other long term (current) drug therapy; Z88.0 Allergy status to penicillin; Z88.6 Allergy status to analgesic agent; Z88.1 Allergy status to other antibiotic agents; Z88.5 Allergy status to narcotic agent; Z88.2 Allergy status to sulfonamides; Z91.041 Radiographic dye allergy status; Z91.040 Latex allergy status; Z91.013 Allergy to seafood
CPT/HCPCS: 71045; 71275; 80048; 82550; 82553; 83880; 84484; 85025; 87486; 87581; 87633; 87798; 93005; 94640; 96374; 96375; 99285; J1200; J1308; J1720; Q9967

== ENCOUNTER 2024-10-30 15:07 | Inpatient (IN) | payer OTHER ==
[~2024-10-30] VITALS: Ht 175.3 cm; Wt 182.8 kg
[~2024-10-30 15:07] MED LIST changes: +BENZ-18 PO
[2024-10-30] MEDS: CHARCOAL ACTIVATED LIQUID 25 GM/120 ML BTL PO ONE (15:20)
[2024-10-30] MEDS: NS (Normal Saline) 0.9% 1,000 ML IV SCH ×2 (15:20→23:00)
[2024-10-30 15:40] LABS: BASO # 0.0 10^3/uL (0.0-0.2); BASO % 0.3 % (0.0-1.0); EOS # 0.2 10^3/uL (0.0-0.5); EOS % 2.1 % (0.0-3.0); LYMPH # 1.2 10^3/uL (1.5-5.0); LYMPH % 12.3 % (24.0-44.0); MONO # 0.6 10^3/uL (0.0-0.8); MONO % 6.1 % (2.0-8.0); NEUTROPHILS # 7.4 10^3/uL (1.5-8.5); NEUTROPHILS % 78.9 % (36.0-66.0); PLATELET COUNT, AUTOMATED 367 10^3/uL (150-450)
[2024-10-30 15:54] LABS: INR 1.68
[2024-10-30 16:07] LABS: CPK CREATINE PHOSPHOKINASE 42 U/L (34-145); SALICYLATE LEVEL < 3.0 MG/DL (<30)
[2024-10-30 16:09] LABS: ALT/SGPT 10 U/L (7.0-40); AST/SGOT 9 U/L (<34); CALCIUM LEVEL 7.4 MG/DL (8.5-10.1); CARBON DIOXIDE LEVEL 24 MMOL/L (20-31); CHLORIDE LEVEL 111 MMOL/L (98-107); CREATININE FOR GFR 0.70 MG/DL (0.55-1.30); ETHYL ALCOHOL (ETHANOL) < 0.003 % (0.000-0.010); GLOMERULAR FILTRATION RATE > 90.0 (>60); POTASSIUM SERUM 3.2 MMOL/L (3.5-5.1); SODIUM LEVEL 146 MMOL/L (136-145)
[2024-10-30 16:17] LABS: HCG, SERUM QUALITATIVE NEGATIVE (NEGATIVE)
[2024-10-30] MEDS ORDERED: FURO20TA2 PO (19:09)
[2024-10-30] MEDS ORDERED: LURA20TA PO (19:09)
[2024-10-30] MEDS ORDERED: HOME MED LIST COMPLETE! XX SCH ×2 (19:10→19:15)
[2024-10-30] MEDS ORDERED: MED REC COMMENT (19:16)
[2024-10-30] MEDS ORDERED: DEXTROSE 50% 50 ML SYRINGE IV PRN (20:15)
[2024-10-30] MEDS ORDERED: GLUCOSE 4 GM CHEW PO PRN (20:15)
[2024-10-30] MEDS ORDERED: GLUCAGON INJ 1 MG VIAL SC PRN (20:15)
[2024-10-30 20:17] LABS: VENOUS BASE EXCESS -3.8 (-2.0-2.0); VENOUS HCO3 22.6 MMOL/L (23.0-27.0); VENOUS O2 SATURATION 97.7 % (60.0-80.0); VENOUS PARTIAL PRESSURE CO2 47.6 mmHg (38.0-50.0); VENOUS PARTIAL PRESSURE O2 126.8 mmHg (30.0-50.0); VENOUS PH 7.295 UNITS (7.330-7.430); VENOUS STANDARD HCO3 21.3 MMOL/L; VENOUS TOTAL CO2 24.1 MMOL/L (24.0-28.0)
[2024-10-30 21:03] LABS: INR 4.96
[2024-10-30 22:11] LABS: PLATELET COUNT, AUTOMATED 335 10^3/uL (150-450)
[2024-10-30 22:58] LABS: ALT/SGPT 12 U/L (7.0-40); AST/SGOT 25 U/L (<34); CALCIUM LEVEL 7.8 MG/DL (8.5-10.1); CARBON DIOXIDE LEVEL 24 MMOL/L (20-31); CHLORIDE LEVEL 109 MMOL/L (98-107); CREATININE FOR GFR 0.65 MG/DL (0.55-1.30); FREE T4 0.77 NG/DL (0.89-1.76); GLOMERULAR FILTRATION RATE > 90.0 (>60); POTASSIUM SERUM 4.1 MMOL/L (3.5-5.1); SODIUM LEVEL 145 MMOL/L (136-145)
[2024-10-30 23:08] VITALS: BP 122/58; O2SAT 95
[2024-10-31] VITALS (9 sets, daily range): BP systolic 118–175; BP diastolic 59–92; TEMP 97–97.3; O2SAT 96–99
[2024-10-31] MEDS ORDERED: ALBUTEROL 90 MCG/ACT 8 GM HFA INHALER INH PRN (00:20)
[2024-10-31 00:51] LABS: VENOUS BASE EXCESS -0.9 (-2.0-2.0); VENOUS HCO3 24.5 MMOL/L (23.0-27.0); VENOUS O2 SATURATION 99.1 % (60.0-80.0); VENOUS PARTIAL PRESSURE CO2 44.0 mmHg (38.0-50.0); VENOUS PARTIAL PRESSURE O2 189.0 mmHg (30.0-50.0); VENOUS PH 7.364 UNITS (7.330-7.430); VENOUS STANDARD HCO3 23.7 MMOL/L; VENOUS TOTAL CO2 25.9 MMOL/L (24.0-28.0)
[2024-10-31 04:39] LABS: PLATELET COUNT, AUTOMATED 286 10^3/uL (150-450)
[2024-10-31 04:56] LABS: INR 2.78
[2024-10-31 05:06] LABS: ALT/SGPT 13 U/L (7.0-40); AST/SGOT 12 U/L (<34); CALCIUM LEVEL 8.1 MG/DL (8.5-10.1); CARBON DIOXIDE LEVEL 28 MMOL/L (20-31); CHLORIDE LEVEL 106 MMOL/L (98-107); CREATININE FOR GFR 0.67 MG/DL (0.55-1.30); GLOMERULAR FILTRATION RATE > 90.0 (>60); POTASSIUM SERUM 3.2 MMOL/L (3.5-5.1); SODIUM LEVEL 143 MMOL/L (136-145)
[2024-10-31 05:07] LABS: HEPATITIS B SURFACE ANTIBODY NEGATIVE (POSITIVE); HEPATITIS C VIRUS ABY INDEX < 0.02 INDEX (<0.8)
[2024-10-31] MEDS: KCL 10MEQ/100ML SWI (KRUN) 10 MEQ in IV 1 EA IV SCH (05:50)
[2024-10-31] MEDS: LEVOTHYROXINE 125 MCG TABLET (0.125 MG) PO SCH (05:51)
[2024-10-31] MEDS ORDERED: GLUCOSE 4 GM CHEW PO PRN (08:05)
[2024-10-31] MEDS ORDERED: DEXTROSE 50% 50 ML SYRINGE IV PRN (08:05)
[2024-10-31] MEDS ORDERED: CLINDAMYCIN 300 MG in IV 1 EA IV SCH (08:10)
[2024-10-31] MEDS: PANTOPRAZOLE 40MG TAB PO SCH (08:18)
[2024-10-31 09:25] LABS: AMPHETAMINES LEVEL URINE NEGATIVE (NEGATIVE); BARBITURATES URINE NEGATIVE (NEGATIVE); CANNABINOIDS URINE NEGATIVE (NEGATIVE); COCAINE METABOLITE URINE NEGATIVE (NEGATIVE); METHADONE URINE NEGATIVE (NEGATIVE); OPIATES URINE NEGATIVE (NEGATIVE); PHENCYCLIDINE URINE NEGATIVE (NEGATIVE)
[2024-10-31 09:27] LABS: BENZODIAZEPINES URINE POSITIVE (NEGATIVE)
[2024-10-31 10:02] LABS: ESTIMATED AVERAGE GLUCOSE 117.0 MG/DL (60-110)
[2024-10-31] MEDS ORDERED: PREG25CA3 PO (10:48)
[2024-10-31] MEDS: CIPROFLOXACIN 400 MG in IV 1 EA IV SCH (11:37)
[2024-10-31] MEDS ORDERED: INSULIN LISPRO (NovoLOG) PER UNIT SC SCH (12:00)
[2024-10-31] MEDS: CIPROFLOXACIN 500 MG TABLET PO ONE (14:06)
[2024-10-31 14:19] LABS: PLATELET COUNT, AUTOMATED 307 10^3/uL (150-450)
[2024-10-31 14:55] LABS: CALCIUM LEVEL 8.2 MG/DL (8.5-10.1); CARBON DIOXIDE LEVEL 28 MMOL/L (20-31); CHLORIDE LEVEL 106 MMOL/L (98-107); CREATININE FOR GFR 0.61 MG/DL (0.55-1.30); GLOMERULAR FILTRATION RATE > 90.0 (>60); POTASSIUM SERUM 4.0 MMOL/L (3.5-5.1); SODIUM LEVEL 144 MMOL/L (136-145)
[2024-10-31 15:52] LABS: CK-MB VALUE MASS < 1.0 NG/ML (<3.6)
[2024-10-31 15:54] LABS: CPK CREATINE PHOSPHOKINASE 96 U/L (34-145)
[2024-11-01] MEDS ORDERED: CIPROFLOXACIN 500 MG TABLET PO SCH (06:00)
== END 2024-10-31 23:04 | DRG 812 ==
LOC: M ED 15:07 → EDBD 15:07 → M ED INP 20:14 → M ICU 22:47
PROVIDERS: ADMIT Internal Medicine; ATTEND Student in an Organized Health Care Education/Training Program
DX: T42.4X1A Poisoning by benzodiazepines, accidental (unintentional), initial encounter (principal); D68.9 Coagulation defect, unspecified; D69.6 Thrombocytopenia, unspecified; I27.20 Pulmonary hypertension, unspecified; Z68.42 Body mass index [BMI] 45.0-49.9, adult; R16.1 Splenomegaly, not elsewhere classified; E66.813 Obesity, class 3; D50.9 Iron deficiency anemia, unspecified; G40.909 Epilepsy, unspecified, not intractable, without status epilepticus; R41.82 Altered mental status, unspecified; F60.3 Borderline personality disorder; F43.10 Post-traumatic stress disorder, unspecified; F41.9 Anxiety disorder, unspecified; E03.9 Hypothyroidism, unspecified; Z86.718 Personal history of other venous thrombosis and embolism; G47.33 Obstructive sleep apnea (adult) (pediatric); Z79.899 Other long term (current) drug therapy; Z88.0 Allergy status to penicillin; Z91.040 Latex allergy status; Z88.8 Allergy status to other drugs, medicaments and biological substances; Z88.2 Allergy status to sulfonamides; Z88.6 Allergy status to analgesic agent; Z79.890 Hormone replacement therapy; Z79.01 Long term (current) use of anticoagulants; C92.91 Myeloid leukemia, unspecified in remission

== ENCOUNTER 2024-10-31 18:44 | Inpatient (IN) | payer OTHER ==
[~2024-10-31] VITALS: Ht 175.3 cm; Wt 122.7 kg
[~2024-10-31 18:44] MED LIST changes: +FURO20TA2 PO; +LURA20TA PO; +MED REC COMMENT; +PREG25CA3 PO
[2024-10-31] MEDS ORDERED: MOM 30 ML SUSPENSION UDC PO PRN (19:00)
[2024-10-31] MEDS ORDERED: MAALOX 30 ML SUSP *UDC PO PRN (19:00)
[2024-10-31] MEDS ORDERED: traZODone 50 MG TAB PO PRN (19:00)
[2024-10-31 23:27] VITALS: BP 144/70; TEMP 97; O2SAT 98
[2024-11-01] MEDS ORDERED: ONDANSETRON 4MG TAB PO PRN (03:20)
[2024-11-01] MEDS: FUROSEMIDE 20 MG TAB PO SCH (09:00)
[2024-11-01] MEDS ORDERED: ALBUTEROL 90 MCG/ACT 8 GM HFA INHALER INH PRN (09:35)
[2024-11-01] MEDS ORDERED: DIBUCAINE 1% OINTMENT 30 GM TOP PRN (09:35)
[2024-11-01] MEDS ORDERED: EPINEPHrine INJ 1 MG/ML 1ML AMP SC PRN (09:35)
[2024-11-01 10:15] VITALS: BP 115/77
[2024-11-01] MEDS: LEVOTHYROXINE 125 MCG TABLET (0.125 MG) PO SCH (11:09)
[2024-11-01] MEDS: PREGABALIN 25 MG CAP PO SCH (12:00)
[2024-11-01] MEDS ORDERED: LURASIDONE HCL 20 MG TAB PO SCH (18:00)
== END 2024-11-01 14:20 | disposition home or self-care (01) | DRG 751 ==
LOC: M PSY 23:07
PROVIDERS: ADMIT Student in an Organized Health Care Education/Training Program; ATTEND Student in an Organized Health Care Education/Training Program
DX: F33.9 Major depressive disorder, recurrent, unspecified (principal); F60.3 Borderline personality disorder; F43.10 Post-traumatic stress disorder, unspecified; F41.9 Anxiety disorder, unspecified; G47.33 Obstructive sleep apnea (adult) (pediatric); Z88.5 Allergy status to narcotic agent; Z91.013 Allergy to seafood; Z91.040 Latex allergy status; Z88.2 Allergy status to sulfonamides; Z88.6 Allergy status to analgesic agent; Z88.8 Allergy status to other drugs, medicaments and biological substances; Z79.899 Other long term (current) drug therapy; Z86.718 Personal history of other venous thrombosis and embolism; Z79.01 Long term (current) use of anticoagulants; D50.9 Iron deficiency anemia, unspecified; E66.01 Morbid (severe) obesity due to excess calories; Z68.42 Body mass index [BMI] 45.0-49.9, adult; R16.1 Splenomegaly, not elsewhere classified; E03.9 Hypothyroidism, unspecified; G40.909 Epilepsy, unspecified, not intractable, without status epilepticus; I27.20 Pulmonary hypertension, unspecified

== ENCOUNTER 2024-11-02 22:11 | Emergency (ER) | payer OTHER ==
[~2024-11-02] VITALS: Ht 175.3 cm; Wt 124.1 kg
[2024-11-02 22:16] VITALS: BP 117/64; TEMP 97.2; O2SAT 96
== END 2024-11-02 23:18 | disposition left against medical advice (07) ==
LOC: M ED 22:11
DX: Z53.21 Procedure and treatment not carried out due to patient leaving prior to being seen by health care provider (principal)

== ENCOUNTER 2024-11-04 04:58 | Emergency (ER) | payer OTHER ==
[~2024-11-04 04:58] MED LIST changes: +RALTEGRAVIR 400 MG TAB PO SCH
[2024-11-04 09:10] LABS: BASO # 0.0 10^3/uL (0.0-0.2); BASO % 0.3 % (0.0-1.0); EOS # 0.2 10^3/uL (0.0-0.5); EOS % 1.9 % (0.0-3.0); LYMPH # 1.4 10^3/uL (1.5-5.0); LYMPH % 15.5 % (24.0-44.0); MONO # 0.5 10^3/uL (0.0-0.8); MONO % 6.0 % (2.0-8.0); NEUTROPHILS # 6.7 10^3/uL (1.5-8.5); NEUTROPHILS % 75.8 % (36.0-66.0); PLATELET COUNT, AUTOMATED 360 10^3/uL (150-450)
[2024-11-04 09:21] LABS: ALT/SGPT 14 U/L (7.0-40); AST/SGOT 14 U/L (<34); CALCIUM LEVEL 8.3 MG/DL (8.5-10.1); CARBON DIOXIDE LEVEL 29 MMOL/L (20-31); CHLORIDE LEVEL 107 MMOL/L (98-107); CREATININE FOR GFR 0.72 MG/DL (0.55-1.30); GLOMERULAR FILTRATION RATE > 90.0 (>60); POTASSIUM SERUM 4.4 MMOL/L (3.5-5.1); SODIUM LEVEL 143 MMOL/L (136-145)
[2024-11-04 09:23] LABS: HCG, SERUM QUALITATIVE NEGATIVE (NEGATIVE); HEPATITIS B SURFACE ANTIBODY NEGATIVE (POSITIVE)
[2024-11-04] MEDS ORDERED: ISOVUE-370 76% 100 ML VIAL As Ordered ONE (09:44)
[2024-11-04 09:49] LABS: HIV 1&2 SCREEN NEGATIVE (NEGATIVE)
[2024-11-04 09:55] LABS: HEPATITIS C VIRUS ABY INDEX 0.02 INDEX (<0.8)
[2024-11-04 10:03] VITALS: BP 131/75; O2SAT 97
[2024-11-04] MEDS ORDERED: EXPOSURE KIT-ADULT 7 DAY SUPPLY PO ONE (10:05)
[2024-11-04] MEDS: diphenhydrAMINE 50 MG/ML VIAL IV STA (10:11)
[2024-11-04] MEDS: FAMOTIDINE IV BAG 20 MG in IV 1 EA IV ONE (12:12)
[2024-11-04] MEDS: AZITHROMYCIN INJ 500 MG VIAL XX ONE (12:14)
[2024-11-04] MEDS: TETANUS/DIPHTH/ACEL. PERTUSSIS 0.5 ML SYR IM.IMMUN ONE (12:18)
[2024-11-04] MEDS: RALTEGRAVIR 400 MG TAB PO ONE (12:20)
[2024-11-04] MEDS: ONDANSETRON 4MG 2ML VIAL IV ONE (12:29)
[2024-11-04] MEDS ORDERED: AZITHROMYCIN INJ 500 MG VIAL XX ONE (13:00)
[2024-11-04] MEDS: LIDOCAINE 2% 5 ML JELLY UROJET TOP ONE (13:07)
[2024-11-04 13:12] LABS: Trichomonas vaginalis (AMP) NOT DETECTED (NEGATIVE)
[2024-11-04] MEDS: ULIPRISTAL ACETATE 30 MG TAB PO ONE (13:16)
[2024-11-04] MEDS: AZITHROMYCIN INJ 500 MG, VIAL MATE ADAPTER 1 EACH in NS 250 ML IV SCH (13:17)
[2024-11-04 13:21] VITALS: TEMP 97.7
[2024-11-04 13:36] LABS: GC DNA AMPLIFICATION NEGATIVE (NEGATIVE)
[2024-11-04] MEDS: GENTAMICIN SULF 80 MG/2 ML VIAL IM ONE (14:15)
[2024-11-05] MEDS ORDERED: DIAZ5TAB PO (13:15)
[2024-11-05] MEDS ORDERED: CLEO300C2 PO (13:17)
[2024-11-05] MEDS ORDERED: BENZ-18 PO (13:17)
== END 2024-11-04 14:37 | disposition left against medical advice (07) ==
LOC: M ED 04:58
DX: S09.90XA Unspecified injury of head, initial encounter (principal); Z53.9 Procedure and treatment not carried out, unspecified reason; T71.193A Asphyxiation due to mechanical threat to breathing due to other causes, assault, initial encounter; T76.21XA Adult sexual abuse, suspected, initial encounter; Y04.8XXA Assault by other bodily force, initial encounter; Y92.009 Unspecified place in unspecified non-institutional (private) residence as the place of occurrence of the external cause; Y93.89 Activity, other specified; Y99.9 Unspecified external cause status; D50.9 Iron deficiency anemia, unspecified; F41.9 Anxiety disorder, unspecified; F32.A Depression, unspecified; F43.10 Post-traumatic stress disorder, unspecified; F20.9 Schizophrenia, unspecified; G47.30 Sleep apnea, unspecified; Z86.718 Personal history of other venous thrombosis and embolism; Z79.01 Long term (current) use of anticoagulants; Z79.899 Other long term (current) drug therapy; Z88.0 Allergy status to penicillin; Z88.8 Allergy status to other drugs, medicaments and biological substances; Z88.1 Allergy status to other antibiotic agents; Z88.5 Allergy status to narcotic agent; Z88.6 Allergy status to analgesic agent; Z88.2 Allergy status to sulfonamides; Z91.013 Allergy to seafood; Z91.041 Radiographic dye allergy status; Z91.02 Food additives allergy status
CPT/HCPCS: 70450; 70498; 72125; 80053; 84703; 85025; 86706; 86780; 86803; 87340; 87389; 87661; 87810; 87850; 90471; 90715; 93041; 96365; 96367; 96375; 99284; J0456; J1200; J1308; J2405; J2919; Q9967

== ENCOUNTER 2024-11-05 00:43 | Inpatient (IN) | payer OTHER ==
[~2024-11-05] VITALS: Ht 175.3 cm; Wt 125.0 kg
[~2024-11-05 00:43] MED LIST changes: -RALTEGRAVIR 400 MG TAB PO SCH
[2024-11-05 01:47] LABS: BASO # 0.0 10^3/uL (0.0-0.2); BASO % 0.1 % (0.0-1.0); EOS # 0.0 10^3/uL (0.0-0.5); EOS % 0.0 % (0.0-3.0); LYMPH # 0.5 10^3/uL (1.5-5.0); LYMPH % 4.0 % (24.0-44.0); MONO # 0.3 10^3/uL (0.0-0.8); MONO % 2.6 % (2.0-8.0); NEUTROPHILS # 12.2 10^3/uL (1.5-8.5); NEUTROPHILS % 92.6 % (36.0-66.0); PLATELET COUNT, AUTOMATED 398 10^3/uL (150-450)
[2024-11-05 02:19] LABS: AMPHETAMINES LEVEL URINE NEGATIVE (NEGATIVE); BARBITURATES URINE NEGATIVE (NEGATIVE); COCAINE METABOLITE URINE NEGATIVE (NEGATIVE); METHADONE URINE NEGATIVE (NEGATIVE); OPIATES URINE NEGATIVE (NEGATIVE); PHENCYCLIDINE URINE NEGATIVE (NEGATIVE)
[2024-11-05 02:21] LABS: BENZODIAZEPINES URINE POSITIVE (NEGATIVE); CANNABINOIDS URINE POSITIVE (NEGATIVE)
[2024-11-05 02:21] LABS: ETHYL ALCOHOL (ETHANOL) 0.004 % (0.000-0.010)
[2024-11-05 02:22] LABS: SALICYLATE LEVEL < 3.0 MG/DL (<30)
[2024-11-05 02:23] LABS: CPK CREATINE PHOSPHOKINASE 67 U/L (34-145); HCG, SERUM QUALITATIVE NEGATIVE (NEGATIVE)
[2024-11-05 02:30] LABS: ALT/SGPT 14 U/L (7.0-40); AST/SGOT 13 U/L (<34); CALCIUM LEVEL 8.8 MG/DL (8.5-10.1); CARBON DIOXIDE LEVEL 27 MMOL/L (20-31); CHLORIDE LEVEL 105 MMOL/L (98-107); CREATININE FOR GFR 0.77 MG/DL (0.55-1.30); GLOMERULAR FILTRATION RATE > 90.0 (>60); POTASSIUM SERUM 4.6 MMOL/L (3.5-5.1); SODIUM LEVEL 142 MMOL/L (136-145)
[2024-11-05 02:42] LABS: INR 0.98
[2024-11-05] MEDS: CHARCOAL ACTIVATED LIQUID 25 GM/120 ML BTL PO ONE (04:25)
[2024-11-05] MEDS: MUPIROCIN 2% OINT 22 GM TUBE TOP SCH (09:00)
[2024-11-05] MEDS ORDERED: DIAZ5TAB PO (13:15)
[2024-11-05] MEDS ORDERED: BENZ-18 PO (13:17)
[2024-11-05] MEDS ORDERED: CLEO300C2 PO (13:17)
[2024-11-05] MEDS ORDERED: HOME MED LIST COMPLETE! XX SCH (13:20)
[2024-11-05 18:43] VITALS: BP 132/71; TEMP 98.1; O2SAT 100
[2024-11-06] MEDS ORDERED: ALBUTEROL 90 MCG/ACT 8 GM HFA INHALER INH PRN (14:35)
[2024-11-06] MEDS ORDERED: BENZONATATE 100 MG CAPSULE PO PRN (14:35)
[2024-11-06] MEDS ORDERED: PREGABALIN 25 MG CAP PO SCH (21:00)
[2024-11-06] MEDS ORDERED: LURASIDONE HCL 20 MG TAB PO SCH (21:00)
[2024-11-06] MEDS ORDERED: RAMELTEON 8 MG TAB PO SCH (21:00)
[2024-11-07] MEDS ORDERED: LEVOTHYROXINE 125 MCG TABLET (0.125 MG) PO SCH (06:00)
[2024-11-07] MEDS ORDERED: FUROSEMIDE 20 MG TAB PO SCH (09:00)
== END 2024-11-06 05:00 | disposition left against medical advice (07) | DRG 812 ==
LOC: M ED 00:43 → M ED INP 05:11
PROVIDERS: ADMIT Student in an Organized Health Care Education/Training Program; ATTEND Student in an Organized Health Care Education/Training Program
DX: T42.4X2A Poisoning by benzodiazepines, intentional self-harm, initial encounter (principal); I27.20 Pulmonary hypertension, unspecified; Z68.42 Body mass index [BMI] 45.0-49.9, adult; E66.01 Morbid (severe) obesity due to excess calories; F33.1 Major depressive disorder, recurrent, moderate; R16.1 Splenomegaly, not elsewhere classified; Z88.0 Allergy status to penicillin; Z91.013 Allergy to seafood; Z91.040 Latex allergy status; Z88.5 Allergy status to narcotic agent; Z91.041 Radiographic dye allergy status; Z88.2 Allergy status to sulfonamides; Z88.6 Allergy status to analgesic agent; G47.33 Obstructive sleep apnea (adult) (pediatric); E03.9 Hypothyroidism, unspecified; D50.9 Iron deficiency anemia, unspecified; G40.909 Epilepsy, unspecified, not intractable, without status epilepticus; Z91.010 Allergy to peanuts; Z79.899 Other long term (current) drug therapy; Z79.890 Hormone replacement therapy

== ENCOUNTER 2024-11-07 18:15 | Emergency (ER) | payer OTHER ==
[2024-11-07] MEDS: ONDANSETRON 4MG 2ML VIAL IV ONE (19:24)
[2024-11-07] MEDS: PANTOPRAZOLE 40MG VIAL IV ONE (19:24)
[2024-11-07] MEDS: NS 500 ML IV ONE (19:25)
[2024-11-07 19:36] LABS: BASO # 0.0 10^3/uL (0.0-0.2); BASO % 0.3 % (0.0-1.0); EOS # 0.3 10^3/uL (0.0-0.5); EOS % 2.3 % (0.0-3.0); LYMPH # 1.3 10^3/uL (1.5-5.0); LYMPH % 9.9 % (24.0-44.0); MONO # 1.0 10^3/uL (0.0-0.8); MONO % 7.2 % (2.0-8.0); NEUTROPHILS # 10.6 10^3/uL (1.5-8.5); NEUTROPHILS % 80.1 % (36.0-66.0); PLATELET COUNT, AUTOMATED 321 10^3/uL (150-450)
[2024-11-07 19:56] LABS: CALCIUM LEVEL 8.7 MG/DL (8.5-10.1); CARBON DIOXIDE LEVEL 27 MMOL/L (20-31); CHLORIDE LEVEL 104 MMOL/L (98-107); CREATININE FOR GFR 0.72 MG/DL (0.55-1.30); GLOMERULAR FILTRATION RATE > 90.0 (>60); POTASSIUM SERUM 4.5 MMOL/L (3.5-5.1); SODIUM LEVEL 141 MMOL/L (136-145)
[2024-11-07 21:44] VITALS: BP 144/63; TEMP 96.8; O2SAT 96
== END 2024-11-07 21:59 | disposition home or self-care (01) ==
LOC: EDBD 18:15 → M ED 18:15
DX: T45.1X5A Adverse effect of antineoplastic and immunosuppressive drugs, initial encounter (principal); Z79.01 Long term (current) use of anticoagulants; Z79.899 Other long term (current) drug therapy; Z88.0 Allergy status to penicillin; Z88.6 Allergy status to analgesic agent; Z88.8 Allergy status to other drugs, medicaments and biological substances; Z88.1 Allergy status to other antibiotic agents; Z88.5 Allergy status to narcotic agent; Z88.2 Allergy status to sulfonamides; Z91.040 Latex allergy status; Z91.041 Radiographic dye allergy status; Z91.013 Allergy to seafood; Z91.02 Food additives allergy status
CPT/HCPCS: 80048; 85025; 96361; 96374; 96375; 99284; J2405; J2470; J2550

== ENCOUNTER 2024-11-14 08:06 | Emergency (ER) | payer OTHER ==
[2024-11-14 11:20] LABS: BASO # 0.0 10^3/uL (0.0-0.2); BASO % 0.3 % (0.0-1.0); EOS # 0.3 10^3/uL (0.0-0.5); EOS % 2.9 % (0.0-3.0); LYMPH # 1.3 10^3/uL (1.5-5.0); LYMPH % 14.4 % (24.0-44.0); MONO # 0.8 10^3/uL (0.0-0.8); MONO % 8.6 % (2.0-8.0); NEUTROPHILS # 6.5 10^3/uL (1.5-8.5); NEUTROPHILS % 73.5 % (36.0-66.0); PLATELET COUNT, AUTOMATED 329 10^3/uL (150-450)
[2024-11-14 11:43] VITALS: BP 143/95; TEMP 96.9; O2SAT 100
[2024-11-14 12:19] LABS: CALCIUM LEVEL 9.0 MG/DL (8.5-10.1); CARBON DIOXIDE LEVEL 24 MMOL/L (20-31); CHLORIDE LEVEL 105 MMOL/L (98-107); CK-MB VALUE MASS < 1.0 NG/ML (<3.6); CPK CREATINE PHOSPHOKINASE 64 U/L (34-145); CREATININE FOR GFR 0.71 MG/DL (0.55-1.30); FREE T4 0.90 NG/DL (0.89-1.76); GLOMERULAR FILTRATION RATE > 90.0 (>60); POTASSIUM SERUM 4.6 MMOL/L (3.5-5.1); SODIUM LEVEL 141 MMOL/L (136-145)
[2024-11-14] MEDS: NS (Normal Saline) 0.9% 1,000 ML IV ONE (13:50)
== END 2024-11-14 15:37 | disposition home or self-care (01) ==
LOC: EDBD 08:06 → M ED 08:06
DX: R07.9 Chest pain, unspecified (principal); Z86.79 Personal history of other diseases of the circulatory system; Z86.718 Personal history of other venous thrombosis and embolism; Z87.01 Personal history of pneumonia (recurrent); F41.9 Anxiety disorder, unspecified; F32.A Depression, unspecified; F12.10 Cannabis abuse, uncomplicated; Z79.01 Long term (current) use of anticoagulants; Z79.899 Other long term (current) drug therapy; Z88.0 Allergy status to penicillin; Z88.6 Allergy status to analgesic agent; Z88.8 Allergy status to other drugs, medicaments and biological substances; Z88.1 Allergy status to other antibiotic agents; Z88.5 Allergy status to narcotic agent; Z91.041 Radiographic dye allergy status; Z91.018 Allergy to other foods; Z91.040 Latex allergy status; Z91.013 Allergy to seafood; Z91.02 Food additives allergy status

== ENCOUNTER 2024-11-14 20:36 | Emergency (ER) | payer OTHER ==
[~2024-11-14] VITALS: Ht 175.3 cm; Wt 159.1 kg
[2024-11-15 04:39] VITALS: TEMP 97.9
[2024-11-15 06:45] VITALS: O2SAT 95
[2024-11-15 06:46] VITALS: BP 135/64
== END 2024-11-15 07:12 | disposition left against medical advice (07) ==
LOC: M ED 20:36
DX: Z53.21 Procedure and treatment not carried out due to patient leaving prior to being seen by health care provider (principal)

== ENCOUNTER 2024-11-15 19:06 | Emergency (ER) | payer OTHER ==
[~2024-11-15] VITALS: Ht 175.3 cm; Wt 122.7 kg
[2024-11-15 20:25] LABS: BASO # 0.0 10^3/uL (0.0-0.2); BASO % 0.3 % (0.0-1.0); EOS # 0.2 10^3/uL (0.0-0.5); EOS % 2.4 % (0.0-3.0); LYMPH # 1.1 10^3/uL (1.5-5.0); LYMPH % 12.6 % (24.0-44.0); MONO # 0.7 10^3/uL (0.0-0.8); MONO % 7.9 % (2.0-8.0); NEUTROPHILS # 6.7 10^3/uL (1.5-8.5); NEUTROPHILS % 76.5 % (36.0-66.0); PLATELET COUNT, AUTOMATED 333 10^3/uL (150-450)
[2024-11-15 20:42] LABS: INR 0.99
[2024-11-15 20:56] LABS: CK-MB VALUE MASS 1.0 NG/ML (<3.6)
[2024-11-15 20:57] LABS: CPK CREATINE PHOSPHOKINASE 63 U/L (34-145); MB/CK RELATIVE INDEX 1.58 (< OR =4)
[2024-11-15 20:59] LABS: ALT/SGPT 15 U/L (7.0-40); AST/SGOT 12 U/L (<34); CALCIUM LEVEL 8.8 MG/DL (8.5-10.1); CARBON DIOXIDE LEVEL 30 MMOL/L (20-31); CHLORIDE LEVEL 105 MMOL/L (98-107); CREATININE FOR GFR 0.75 MG/DL (0.55-1.30); GLOMERULAR FILTRATION RATE > 90.0 (>60); POTASSIUM SERUM 3.5 MMOL/L (3.5-5.1); SODIUM LEVEL 143 MMOL/L (136-145)
[2024-11-15 21:48] LABS: ETHYL ALCOHOL (ETHANOL) < 0.003 % (0.000-0.010)
[2024-11-15] MEDS: CHARCOAL ACTIVATED LIQUID 25 GM/120 ML BTL PO ONE (22:03)
[2024-11-15 23:56] LABS: CPK CREATINE PHOSPHOKINASE 57 U/L (34-145); SALICYLATE LEVEL < 3.0 MG/DL (<30)
[2024-11-15 23:57] LABS: CK-MB VALUE MASS 1.0 NG/ML (<3.6); MB/CK RELATIVE INDEX 1.75 (< OR =4)
[2024-11-16 01:46] LABS: BARBITURATES URINE NEGATIVE (NEGATIVE); COCAINE METABOLITE URINE NEGATIVE (NEGATIVE); METHADONE URINE NEGATIVE (NEGATIVE)
[2024-11-16 01:47] LABS: OPIATES URINE NEGATIVE (NEGATIVE); PHENCYCLIDINE URINE NEGATIVE (NEGATIVE)
[2024-11-16 01:53] LABS: AMPHETAMINES LEVEL URINE POSITIVE (NEGATIVE); BENZODIAZEPINES URINE POSITIVE (NEGATIVE); CANNABINOIDS URINE POSITIVE (NEGATIVE)
[2024-11-16] MEDS ORDERED: HOME MED LIST COMPLETE! XX SCH (09:30)
[2024-11-16 10:58] VITALS: BP 136/62; TEMP 97.9; O2SAT 99
[2024-11-16] MEDS: OVERDOSE RESCUE KIT XX SCH (11:19)
[2024-11-17] MEDS ORDERED: EPIP0.3I2 IM (09:09)
[2024-11-17] MEDS ORDERED: SUCR1TA PO (09:38)
[2024-11-17] MEDS ORDERED: ONDA-282 PO (09:38)
== END 2024-11-16 11:20 | disposition home or self-care (01) ==
LOC: M ED 19:06
DX: T40.411A Poisoning by fentanyl or fentanyl analogs, accidental (unintentional), initial encounter (principal); D64.9 Anemia, unspecified; Z86.79 Personal history of other diseases of the circulatory system; G47.33 Obstructive sleep apnea (adult) (pediatric); G40.909 Epilepsy, unspecified, not intractable, without status epilepticus; I27.9 Pulmonary heart disease, unspecified; E61.1 Iron deficiency; Z87.19 Personal history of other diseases of the digestive system; Z86.718 Personal history of other venous thrombosis and embolism; F20.9 Schizophrenia, unspecified; F43.10 Post-traumatic stress disorder, unspecified; F41.9 Anxiety disorder, unspecified; F32.A Depression, unspecified; F60.3 Borderline personality disorder; Z79.01 Long term (current) use of anticoagulants; Z79.899 Other long term (current) drug therapy; Z91.041 Radiographic dye allergy status; Z88.0 Allergy status to penicillin; Z91.013 Allergy to seafood; Z88.6 Allergy status to analgesic agent; Z88.8 Allergy status to other drugs, medicaments and biological substances; Z88.1 Allergy status to other antibiotic agents; Z91.040 Latex allergy status; Z91.02 Food additives allergy status; Z88.2 Allergy status to sulfonamides; Z88.5 Allergy status to narcotic agent

== ENCOUNTER 2024-11-16 18:37 | Emergency (ER) | payer OTHER ==
[~2024-11-16] VITALS: Ht 175.3 cm; Wt 122.7 kg
[2024-11-17] MEDS: ONDANSETRON 4MG ORAL DISINTEGRATING TAB PO ONE (08:28)
[2024-11-17 08:51] LABS: BASO # 0.0 10^3/uL (0.0-0.2); BASO % 0.2 % (0.0-1.0); EOS # 0.2 10^3/uL (0.0-0.5); EOS % 2.3 % (0.0-3.0); LYMPH # 0.9 10^3/uL (1.5-5.0); LYMPH % 11.2 % (24.0-44.0); MONO # 0.5 10^3/uL (0.0-0.8); MONO % 6.5 % (2.0-8.0); NEUTROPHILS # 6.5 10^3/uL (1.5-8.5); NEUTROPHILS % 79.6 % (36.0-66.0); PLATELET COUNT, AUTOMATED 281 10^3/uL (150-450)
[2024-11-17] MEDS ORDERED: EPIP0.3I2 IM (09:09)
[2024-11-17] MEDS ORDERED: HOME MED LIST COMPLETE! XX SCH (09:10)
[2024-11-17 09:17] LABS: ALT/SGPT 17 U/L (7.0-40); AST/SGOT 17 U/L (<34); CALCIUM LEVEL 8.8 MG/DL (8.5-10.1); CARBON DIOXIDE LEVEL 30 MMOL/L (20-31); CHLORIDE LEVEL 105 MMOL/L (98-107); CREATININE FOR GFR 0.64 MG/DL (0.55-1.30); GLOMERULAR FILTRATION RATE > 90.0 (>60); MAGNESIUM LEVEL 1.9 MG/DL (1.8-2.4); POTASSIUM SERUM 3.9 MMOL/L (3.5-5.1); SODIUM LEVEL 144 MMOL/L (136-145)
[2024-11-17 09:19] LABS: FREE T4 0.83 NG/DL (0.89-1.76)
[2024-11-17] MEDS ORDERED: ONDA-282 PO (09:38)
[2024-11-17] MEDS ORDERED: SUCR1TA PO (09:38)
[2024-11-17 09:49] VITALS: BP 134/63; TEMP 97.7; O2SAT 98
== END 2024-11-17 09:51 | disposition home or self-care (01) ==
LOC: M ED 18:37
DX: R11.2 Nausea with vomiting, unspecified (principal); E03.9 Hypothyroidism, unspecified; Z86.718 Personal history of other venous thrombosis and embolism; Z79.01 Long term (current) use of anticoagulants; Z79.899 Other long term (current) drug therapy; Z88.0 Allergy status to penicillin; Z88.6 Allergy status to analgesic agent; Z88.8 Allergy status to other drugs, medicaments and biological substances; Z88.1 Allergy status to other antibiotic agents; Z88.5 Allergy status to narcotic agent; Z88.2 Allergy status to sulfonamides; Z91.041 Radiographic dye allergy status; Z91.013 Allergy to seafood; Z91.040 Latex allergy status; Z91.02 Food additives allergy status

== ENCOUNTER 2024-11-17 22:09 | Emergency (ER) | payer OTHER ==
[~2024-11-17] VITALS: Ht 175.3 cm; Wt 181.9 kg
[2024-11-18 06:58] VITALS: BP 124/85; TEMP 97.5; O2SAT 96
== END 2024-11-18 06:59 | disposition home or self-care (01) ==
LOC: M ED 22:09
DX: Z02.79 Encounter for issue of other medical certificate (principal); G47.33 Obstructive sleep apnea (adult) (pediatric); Z86.718 Personal history of other venous thrombosis and embolism; Z79.01 Long term (current) use of anticoagulants; Z79.899 Other long term (current) drug therapy; Z88.0 Allergy status to penicillin; Z88.1 Allergy status to other antibiotic agents; Z88.5 Allergy status to narcotic agent; Z88.6 Allergy status to analgesic agent; Z91.041 Radiographic dye allergy status; Z91.040 Latex allergy status; Z91.02 Food additives allergy status; Z91.013 Allergy to seafood; Z88.2 Allergy status to sulfonamides

== ENCOUNTER 2024-11-18 21:00 | Emergency (ER) | payer OTHER ==
[~2024-11-18] VITALS: Ht 170.2 cm; Wt 200.0 kg
[2024-11-18] MEDS: CHARCOAL ACTIVATED LIQUID 25 GM/120 ML BTL PO ONE (21:57)
[2024-11-18 22:32] LABS: PLATELET COUNT, AUTOMATED 295 10^3/uL (150-450)
[2024-11-18 22:57] LABS: ETHYL ALCOHOL (ETHANOL) < 0.003 % (0.000-0.010)
[2024-11-18 22:59] LABS: SALICYLATE LEVEL < 3.0 MG/DL (<30)
[2024-11-18 23:20] LABS: ALT/SGPT 18 U/L (7.0-40); AST/SGOT 14 U/L (<34); CALCIUM LEVEL 8.9 MG/DL (8.5-10.1); CARBON DIOXIDE LEVEL 30 MMOL/L (20-31); CHLORIDE LEVEL 106 MMOL/L (98-107); CREATININE FOR GFR 0.81 MG/DL (0.55-1.30); GLOMERULAR FILTRATION RATE > 90.0 (>60); POTASSIUM SERUM 4.1 MMOL/L (3.5-5.1); SODIUM LEVEL 145 MMOL/L (136-145)
[2024-11-19 02:35] LABS: AMPHETAMINES LEVEL URINE NEGATIVE (NEGATIVE); BARBITURATES URINE NEGATIVE (NEGATIVE); CANNABINOIDS URINE NEGATIVE (NEGATIVE); COCAINE METABOLITE URINE NEGATIVE (NEGATIVE); METHADONE URINE NEGATIVE (NEGATIVE); OPIATES URINE NEGATIVE (NEGATIVE); PHENCYCLIDINE URINE NEGATIVE (NEGATIVE)
[2024-11-19 03:37] LABS: BENZODIAZEPINES URINE POSITIVE (NEGATIVE)
[2024-11-19 15:26] VITALS: BP 108/51; TEMP 98; O2SAT 98
== END 2024-11-19 16:02 | disposition left against medical advice (07) ==
LOC: M ED 21:00
DX: Z03.6 Encounter for observation for suspected toxic effect from ingested substance ruled out (principal); F43.21 Adjustment disorder with depressed mood; Z53.9 Procedure and treatment not carried out, unspecified reason; F60.3 Borderline personality disorder; Z76.5 Malingerer [conscious simulation]; F32.A Depression, unspecified; E07.9 Disorder of thyroid, unspecified; Z79.899 Other long term (current) drug therapy; Z79.01 Long term (current) use of anticoagulants; Z88.0 Allergy status to penicillin; Z88.6 Allergy status to analgesic agent; Z88.1 Allergy status to other antibiotic agents; Z88.5 Allergy status to narcotic agent; Z88.2 Allergy status to sulfonamides; Z91.041 Radiographic dye allergy status; Z91.013 Allergy to seafood; Z91.040 Latex allergy status; Z91.02 Food additives allergy status

== ENCOUNTER 2024-11-19 20:04 | Emergency (ER) | payer OTHER ==
[~2024-11-19] VITALS: Ht 175.3 cm; Wt 181.1 kg
[2024-11-20 03:17] LABS: BASO # 0.0 10^3/uL (0.0-0.2); BASO % 0.4 % (0.0-1.0); EOS # 0.3 10^3/uL (0.0-0.5); EOS % 3.4 % (0.0-3.0); LYMPH # 1.3 10^3/uL (1.5-5.0); LYMPH % 16.7 % (24.0-44.0); MONO # 0.6 10^3/uL (0.0-0.8); MONO % 7.3 % (2.0-8.0); NEUTROPHILS # 5.7 10^3/uL (1.5-8.5); NEUTROPHILS % 71.9 % (36.0-66.0); PLATELET COUNT, AUTOMATED 299 10^3/uL (150-450)
[2024-11-20 03:48] LABS: CALCIUM LEVEL 8.6 MG/DL (8.5-10.1); CARBON DIOXIDE LEVEL 28 MMOL/L (20-31); CHLORIDE LEVEL 108 MMOL/L (98-107); CREATININE FOR GFR 0.70 MG/DL (0.55-1.30); GLOMERULAR FILTRATION RATE > 90.0 (>60); POTASSIUM SERUM 4.3 MMOL/L (3.5-5.1); SODIUM LEVEL 145 MMOL/L (136-145)
[2024-11-20 04:25] LABS: HCG, SERUM QUALITATIVE NEGATIVE (NEGATIVE)
[2024-11-20 08:38] VITALS: BP 107/75; TEMP 98.7; O2SAT 100
== END 2024-11-20 08:43 | disposition home or self-care (01) ==
LOC: M ED 20:04
DX: R07.89 Other chest pain (principal); K59.00 Constipation, unspecified; I50.9 Heart failure, unspecified; E11.9 Type 2 diabetes mellitus without complications; E07.9 Disorder of thyroid, unspecified; Z86.718 Personal history of other venous thrombosis and embolism; R56.9 Unspecified convulsions; F32.A Depression, unspecified; Z79.899 Other long term (current) drug therapy; Z88.0 Allergy status to penicillin; Z88.6 Allergy status to analgesic agent; Z88.1 Allergy status to other antibiotic agents; Z88.5 Allergy status to narcotic agent; Z88.2 Allergy status to sulfonamides; Z91.041 Radiographic dye allergy status; Z91.040 Latex allergy status; Z91.02 Food additives allergy status; Z91.013 Allergy to seafood

== ENCOUNTER 2024-11-22 00:43 | Emergency (ER) | payer OTHER ==
[~2024-11-22] VITALS: Ht 170.2 cm; Wt 181.1 kg
[2024-11-22 02:06] LABS: PLATELET COUNT, AUTOMATED 303 10^3/uL (150-450)
[2024-11-22 02:26] LABS: AMPHETAMINES LEVEL URINE NEGATIVE (NEGATIVE); BARBITURATES URINE NEGATIVE (NEGATIVE); COCAINE METABOLITE URINE NEGATIVE (NEGATIVE)
[2024-11-22 02:27] LABS: CANNABINOIDS URINE NEGATIVE (NEGATIVE); METHADONE URINE NEGATIVE (NEGATIVE); OPIATES URINE NEGATIVE (NEGATIVE); PHENCYCLIDINE URINE NEGATIVE (NEGATIVE)
[2024-11-22 02:29] LABS: BENZODIAZEPINES URINE POSITIVE (NEGATIVE)
[2024-11-22 02:30] LABS: SALICYLATE LEVEL < 3.0 MG/DL (<30)
[2024-11-22 02:31] LABS: ALT/SGPT 16 U/L (7.0-40); AST/SGOT 14 U/L (<34); CALCIUM LEVEL 9.2 MG/DL (8.5-10.1); CARBON DIOXIDE LEVEL 28 MMOL/L (20-31); CHLORIDE LEVEL 106 MMOL/L (98-107); CREATININE FOR GFR 0.75 MG/DL (0.55-1.30); GLOMERULAR FILTRATION RATE > 90.0 (>60); POTASSIUM SERUM 4.1 MMOL/L (3.5-5.1); SODIUM LEVEL 144 MMOL/L (136-145)
[2024-11-22 02:53] LABS: HCG, SERUM QUALITATIVE NEGATIVE (NEGATIVE)
[2024-11-22 02:58] LABS: ETHYL ALCOHOL (ETHANOL) < 0.003 % (0.000-0.010)
[2024-11-22 06:04] LABS: FREE T4 0.79 NG/DL (0.89-1.76)
[2024-11-22 09:07] VITALS: BP 134/76; TEMP 97.1; O2SAT 99
[2024-11-23] MEDS ORDERED: BENZ200C70 PO (08:39)
[2024-11-23] MEDS ORDERED: MUCI600T31 PO (08:39)
== END 2024-11-22 09:16 | disposition home or self-care (01) ==
LOC: M ED 00:43
DX: F60.3 Borderline personality disorder (principal); Z91.51 Personal history of suicidal behavior; F31.30 Bipolar disorder, current episode depressed, mild or moderate severity, unspecified; F44.5 Conversion disorder with seizures or convulsions; Z76.5 Malingerer [conscious simulation]; G47.33 Obstructive sleep apnea (adult) (pediatric); F17.200 Nicotine dependence, unspecified, uncomplicated; Z79.01 Long term (current) use of anticoagulants; Z79.899 Other long term (current) drug therapy; Z88.0 Allergy status to penicillin; Z88.6 Allergy status to analgesic agent; Z88.8 Allergy status to other drugs, medicaments and biological substances; Z88.1 Allergy status to other antibiotic agents; Z88.5 Allergy status to narcotic agent; Z88.2 Allergy status to sulfonamides; Z91.041 Radiographic dye allergy status; Z91.040 Latex allergy status; Z91.013 Allergy to seafood; Z91.02 Food additives allergy status

== ENCOUNTER 2024-11-22 20:40 | Emergency (ER) | payer OTHER ==
[~2024-11-22] VITALS: Ht 175.3 cm; Wt 191.2 kg
[2024-11-22 20:42] VITALS: BP 136/84; TEMP 96.8; O2SAT 100
[2024-11-23] MEDS ORDERED: MUCI600T31 PO (08:39)
[2024-11-23] MEDS ORDERED: BENZ200C70 PO (08:39)
== END 2024-11-22 22:52 | disposition home or self-care (01) ==
LOC: M ED 20:40
DX: F60.3 Borderline personality disorder (principal); Z76.5 Malingerer [conscious simulation]; G47.33 Obstructive sleep apnea (adult) (pediatric); Z86.718 Personal history of other venous thrombosis and embolism; D50.9 Iron deficiency anemia, unspecified; Z87.19 Personal history of other diseases of the digestive system; F12.10 Cannabis abuse, uncomplicated; Z79.01 Long term (current) use of anticoagulants; Z79.899 Other long term (current) drug therapy; Z88.0 Allergy status to penicillin; Z88.1 Allergy status to other antibiotic agents; Z88.5 Allergy status to narcotic agent; Z88.6 Allergy status to analgesic agent; Z88.2 Allergy status to sulfonamides; Z91.041 Radiographic dye allergy status; Z91.040 Latex allergy status; Z91.013 Allergy to seafood; Z91.02 Food additives allergy status

== ENCOUNTER 2024-11-22 22:59 | Emergency (ER) | payer OTHER ==
[~2024-11-22] VITALS: Ht 175.3 cm; Wt 122.7 kg
[2024-11-23 07:45] VITALS: BP 137/68
[2024-11-23 08:35] VITALS: O2SAT 98
[2024-11-23] MEDS ORDERED: BENZ200C70 PO (08:39)
[2024-11-23] MEDS ORDERED: MUCI600T31 PO (08:39)
[2024-11-23 08:48] VITALS: TEMP 96
== END 2024-11-23 08:50 | disposition home or self-care (01) ==
LOC: M ED 11-23 06:51
DX: R05.2 Subacute cough (principal); Z79.01 Long term (current) use of anticoagulants; Z91.041 Radiographic dye allergy status; Z91.040 Latex allergy status; Z91.89 Other specified personal risk factors, not elsewhere classified; Z91.013 Allergy to seafood; Z88.0 Allergy status to penicillin; Z88.6 Allergy status to analgesic agent; Z88.8 Allergy status to other drugs, medicaments and biological substances; Z88.5 Allergy status to narcotic agent; Z88.2 Allergy status to sulfonamides

== ENCOUNTER 2024-11-27 12:58 | Emergency (ER) | payer OTHER ==
[~2024-11-27] VITALS: Ht 175.3 cm; Wt 183.5 kg
[~2024-11-27 12:58] MED LIST changes: +BENZ200C70 PO; +MUCI600T31 PO
[2024-11-27 16:00] VITALS: BP 104/63; O2SAT 96
[2024-11-27 16:09] VITALS: TEMP 98.2
== END 2024-11-27 16:44 | disposition left against medical advice (07) ==
LOC: M ED 12:58
DX: Z53.21 Procedure and treatment not carried out due to patient leaving prior to being seen by health care provider (principal)

== ENCOUNTER 2024-12-01 00:36 | Emergency (ER) | payer OTHER ==
[~2024-12-01] VITALS: Ht 175.3 cm; Wt 168.2 kg
[2024-12-01 01:57] LABS: BASO # 0.0 10^3/uL (0.0-0.2); BASO % 0.2 % (0.0-1.0); EOS # 0.2 10^3/uL (0.0-0.5); EOS % 2.1 % (0.0-3.0); LYMPH # 1.6 10^3/uL (1.5-5.0); LYMPH % 14.7 % (24.0-44.0); MONO # 0.8 10^3/uL (0.0-0.8); MONO % 7.1 % (2.0-8.0); NEUTROPHILS # 8.0 10^3/uL (1.5-8.5); NEUTROPHILS % 75.6 % (36.0-66.0); PLATELET COUNT, AUTOMATED 342 10^3/uL (150-450)
[2024-12-01 02:23] LABS: ALT/SGPT 17 U/L (7.0-40); AST/SGOT 14 U/L (<34); CALCIUM LEVEL 8.6 MG/DL (8.5-10.1); CARBON DIOXIDE LEVEL 29 MMOL/L (20-31); CHLORIDE LEVEL 106 MMOL/L (98-107); CK-MB VALUE MASS < 1.0 NG/ML (<3.6); CPK CREATINE PHOSPHOKINASE 68 U/L (34-145); CREATININE FOR GFR 0.82 MG/DL (0.55-1.30); GLOMERULAR FILTRATION RATE > 90.0 (>60); INR 0.98; POTASSIUM SERUM 4.0 MMOL/L (3.5-5.1); SODIUM LEVEL 144 MMOL/L (136-145)
[2024-12-01 04:36] LABS: CK-MB VALUE MASS < 1.0 NG/ML (<3.6)
[2024-12-01 04:37] LABS: CPK CREATINE PHOSPHOKINASE 59 U/L (34-145)
[2024-12-01] MEDS ORDERED: FERR324T21 PO (07:33)
[2024-12-01 07:39] VITALS: BP 117/58; TEMP 96.8; O2SAT 96
== END 2024-12-01 07:40 | disposition home or self-care (01) ==
LOC: M ED 00:36
DX: F60.3 Borderline personality disorder (principal); D50.9 Iron deficiency anemia, unspecified; Z91.199 Patient's noncompliance with other medical treatment and regimen due to unspecified reason; Z76.5 Malingerer [conscious simulation]; Z73.4 Inadequate social skills, not elsewhere classified; Z88.0 Allergy status to penicillin; Z88.1 Allergy status to other antibiotic agents; Z88.2 Allergy status to sulfonamides; Z88.6 Allergy status to analgesic agent; Z88.5 Allergy status to narcotic agent; Z91.041 Radiographic dye allergy status; Z79.899 Other long term (current) drug therapy

== ENCOUNTER 2024-12-02 17:32 | Emergency (ER) | payer OTHER ==
[~2024-12-02] VITALS: Ht 175.3 cm; Wt 122.7 kg
[~2024-12-02 17:32] MED LIST changes: +FERR324T21 PO
[2024-12-02 17:40] VITALS: TEMP 97.6
[2024-12-02] MEDS: IPRATROPIUM 0.5 MG/ALBUTEROL 2.5 MG INH SOL UD 3 ML NEB ONE (20:06)
[2024-12-02] MEDS: ONDANSETRON 4MG 2ML VIAL IV ONE (20:06)
[2024-12-02 20:10] LABS: BASO # 0.0 10^3/uL (0.0-0.2); BASO % 0.2 % (0.0-1.0); EOS # 0.3 10^3/uL (0.0-0.5); EOS % 2.6 % (0.0-3.0); LYMPH # 1.2 10^3/uL (1.5-5.0); LYMPH % 10.8 % (24.0-44.0); MONO # 0.7 10^3/uL (0.0-0.8); MONO % 6.2 % (2.0-8.0); NEUTROPHILS # 8.9 10^3/uL (1.5-8.5); NEUTROPHILS % 79.8 % (36.0-66.0); PLATELET COUNT, AUTOMATED 344 10^3/uL (150-450)
[2024-12-02 20:31] LABS: CK-MB VALUE MASS < 1.0 NG/ML (<3.6)
[2024-12-02 20:34] LABS: ALT/SGPT 19 U/L (7.0-40); AST/SGOT 15 U/L (<34); CALCIUM LEVEL 8.2 MG/DL (8.5-10.1); CARBON DIOXIDE LEVEL 26 MMOL/L (20-31); CHLORIDE LEVEL 105 MMOL/L (98-107); CPK CREATINE PHOSPHOKINASE 58 U/L (34-145); CREATININE FOR GFR 0.67 MG/DL (0.55-1.30); GLOMERULAR FILTRATION RATE > 90.0 (>60); HCG, SERUM QUALITATIVE NEGATIVE (NEGATIVE); POTASSIUM SERUM 4.0 MMOL/L (3.5-5.1); SODIUM LEVEL 139 MMOL/L (136-145)
[2024-12-02 21:05] VITALS: BP 127/57
[2024-12-02 21:34] LABS: CK-MB VALUE MASS < 1.0 NG/ML (<3.6)
[2024-12-02 21:35] LABS: CPK CREATINE PHOSPHOKINASE 50 U/L (34-145)
[2024-12-02 22:02] VITALS: O2SAT 100
== END 2024-12-02 22:16 | disposition home or self-care (01) ==
LOC: M ED 17:32 → EDBD 17:32 → M ED 22:16
DX: J20.6 Acute bronchitis due to rhinovirus (principal); R00.0 Tachycardia, unspecified; F41.9 Anxiety disorder, unspecified; F32.A Depression, unspecified; G47.30 Sleep apnea, unspecified; G40.909 Epilepsy, unspecified, not intractable, without status epilepticus; Z86.718 Personal history of other venous thrombosis and embolism; Z79.52 Long term (current) use of systemic steroids; Z79.83 Long term (current) use of bisphosphonates; Z79.899 Other long term (current) drug therapy; Z88.0 Allergy status to penicillin; Z88.1 Allergy status to other antibiotic agents; Z88.2 Allergy status to sulfonamides; Z88.5 Allergy status to narcotic agent; Z88.6 Allergy status to analgesic agent; Z91.013 Allergy to seafood; Z91.041 Radiographic dye allergy status
CPT/HCPCS: 71046; 80048; 80076; 82550; 82553; 84484; 84703; 85025; 87486; 87581; 87633; 87798; 93005; 93041; 94760; 96374; 99285; J2405

== ENCOUNTER 2024-12-05 18:49 | Emergency (ER) | payer OTHER ==
[~2024-12-05] VITALS: Ht 172.7 cm; Wt 182.0 kg
[2024-12-06 06:13] VITALS: BP 177/93; TEMP 97; O2SAT 94
[2024-12-06] MEDS ORDERED: BENZ200C70 PO (07:07)
== END 2024-12-06 07:53 | disposition home or self-care (01) ==
LOC: M ED 18:49 → EDBD 18:49 → M ED 12-06 07:53
DX: S93.402A Sprain of unspecified ligament of left ankle, initial encounter (principal); W10.9XXA Fall (on) (from) unspecified stairs and steps, initial encounter; Y92.009 Unspecified place in unspecified non-institutional (private) residence as the place of occurrence of the external cause; Y93.9 Activity, unspecified; Y99.9 Unspecified external cause status; E03.9 Hypothyroidism, unspecified; G47.33 Obstructive sleep apnea (adult) (pediatric); Z88.0 Allergy status to penicillin; Z88.1 Allergy status to other antibiotic agents; Z88.5 Allergy status to narcotic agent; Z88.6 Allergy status to analgesic agent; Z88.8 Allergy status to other drugs, medicaments and biological substances; Z91.041 Radiographic dye allergy status; Z91.040 Latex allergy status; Z79.899 Other long term (current) drug therapy; Z98.890 Other specified postprocedural states

== ENCOUNTER → 2024-12-06 | Outpatient (CLI) | payer OTHER ==
[2024-12-06 09:24] LABS: BASO # 0.0 10^3/uL (0.0-0.2); BASO % 0.1 % (0.0-1.0); EOS # 0.3 10^3/uL (0.0-0.5); EOS % 3.6 % (0.0-3.0); LYMPH # 1.1 10^3/uL (1.5-5.0); LYMPH % 12.3 % (24.0-44.0); MONO # 0.7 10^3/uL (0.0-0.8); MONO % 7.9 % (2.0-8.0); NEUTROPHILS # 6.4 10^3/uL (1.5-8.5); NEUTROPHILS % 75.6 % (36.0-66.0); PLATELET COUNT, AUTOMATED 358 10^3/uL (150-450)
[2024-12-06 09:49] LABS: ALT/SGPT 23 U/L (7.0-40); AST/SGOT 17 U/L (<34); CALCIUM LEVEL 8.9 MG/DL (8.5-10.1); CARBON DIOXIDE LEVEL 28 MMOL/L (20-31); CHLORIDE LEVEL 104 MMOL/L (98-107); CREATININE FOR GFR 0.64 MG/DL (0.55-1.30); GLOMERULAR FILTRATION RATE > 90.0 (>60); IRON (FE) 12 UG/DL (50-170); MAGNESIUM LEVEL 2.0 MG/DL (1.8-2.4); POTASSIUM SERUM 4.2 MMOL/L (3.5-5.1); SODIUM LEVEL 139 MMOL/L (136-145)
[2024-12-06 09:50] LABS: PERCENT SATURATION 4.3 % (13.2-45.0)
[2024-12-06 09:51] LABS: FREE T4 0.74 NG/DL (0.89-1.76)
[2024-12-06 09:52] LABS: TOTAL 25(OH) VITAMIN D 16.4 NG/ML (20.0-100.0); VITAMIN B12 LEVEL 463 PG/ML (211-911)
[2024-12-06 13:27] LABS: ESTIMATED AVERAGE GLUCOSE 126.0 MG/DL (60-110)
== END ==
LOC: M LAB 08:13
PROVIDERS: ATTEND Nurse Practitioner Psychiatric/Mental Health
DX: F41.1 Generalized anxiety disorder (principal); Z79.899 Other long term (current) drug therapy; E61.1 Iron deficiency

== ENCOUNTER 2024-12-12 01:03 | Emergency (ER) | payer OTHER ==
[~2024-12-12] VITALS: Ht 175.3 cm; Wt 182.0 kg
[2024-12-12 02:28] LABS: VENOUS BASE EXCESS 2.1 (-2.0-2.0); VENOUS HCO3 28.0 MMOL/L (23.0-27.0); VENOUS O2 SATURATION 92.8 % (60.0-80.0); VENOUS PARTIAL PRESSURE CO2 50.4 mmHg (38.0-50.0); VENOUS PARTIAL PRESSURE O2 76.4 mmHg (30.0-50.0); VENOUS PH 7.363 UNITS (7.330-7.430); VENOUS STANDARD HCO3 26.2 MMOL/L; VENOUS TOTAL CO2 29.6 MMOL/L (24.0-28.0)
[2024-12-12 02:32] LABS: BASO # 0.0 10^3/uL (0.0-0.2); BASO % 0.4 % (0.0-1.0); EOS # 0.3 10^3/uL (0.0-0.5); EOS % 3.1 % (0.0-3.0); LYMPH # 1.8 10^3/uL (1.5-5.0); LYMPH % 16.0 % (24.0-44.0); MONO # 0.9 10^3/uL (0.0-0.8); MONO % 8.4 % (2.0-8.0); NEUTROPHILS # 8.0 10^3/uL (1.5-8.5); NEUTROPHILS % 71.7 % (36.0-66.0); PLATELET COUNT, AUTOMATED 365 10^3/uL (150-450)
[2024-12-12 03:01] LABS: ALT/SGPT 14 U/L (7.0-40); AST/SGOT 12 U/L (<34); CALCIUM LEVEL 8.5 MG/DL (8.5-10.1); CARBON DIOXIDE LEVEL 28 MMOL/L (20-31); CHLORIDE LEVEL 106 MMOL/L (98-107); CPK CREATINE PHOSPHOKINASE 91 U/L (34-145); CREATININE FOR GFR 0.69 MG/DL (0.55-1.30); GLOMERULAR FILTRATION RATE > 90.0 (>60); POTASSIUM SERUM 4.3 MMOL/L (3.5-5.1); SALICYLATE LEVEL < 3.0 MG/DL (<30); SODIUM LEVEL 142 MMOL/L (136-145)
[2024-12-12 03:08] LABS: ETHYL ALCOHOL (ETHANOL) < 0.003 % (0.000-0.010)
[2024-12-12 03:11] LABS: HCG, SERUM QUALITATIVE NEGATIVE (NEGATIVE)
[2024-12-12 04:45] LABS: AMPHETAMINES LEVEL URINE NEGATIVE (NEGATIVE); BARBITURATES URINE NEGATIVE (NEGATIVE); COCAINE METABOLITE URINE NEGATIVE (NEGATIVE)
[2024-12-12 04:46] LABS: CANNABINOIDS URINE NEGATIVE (NEGATIVE); METHADONE URINE NEGATIVE (NEGATIVE); OPIATES URINE NEGATIVE (NEGATIVE); PHENCYCLIDINE URINE NEGATIVE (NEGATIVE)
[2024-12-12 04:47] LABS: BENZODIAZEPINES URINE POSITIVE (NEGATIVE)
[2024-12-12 10:27] VITALS: BP 130/78; TEMP 97.6; O2SAT 96
== END 2024-12-12 10:28 | disposition home or self-care (01) ==
LOC: M ED 01:03
DX: F41.9 Anxiety disorder, unspecified (principal); F60.3 Borderline personality disorder; F32.A Depression, unspecified; E07.9 Disorder of thyroid, unspecified; J45.909 Unspecified asthma, uncomplicated; K21.9 Gastro-esophageal reflux disease without esophagitis; G47.33 Obstructive sleep apnea (adult) (pediatric); Z86.718 Personal history of other venous thrombosis and embolism; F20.9 Schizophrenia, unspecified; F43.10 Post-traumatic stress disorder, unspecified; Z91.51 Personal history of suicidal behavior; E66.9 Obesity, unspecified; Z79.01 Long term (current) use of anticoagulants; C92.01 Acute myeloblastic leukemia, in remission; Z76.5 Malingerer [conscious simulation]; G40.909 Epilepsy, unspecified, not intractable, without status epilepticus

== ENCOUNTER 2024-12-20 17:34 | Emergency (ER) | payer OTHER ==
[~2024-12-20] VITALS: Ht 175.3 cm; Wt 113.6 kg
[~2024-12-20 17:34] MED LIST changes: +EPIP0.3I2 INJ
[2024-12-20 17:40] VITALS: TEMP 97.3
[2024-12-20 20:30] VITALS: BP 122/72; O2SAT 96
[2024-12-20] MEDS ORDERED: VENTAER INH (21:25)
[2024-12-20] MEDS ORDERED: BREAMIS10 MC (21:25)
== END 2024-12-20 21:36 | disposition home or self-care (01) ==
LOC: M ED 17:34 → EDBD 17:34 → M ED 21:36
DX: R06.02 Shortness of breath (principal); Z87.01 Personal history of pneumonia (recurrent); Z86.79 Personal history of other diseases of the circulatory system; Z79.01 Long term (current) use of anticoagulants; Z79.899 Other long term (current) drug therapy; Z88.0 Allergy status to penicillin; Z88.6 Allergy status to analgesic agent; Z88.1 Allergy status to other antibiotic agents; Z88.5 Allergy status to narcotic agent; Z88.2 Allergy status to sulfonamides; Z91.040 Latex allergy status; Z91.041 Radiographic dye allergy status

== ENCOUNTER 2024-12-21 23:30 | Inpatient (IN) | payer OTHER ==
[~2024-12-21] VITALS: Ht 175.3 cm; Wt 163.0 kg
[~2024-12-21 23:30] MED LIST changes: +BREAMIS10 MC
[2024-12-22 00:33] LABS: PLATELET COUNT, AUTOMATED 378 10^3/uL (150-450)
[2024-12-22 00:52] LABS: ETHYL ALCOHOL (ETHANOL) < 0.003 % (0.000-0.010)
[2024-12-22 00:54] LABS: ALT/SGPT 26 U/L (7.0-40); AST/SGOT 15 U/L (<34); CALCIUM LEVEL 8.6 MG/DL (8.5-10.1); CARBON DIOXIDE LEVEL 33 MMOL/L (20-31); CHLORIDE LEVEL 101 MMOL/L (98-107); CREATININE FOR GFR 0.69 MG/DL (0.55-1.30); GLOMERULAR FILTRATION RATE > 90.0 (>60); POTASSIUM SERUM 4.1 MMOL/L (3.5-5.1); SALICYLATE LEVEL < 3.0 MG/DL (<30); SODIUM LEVEL 138 MMOL/L (136-145)
[2024-12-22 01:04] LABS: AMPHETAMINES LEVEL URINE NEGATIVE (NEGATIVE); BARBITURATES URINE NEGATIVE (NEGATIVE); COCAINE METABOLITE URINE NEGATIVE (NEGATIVE); METHADONE URINE NEGATIVE (NEGATIVE)
[2024-12-22 01:05] LABS: CANNABINOIDS URINE NEGATIVE (NEGATIVE); OPIATES URINE NEGATIVE (NEGATIVE); PHENCYCLIDINE URINE NEGATIVE (NEGATIVE)
[2024-12-22 01:08] LABS: BENZODIAZEPINES URINE POSITIVE (NEGATIVE)
[2024-12-22] MEDS ORDERED: MOM 30 ML SUSPENSION UDC PO PRN (10:10)
[2024-12-22] MEDS ORDERED: HALOPERIDOL 5 MG TAB PO PRN (10:10)
[2024-12-22] MEDS ORDERED: MAALOX 30 ML SUSP *UDC PO PRN (10:10)
[2024-12-22] MEDS ORDERED: DIAZ10TA2 PO (11:17)
[2024-12-22] MEDS ORDERED: FERR324T21 PO (11:17)
[2024-12-22] MEDS ORDERED: HOME MED LIST COMPLETE! XX SCH (11:20)
[2024-12-22] MEDS ORDERED: INVE234I IM (11:20)
[2024-12-22 21:54] VITALS: BP 105/51; TEMP 97.5; O2SAT 96
[2024-12-22] MEDS: traZODone 50 MG TAB PO PRN (22:04)
[2024-12-23] MEDS ORDERED: **SFRHE** EPINEPHrine (EPIPEN) 0.3MG/0.3ML SYRINGE INJ PRN (01:50)
[2024-12-23] MEDS: LEVOTHYROXINE 125 MCG TABLET (0.125 MG) PO SCH (06:00)
[2024-12-23 06:58] VITALS: BP 127/64; TEMP 96.8; O2SAT 96
[2024-12-23 08:46] LABS: FREE T4 0.97 NG/DL (0.89-1.76)
[2024-12-23] MEDS: NICOTINE 14 MG/24 HR TRANSDERMAL TD SCH (09:00)
[2024-12-23] MEDS: FERROUS GLUCONATE 324 MG TAB PO SCH (09:00)
[2024-12-23] MEDS: PREGABALIN 25 MG CAP PO SCH (09:50)
[2024-12-23] MEDS: LORazepam 1 MG TAB PO PRN (15:36)
[2024-12-23 15:42] VITALS: BP 117/62; TEMP 97.7; O2SAT 98
[2024-12-23] MEDS: RAMELTEON 8 MG TAB PO SCH (20:59)
[2024-12-23] MEDS ORDERED: LURASIDONE HCL 20 MG TAB PO SCH (21:00)
[2024-12-24] MEDS: ALBUTEROL 90 MCG/ACT 8 GM HFA INHALER INH PRN (04:24)
[2024-12-24 10:44] VITALS: BP 125/82; TEMP 96.8; O2SAT 98
[2024-12-24 15:54] VITALS: BP 127/66; TEMP 97.3; O2SAT 97
[2024-12-25 06:46] VITALS: BP 125/88; TEMP 96.5; O2SAT 95
== END 2024-12-25 13:21 | disposition home or self-care (01) | DRG 750 ==
LOC: M ED 23:30 → M ED INP 12-22 10:10 → M PSY 12-22 21:00
PROVIDERS: ADMIT Internal Medicine; ATTEND Internal Medicine
DX: F25.0 Schizoaffective disorder, bipolar type (principal); I67.1 Cerebral aneurysm, nonruptured; I27.20 Pulmonary hypertension, unspecified; G40.909 Epilepsy, unspecified, not intractable, without status epilepticus; R45.851 Suicidal ideations; F41.9 Anxiety disorder, unspecified; F60.3 Borderline personality disorder; F43.10 Post-traumatic stress disorder, unspecified; E03.9 Hypothyroidism, unspecified; E66.813 Obesity, class 3; D50.9 Iron deficiency anemia, unspecified; R07.89 Other chest pain; G47.33 Obstructive sleep apnea (adult) (pediatric); M25.562 Pain in left knee; G89.29 Other chronic pain; Z56.0 Unemployment, unspecified; Z65.3 Problems related to other legal circumstances; Z79.890 Hormone replacement therapy; Z79.899 Other long term (current) drug therapy; Z88.0 Allergy status to penicillin; Z88.1 Allergy status to other antibiotic agents; Z88.5 Allergy status to narcotic agent; Z88.6 Allergy status to analgesic agent; Z88.2 Allergy status to sulfonamides; Z91.51 Personal history of suicidal behavior; Z88.8 Allergy status to other drugs, medicaments and biological substances; Z91.013 Allergy to seafood; Z91.041 Radiographic dye allergy status; Z91.048 Other nonmedicinal substance allergy status; Z86.718 Personal history of other venous thrombosis and embolism; Z90.49 Acquired absence of other specified parts of digestive tract; Z91.040 Latex allergy status; Z79.01 Long term (current) use of anticoagulants

== ENCOUNTER 2024-12-28 20:44 | Emergency (ER) | payer OTHER ==
[~2024-12-28] VITALS: Ht 175.3 cm; Wt 188.0 kg
[~2024-12-28 20:44] MED LIST changes: +DIAZ10TA2 PO; +INVE234I IM
[2024-12-28 22:11] LABS: BASO # 0.0 10^3/uL (0.0-0.2); BASO % 0.3 % (0.0-1.0); EOS # 0.3 10^3/uL (0.0-0.5); EOS % 2.6 % (0.0-3.0); LYMPH # 1.2 10^3/uL (1.5-5.0); LYMPH % 10.4 % (24.0-44.0); MONO # 0.9 10^3/uL (0.0-0.8); MONO % 7.3 % (2.0-8.0); NEUTROPHILS # 9.4 10^3/uL (1.5-8.5); NEUTROPHILS % 78.8 % (36.0-66.0); PLATELET COUNT, AUTOMATED 311 10^3/uL (150-450)
[2024-12-28 22:25] LABS: INR 0.96
[2024-12-28 22:34] LABS: HCG, SERUM QUALITATIVE NEGATIVE (NEGATIVE)
[2024-12-28 22:36] LABS: ALT/SGPT 67 U/L (7.0-40); AST/SGOT 34 U/L (<34); CALCIUM LEVEL 8.5 MG/DL (8.5-10.1); CARBON DIOXIDE LEVEL 30 MMOL/L (20-31); CHLORIDE LEVEL 102 MMOL/L (98-107); CREATININE FOR GFR 0.72 MG/DL (0.55-1.30); GLOMERULAR FILTRATION RATE > 90.0 (>60); POTASSIUM SERUM 4.0 MMOL/L (3.5-5.1); SODIUM LEVEL 141 MMOL/L (136-145)
[2024-12-29] MEDS: PANTOPRAZOLE 40MG TAB PO ONE (03:00)
[2024-12-29 03:10] LABS: PLATELET COUNT, AUTOMATED 287 10^3/uL (150-450)
[2024-12-29 06:40] VITALS: BP 144/69; TEMP 98.6; O2SAT 98
== END 2024-12-29 06:40 | disposition home or self-care (01) ==
LOC: M ED 20:44
DX: G89.29 Other chronic pain (principal); R10.9 Unspecified abdominal pain; G47.33 Obstructive sleep apnea (adult) (pediatric); Z86.718 Personal history of other venous thrombosis and embolism; Z91.199 Patient's noncompliance with other medical treatment and regimen due to unspecified reason; Z79.899 Other long term (current) drug therapy; Z88.0 Allergy status to penicillin; Z88.5 Allergy status to narcotic agent; Z88.6 Allergy status to analgesic agent; Z88.2 Allergy status to sulfonamides; Z88.8 Allergy status to other drugs, medicaments and biological substances; Z91.041 Radiographic dye allergy status

== ENCOUNTER 2024-12-29 14:02 | Emergency (ER) | payer OTHER ==
[~2024-12-29] VITALS: Ht 175.3 cm; Wt 188.0 kg
[2024-12-29 14:12] VITALS: BP 159/98; TEMP 97; O2SAT 99
[2024-12-29 17:22] LABS: BASO # 0.0 10^3/uL (0.0-0.2); BASO % 0.3 % (0.0-1.0); EOS # 0.3 10^3/uL (0.0-0.5); EOS % 2.7 % (0.0-3.0); LYMPH # 1.1 10^3/uL (1.5-5.0); LYMPH % 11.1 % (24.0-44.0); MONO # 0.7 10^3/uL (0.0-0.8); MONO % 6.3 % (2.0-8.0); NEUTROPHILS # 8.1 10^3/uL (1.5-8.5); NEUTROPHILS % 79.1 % (36.0-66.0); PLATELET COUNT, AUTOMATED 315 10^3/uL (150-450)
== END 2024-12-29 18:53 | disposition home or self-care (01) ==
LOC: EDBD 14:02 → M ED 14:02
DX: R10.85 Abdominal pain of multiple sites (principal); E11.9 Type 2 diabetes mellitus without complications; I10 Essential (primary) hypertension; F12.90 Cannabis use, unspecified, uncomplicated; R00.0 Tachycardia, unspecified; Z91.041 Radiographic dye allergy status; Z88.0 Allergy status to penicillin; Z91.013 Allergy to seafood; Z88.5 Allergy status to narcotic agent; Z88.6 Allergy status to analgesic agent; Z91.040 Latex allergy status; Z88.2 Allergy status to sulfonamides; Z79.890 Hormone replacement therapy; Z79.899 Other long term (current) drug therapy

== ENCOUNTER 2025-01-01 15:59 | Emergency (ER) | payer OTHER ==
[~2025-01-01] VITALS: Ht 175.3 cm; Wt 185.0 kg
[2025-01-01 18:04] LABS: BASO # 0.0 10^3/uL (0.0-0.2); BASO % 0.3 % (0.0-1.0); EOS # 0.3 10^3/uL (0.0-0.5); EOS % 2.3 % (0.0-3.0); LYMPH # 1.3 10^3/uL (1.5-5.0); LYMPH % 10.9 % (24.0-44.0); MONO # 0.7 10^3/uL (0.0-0.8); MONO % 6.3 % (2.0-8.0); NEUTROPHILS # 9.3 10^3/uL (1.5-8.5); NEUTROPHILS % 79.9 % (36.0-66.0); PLATELET COUNT, AUTOMATED 349 10^3/uL (150-450)
[2025-01-01 18:18] LABS: INR 0.99
[2025-01-01 18:43] VITALS: TEMP 98.3
[2025-01-01 18:43] LABS: ALT/SGPT 48 U/L (7.0-40); AST/SGOT 33 U/L (<34); CALCIUM LEVEL 9.0 MG/DL (8.5-10.1); CARBON DIOXIDE LEVEL 29 MMOL/L (20-31); CHLORIDE LEVEL 102 MMOL/L (98-107); CREATININE FOR GFR 0.67 MG/DL (0.55-1.30); GLOMERULAR FILTRATION RATE > 90.0 (>60); POTASSIUM SERUM 4.3 MMOL/L (3.5-5.1); SODIUM LEVEL 142 MMOL/L (136-145)
[2025-01-02 00:14] VITALS: O2SAT 92
[2025-01-02 01:01] VITALS: BP 135/65
[2025-01-02 03:01] LABS: PLATELET COUNT, AUTOMATED 335 10^3/uL (150-450)
== END 2025-01-02 03:47 | disposition home or self-care (01) ==
LOC: EDBD 15:59 → M ED 15:59
DX: G89.29 Other chronic pain (principal); R10.9 Unspecified abdominal pain; Z76.5 Malingerer [conscious simulation]; Z88.0 Allergy status to penicillin; Z88.1 Allergy status to other antibiotic agents; Z88.5 Allergy status to narcotic agent; Z88.2 Allergy status to sulfonamides; Z88.6 Allergy status to analgesic agent; Z88.8 Allergy status to other drugs, medicaments and biological substances; Z91.041 Radiographic dye allergy status; Z91.040 Latex allergy status; Z79.899 Other long term (current) drug therapy

== ENCOUNTER 2025-01-04 23:34 | Emergency (ER) | payer OTHER ==
[~2025-01-04] VITALS: Ht 175.3 cm; Wt 186.4 kg
[2025-01-05 06:05] VITALS: BP 130/67; TEMP 97.1; O2SAT 99
== END 2025-01-05 07:30 | disposition left against medical advice (07) ==
LOC: M ED 23:34
DX: Z53.21 Procedure and treatment not carried out due to patient leaving prior to being seen by health care provider (principal)

== ENCOUNTER 2025-01-06 02:23 | Inpatient (IN) | payer OTHER ==
[~2025-01-06] VITALS: Ht 175.3 cm; Wt 189.5 kg
[2025-01-06] VITALS (76 sets, daily range): BP systolic 76–168; BP diastolic 40–132; TEMP 97.1–98.3; O2SAT 91–100
[2025-01-06 03:13] LABS: BASO # 0.0 10^3/uL (0.0-0.2); BASO % 0.3 % (0.0-1.0); EOS # 0.2 10^3/uL (0.0-0.5); EOS % 2.7 % (0.0-3.0); LYMPH # 1.4 10^3/uL (1.5-5.0); LYMPH % 16.7 % (24.0-44.0); MONO # 0.7 10^3/uL (0.0-0.8); MONO % 8.5 % (2.0-8.0); NEUTROPHILS # 6.2 10^3/uL (1.5-8.5); NEUTROPHILS % 71.5 % (36.0-66.0); PLATELET COUNT, AUTOMATED 322 10^3/uL (150-450)
[2025-01-06 03:32] LABS: ETHYL ALCOHOL (ETHANOL) < 0.003 % (0.000-0.010)
[2025-01-06 03:33] LABS: SALICYLATE LEVEL < 3.0 MG/DL (<30)
[2025-01-06 03:34] LABS: ALT/SGPT 20 U/L (7.0-40); AST/SGOT 13 U/L (<34); CALCIUM LEVEL 8.5 MG/DL (8.5-10.1); CARBON DIOXIDE LEVEL 29 MMOL/L (20-31); CHLORIDE LEVEL 108 MMOL/L (98-107); CPK CREATINE PHOSPHOKINASE 81 U/L (34-145); CREATININE FOR GFR 0.76 MG/DL (0.55-1.30); GLOMERULAR FILTRATION RATE > 90.0 (>60); POTASSIUM SERUM 4.1 MMOL/L (3.5-5.1); SODIUM LEVEL 145 MMOL/L (136-145)
[2025-01-06] MEDS ORDERED: CHARCOAL ACTIVATED LIQUID 25 GM/120 ML BTL PO ONE (04:20)
[2025-01-06] MEDS: ROCURONIUM BROMIDE 50MG/5ML VIAL IV SCH ×2 (05:08→05:45)
[2025-01-06] MEDS: ETOMIDATE 20 MG/10 ML VIAL IV STA (05:10)
[2025-01-06] MEDS: CHARCOAL ACTIVATED LIQUID 25 GM/120 ML BTL NG ONE (05:13)
[2025-01-06] MEDS ORDERED: dexmedeTOMIDine (4 MCG/ML) 200 MCG/50 ML BTL As Ordered ONE (05:34)
[2025-01-06 05:41] LABS: INR 0.97
[2025-01-06] MEDS: DEXMEDETOMIDINE IV ONE (05:43)
[2025-01-06] MEDS: dexmedeTOMidine 200 MCG in IV 1 EA IV SCH (06:03)
[2025-01-06 06:11] LABS: AMPHETAMINES LEVEL URINE NEGATIVE (NEGATIVE); BARBITURATES URINE NEGATIVE (NEGATIVE)
[2025-01-06 06:12] LABS: BENZODIAZEPINES URINE POSITIVE (NEGATIVE); CANNABINOIDS URINE NEGATIVE (NEGATIVE); COCAINE METABOLITE URINE NEGATIVE (NEGATIVE); METHADONE URINE NEGATIVE (NEGATIVE); OPIATES URINE NEGATIVE (NEGATIVE); PHENCYCLIDINE URINE NEGATIVE (NEGATIVE)
[2025-01-06] MEDS: NS (Normal Saline) 0.9% 1,000 ML IV ONE (06:19)
[2025-01-06] MEDS ORDERED: GLUCOSE 4 GM CHEW PO PRN (06:35)
[2025-01-06] MEDS ORDERED: GLUCAGON INJ 1 MG VIAL SC PRN (06:35)
[2025-01-06] MEDS ORDERED: DEXTROSE 50% 50 ML SYRINGE IV PRN (06:35)
[2025-01-06] MEDS ORDERED: HOME MED LIST COMPLETE! XX SCH (07:15)
[2025-01-06] MEDS: LEVOTHYROXINE 100 MCG (0.1 MG) 5ML SDV PF (SOLUTION FORM) IV SCH (07:18)
[2025-01-06] MEDS ORDERED: FENTANYL DRIP LOCK BOX KEY 1 EACH XX PRN (07:35)
[2025-01-06] MEDS: fentaNYL CITRATE/NaCl 1,000 MCG in IV 1 EA IV SCH (07:55)
[2025-01-06] MEDS: LR 1,000 ML IV SCH (07:56)
[2025-01-06 08:49] LABS: ESTIMATED AVERAGE GLUCOSE 117.0 MG/DL (60-110)
[2025-01-06] MEDS ORDERED: VANCOMYCIN HCL 1,000 MG in IV FLUID PLACE HOLDER 1 EA IV ONE (08:50)
[2025-01-06] MEDS ORDERED: CHARCOAL ACTIVATED LIQUID 25 GM/120 ML BTL PO SCH (09:00)
[2025-01-06 09:25] LABS: ABG BASE EXCESS 1.4 (-2.0-2.0); ABG HCO3 27.5 MMOL/L (22.0-26.0); ABG O2 SATURATION 95.7 % (95.0-99.0); ABG PARTIAL PRESSURE CO2 52.0 mmHg (35.0-45.0); ABG PARTIAL PRESSURE O2 90.4 mmHg (75.0-100.0); ABG STANDARD HCO3 25.7 MMOL/L. (22.0-26.0); ABG TOTAL CO2 29.1 MMOL/L (22.0-29.0); ABG pH (ARTERIAL) 7.341 UNITS (7.350-7.450)
[2025-01-06] MEDS ORDERED: NOREPINEPHRINE 4 MG IN D5W 250 ML IVBAG (16 MCG/ML) As Ordered ONE (09:25)
[2025-01-06] MEDS: CHARCOAL ACTIVATED LIQUID 25 GM/120 ML BTL PO SCH (09:41)
[2025-01-06] MEDS: MEROPENEM 1 GM in IV 1 EA IV SCH (09:41)
[2025-01-06] MEDS: LR 1,000 ML IV ONE (09:42)
[2025-01-06] MEDS: NOREPINEPHRINE 4MG IN D5 250ML 4 MG in IV 1 EA IV SCH (10:00)
[2025-01-06] MEDS ORDERED: NOREPINEPHRINE 4MG IN D5 250ML 4 MG in IV 1 EA IV SCH (10:10)
[2025-01-06] MEDS: MIDAZOLAM INJ 2 MG/2 ML VIAL IV PRN (10:35)
[2025-01-06] MEDS: VANCOMYCIN HCL 2,000 MG, VIAL MATE ADAPTER 1 EACH in NS 500 ML IV ONE (11:53)
[2025-01-06] MEDS ORDERED: INSULIN LISPRO (NovoLOG) PER UNIT SC SCH (12:00)
[2025-01-06] MEDS: MIDAZOLAM 100MG/100ML-0.9%NACL 100 MG in IV 1 EA IV SCH (14:14)
[2025-01-06 14:17] LABS: PLATELET COUNT, AUTOMATED 283 10^3/uL (150-450)
[2025-01-06 14:57] LABS: ALT/SGPT 22 U/L (7.0-40); AST/SGOT 17 U/L (<34); CALCIUM LEVEL 8.2 MG/DL (8.5-10.1); CARBON DIOXIDE LEVEL 27 MMOL/L (20-31); CHLORIDE LEVEL 106 MMOL/L (98-107); CREATININE FOR GFR 0.65 MG/DL (0.55-1.30); GLOMERULAR FILTRATION RATE > 90.0 (>60); POTASSIUM SERUM 4.1 MMOL/L (3.5-5.1); SODIUM LEVEL 143 MMOL/L (136-145)
[2025-01-06] MEDS: MAG SULF 1GM/100ML (MAG RUN) 1 GM in IV 1 EA IV ONE (15:35)
[2025-01-06] MEDS: NYSTATIN 100,000 UNITS/GM TOPICAL PWD 15 GM TOP SCH (20:01)
[2025-01-07] VITALS (44 sets, daily range): BP systolic 103–154; BP diastolic 56–91; TEMP 97–98.2; O2SAT 93–100
[2025-01-07 05:30] LABS: ABG BASE EXCESS -0.2 (-2.0-2.0); ABG HCO3 25.6 MMOL/L (22.0-26.0); ABG O2 SATURATION 98.1 % (95.0-99.0); ABG PARTIAL PRESSURE CO2 47.8 mmHg (35.0-45.0); ABG PARTIAL PRESSURE O2 126.1 mmHg (75.0-100.0); ABG STANDARD HCO3 24.3 MMOL/L. (22.0-26.0); ABG TOTAL CO2 27.1 MMOL/L (22.0-29.0); ABG pH (ARTERIAL) 7.347 UNITS (7.350-7.450)
[2025-01-07 05:44] LABS: BASO # 0.0 10^3/uL (0.0-0.2); BASO % 0.3 % (0.0-1.0); EOS # 0.3 10^3/uL (0.0-0.5); EOS % 3.1 % (0.0-3.0); LYMPH # 1.0 10^3/uL (1.5-5.0); LYMPH % 12.0 % (24.0-44.0); MONO # 0.7 10^3/uL (0.0-0.8); MONO % 9.0 % (2.0-8.0); NEUTROPHILS # 6.0 10^3/uL (1.5-8.5); NEUTROPHILS % 75.3 % (36.0-66.0); PLATELET COUNT, AUTOMATED 317 10^3/uL (150-450)
[2025-01-07 05:57] LABS: INR 1.04
[2025-01-07 06:13] LABS: ALT/SGPT 22 U/L (7.0-40); AST/SGOT 13 U/L (<34); CALCIUM LEVEL 8.3 MG/DL (8.5-10.1); CARBON DIOXIDE LEVEL 29 MMOL/L (20-31); CHLORIDE LEVEL 105 MMOL/L (98-107); CREATININE FOR GFR 0.64 MG/DL (0.55-1.30); GLOMERULAR FILTRATION RATE > 90.0 (>60); MAGNESIUM LEVEL 1.7 MG/DL (1.8-2.4); POTASSIUM SERUM 3.9 MMOL/L (3.5-5.1); SODIUM LEVEL 144 MMOL/L (136-145)
[2025-01-07] MEDS: MAG SULF 1GM/100ML (MAG RUN) 1 GM in IV 1 EA IV ONE (08:35)
[2025-01-07] MEDS ORDERED: ENOXAPARIN 40 MG/0.4 ML SYRINGE (J1650 PER 10MG) SC SCH (09:00)
[2025-01-07] MEDS: ENOXAPARIN 60 MG/0.6 ML SYRINGE (J1650 PER 10MG) SC SCH (10:45)
[2025-01-07] MEDS ORDERED: ALBUTEROL 90 MCG/ACT 8 GM HFA INHALER INH PRN (13:10)
[2025-01-07] MEDS: FERROUS GLUCONATE 324 MG TAB PO SCH (13:36)
[2025-01-07] MEDS ORDERED: LEVALBUTEROL 1.25 MG 0.5ML CONCENTRATE NEB NEB PRN (13:45)
[2025-01-07] MEDS ORDERED: HEPARIN SOD 5000 UNITS/ML 1 ML VIAL/SYRINGE SQ SCH (14:00)
[2025-01-07] MEDS ORDERED: MAGN400T2 PO (16:01)
[2025-01-08] MEDS ORDERED: LEVOTHYROXINE 125 MCG TABLET (0.125 MG) PO SCH (06:00)
== END 2025-01-07 14:38 | disposition home or self-care (01) | DRG 812 ==
LOC: M ED 02:23 → M ED INP 06:12 → M ICU 08:31
PROVIDERS: ADMIT Student in an Organized Health Care Education/Training Program; ATTEND Student in an Organized Health Care Education/Training Program
PROC: 5A1945Z Respiratory Ventilation, 24-96 Consecutive Hours (ICD-10-PCS; principal; 2025-01-06)
DX: T42.4X2A Poisoning by benzodiazepines, intentional self-harm, initial encounter (principal); R57.9 Shock, unspecified; J96.00 Acute respiratory failure, unspecified whether with hypoxia or hypercapnia; J69.0 Pneumonitis due to inhalation of food and vomit; G92.8 Other toxic encephalopathy; I27.20 Pulmonary hypertension, unspecified; Z68.44 Body mass index [BMI] 60.0-69.9, adult; E66.01 Morbid (severe) obesity due to excess calories; E83.42 Hypomagnesemia; F25.9 Schizoaffective disorder, unspecified; T45.512A Poisoning by anticoagulants, intentional self-harm, initial encounter; T50.1X2A Poisoning by loop [high-ceiling] diuretics, intentional self-harm, initial encounter; E06.3 Autoimmune thyroiditis; D50.9 Iron deficiency anemia, unspecified; G47.33 Obstructive sleep apnea (adult) (pediatric); T14.91XA Suicide attempt, initial encounter; Z91.51 Personal history of suicidal behavior; G40.909 Epilepsy, unspecified, not intractable, without status epilepticus; Z90.49 Acquired absence of other specified parts of digestive tract; I87.2 Venous insufficiency (chronic) (peripheral); Z79.890 Hormone replacement therapy; Z79.899 Other long term (current) drug therapy; Z88.0 Allergy status to penicillin; Z91.013 Allergy to seafood; Z91.041 Radiographic dye allergy status; Z88.6 Allergy status to analgesic agent; Z91.040 Latex allergy status; Z88.2 Allergy status to sulfonamides; Z88.8 Allergy status to other drugs, medicaments and biological substances; F43.10 Post-traumatic stress disorder, unspecified; F41.9 Anxiety disorder, unspecified; F60.3 Borderline personality disorder

== ENCOUNTER 2025-01-09 01:34 | Emergency (ER) | payer OTHER ==
[~2025-01-09] VITALS: Ht 172.7 cm; Wt 189.5 kg
[~2025-01-09 01:34] MED LIST changes: +MAGN400T2 PO
[2025-01-09] MEDS ORDERED: PANTOPRAZOLE 40MG TAB PO ONE (06:25)
[2025-01-09] MEDS ORDERED: FAMOTIDINE 20 MG/2 ML VIAL IVP ONE (06:25)
[2025-01-09] MEDS ORDERED: NS (Normal Saline) 0.9% 1,000 ML IV ONE (06:25)
[2025-01-09] MEDS ORDERED: PROCHLORPERAZINE 10MG/2ML VIAL IV ONE (06:25)
[2025-01-09 06:55] LABS: VENOUS BASE EXCESS 4.7 (-2.0-2.0); VENOUS HCO3 31.4 MMOL/L (23.0-27.0); VENOUS O2 SATURATION 65.2 % (60.0-80.0); VENOUS PARTIAL PRESSURE CO2 60.0 mmHg (38.0-50.0); VENOUS PARTIAL PRESSURE O2 39.4 mmHg (30.0-50.0); VENOUS PH 7.336 UNITS (7.330-7.430); VENOUS STANDARD HCO3 28.2 MMOL/L; VENOUS TOTAL CO2 33.2 MMOL/L (24.0-28.0)
[2025-01-09 07:04] LABS: BASO # 0.0 10^3/uL (0.0-0.2); BASO % 0.3 % (0.0-1.0); EOS # 0.3 10^3/uL (0.0-0.5); EOS % 2.6 % (0.0-3.0); LYMPH # 2.1 10^3/uL (1.5-5.0); LYMPH % 19.9 % (24.0-44.0); MONO # 0.9 10^3/uL (0.0-0.8); MONO % 8.3 % (2.0-8.0); NEUTROPHILS # 7.3 10^3/uL (1.5-8.5); NEUTROPHILS % 68.6 % (36.0-66.0); PLATELET COUNT, AUTOMATED 364 10^3/uL (150-450)
[2025-01-09 07:19] LABS: INR 0.96
[2025-01-09 07:37] LABS: ALT/SGPT 31 U/L (7.0-40); AST/SGOT 25 U/L (<34); CALCIUM LEVEL 8.5 MG/DL (8.5-10.1); CARBON DIOXIDE LEVEL 30 MMOL/L (20-31); CHLORIDE LEVEL 107 MMOL/L (98-107); CREATININE FOR GFR 0.77 MG/DL (0.55-1.30); GLOMERULAR FILTRATION RATE > 90.0 (>60); POTASSIUM SERUM 3.8 MMOL/L (3.5-5.1); SODIUM LEVEL 148 MMOL/L (136-145)
[2025-01-09 07:40] LABS: HCG, SERUM QUALITATIVE NEGATIVE (NEGATIVE)
[2025-01-09 08:11] VITALS: BP 137/73; TEMP 96.8; O2SAT 96
== END 2025-01-09 08:23 | disposition home or self-care (01) ==
LOC: M ED 01:34
DX: K92.2 Gastrointestinal hemorrhage, unspecified (principal); I10 Essential (primary) hypertension; R56.9 Unspecified convulsions; Z86.79 Personal history of other diseases of the circulatory system; Z85.6 Personal history of leukemia; F41.9 Anxiety disorder, unspecified; G43.909 Migraine, unspecified, not intractable, without status migrainosus; E07.9 Disorder of thyroid, unspecified; Z79.01 Long term (current) use of anticoagulants; Z12.10 Encounter for screening for malignant neoplasm of intestinal tract, unspecified; Z79.899 Other long term (current) drug therapy; Z91.041 Radiographic dye allergy status; Z91.040 Latex allergy status; Z91.02 Food additives allergy status; Z91.013 Allergy to seafood; Z88.0 Allergy status to penicillin; Z88.8 Allergy status to other drugs, medicaments and biological substances; Z88.1 Allergy status to other antibiotic agents; Z88.5 Allergy status to narcotic agent; Z88.6 Allergy status to analgesic agent; Z88.2 Allergy status to sulfonamides

== ENCOUNTER 2025-01-10 21:26 | Emergency (ER) | payer OTHER ==
[~2025-01-10] VITALS: Ht 175.3 cm; Wt 181.8 kg
[2025-01-10 22:32] LABS: BASO # 0.0 10^3/uL (0.0-0.2); BASO % 0.4 % (0.0-1.0); EOS # 0.4 10^3/uL (0.0-0.5); EOS % 4.3 % (0.0-3.0); LYMPH # 1.5 10^3/uL (1.5-5.0); LYMPH % 17.8 % (24.0-44.0); MONO # 0.6 10^3/uL (0.0-0.8); MONO % 7.4 % (2.0-8.0); NEUTROPHILS # 5.7 10^3/uL (1.5-8.5); NEUTROPHILS % 69.9 % (36.0-66.0); PLATELET COUNT, AUTOMATED 370 10^3/uL (150-450)
[2025-01-10 22:54] LABS: CALCIUM LEVEL 9.0 MG/DL (8.5-10.1); CARBON DIOXIDE LEVEL 30 MMOL/L (20-31); CHLORIDE LEVEL 103 MMOL/L (98-107); CREATININE FOR GFR 0.86 MG/DL (0.55-1.30); GLOMERULAR FILTRATION RATE > 90.0 (>60); POTASSIUM SERUM 4.4 MMOL/L (3.5-5.1); SODIUM LEVEL 141 MMOL/L (136-145)
[2025-01-10 23:17] LABS: INR 0.96
[2025-01-11 07:45] VITALS: BP 133/59
[2025-01-11 07:56] VITALS: O2SAT 96
[2025-01-11 08:14] VITALS: TEMP 97.3
[2025-01-12] MEDS ORDERED: PRED20TA PO (22:42)
== END 2025-01-11 08:34 | disposition home or self-care (01) ==
LOC: M ED 21:26
DX: D50.9 Iron deficiency anemia, unspecified (principal); G47.33 Obstructive sleep apnea (adult) (pediatric); E06.3 Autoimmune thyroiditis; Z79.899 Other long term (current) drug therapy; Z88.0 Allergy status to penicillin; Z88.8 Allergy status to other drugs, medicaments and biological substances; Z88.1 Allergy status to other antibiotic agents; Z88.5 Allergy status to narcotic agent; Z88.6 Allergy status to analgesic agent; Z88.2 Allergy status to sulfonamides; Z91.041 Radiographic dye allergy status; Z91.040 Latex allergy status; Z91.02 Food additives allergy status; Z91.018 Allergy to other foods

== ENCOUNTER 2025-01-12 21:39 | Emergency (ER) | payer OTHER ==
[~2025-01-12] VITALS: Ht 175.3 cm; Wt 181.8 kg
[2025-01-12] MEDS ORDERED: PRED20TA PO (22:42)
[2025-01-12] MEDS: predniSONE 20 MG TAB PO ONE (22:45)
[2025-01-13] VITALS: BP 117/62; TEMP 97.9; O2SAT 97
[2025-01-13] MEDS ORDERED: MAGN400T35 PO (23:50)
[2025-01-13] MEDS ORDERED: DIAZ5TAB PO (23:50)
== END 2025-01-13 00:20 | disposition home or self-care (01) ==
LOC: M ED 21:39
DX: T78.03XA Anaphylactic reaction due to other fish, initial encounter (principal); Z76.5 Malingerer [conscious simulation]; I27.20 Pulmonary hypertension, unspecified; F32.A Depression, unspecified; E03.9 Hypothyroidism, unspecified; G47.33 Obstructive sleep apnea (adult) (pediatric); G40.909 Epilepsy, unspecified, not intractable, without status epilepticus; Z79.899 Other long term (current) drug therapy; Z88.0 Allergy status to penicillin; Z88.6 Allergy status to analgesic agent; Z88.8 Allergy status to other drugs, medicaments and biological substances; Z88.1 Allergy status to other antibiotic agents; Z88.5 Allergy status to narcotic agent; Z88.2 Allergy status to sulfonamides; Z91.041 Radiographic dye allergy status; Z91.040 Latex allergy status; Z91.02 Food additives allergy status; Z91.013 Allergy to seafood
CPT/HCPCS: 99284; J7512

== ENCOUNTER 2025-01-13 21:53 | Emergency (ER) | payer OTHER ==
[2025-01-13 22:52] LABS: PLATELET COUNT, AUTOMATED 361 10^3/uL (150-450)
[2025-01-13 23:18] LABS: ETHYL ALCOHOL (ETHANOL) < 0.003 % (0.000-0.010)
[2025-01-13 23:20] LABS: ALT/SGPT 19 U/L (7.0-40); AST/SGOT 11 U/L (<34); CALCIUM LEVEL 8.2 MG/DL (8.5-10.1); CARBON DIOXIDE LEVEL 26 MMOL/L (20-31); CHLORIDE LEVEL 109 MMOL/L (98-107); CREATININE FOR GFR 0.68 MG/DL (0.55-1.30); GLOMERULAR FILTRATION RATE > 90.0 (>60); POTASSIUM SERUM 4.2 MMOL/L (3.5-5.1); SALICYLATE LEVEL < 3.0 MG/DL (<30); SODIUM LEVEL 144 MMOL/L (136-145)
[2025-01-13 23:29] LABS: HCG, SERUM QUALITATIVE NEGATIVE (NEGATIVE)
[2025-01-13] MEDS ORDERED: MAGN400T35 PO (23:50)
[2025-01-13] MEDS ORDERED: DIAZ5TAB PO (23:50)
[2025-01-13] MEDS ORDERED: HOME MED LIST COMPLETE! XX SCH (23:50)
[2025-01-14] MEDS ORDERED: LORazepam 1 MG TAB PO PRN
[2025-01-14] MEDS ORDERED: MOM 30 ML SUSPENSION UDC PO PRN
[2025-01-14] MEDS ORDERED: MAALOX 30 ML SUSP *UDC PO PRN
[2025-01-14] MEDS ORDERED: HALOPERIDOL 5 MG TAB PO PRN
[2025-01-14 00:26] LABS: AMPHETAMINES LEVEL URINE NEGATIVE (NEGATIVE); BARBITURATES URINE NEGATIVE (NEGATIVE); COCAINE METABOLITE URINE NEGATIVE (NEGATIVE); METHADONE URINE NEGATIVE (NEGATIVE); OPIATES URINE NEGATIVE (NEGATIVE); PHENCYCLIDINE URINE NEGATIVE (NEGATIVE)
[2025-01-14 00:27] LABS: BENZODIAZEPINES URINE POSITIVE (NEGATIVE); CANNABINOIDS URINE POSITIVE (NEGATIVE)
[2025-01-14] MEDS ORDERED: LEVOTHYROXINE 125 MCG TABLET (0.125 MG) PO SCH (06:00)
[2025-01-14] MEDS ORDERED: ALBUTEROL 90 MCG/ACT 8 GM HFA INHALER INH PRN ×2 (08:00)
[2025-01-14] MEDS ORDERED: LEVOTHYROXINE 150 MCG TABLET (0.15 MG) PO SCH ×2 (08:21→09:00)
[2025-01-14] MEDS: MAGNESIUM OXIDE 400 MG TAB PO SCH (08:52)
[2025-01-14] MEDS: PREGABALIN 25 MG CAP PO SCH (08:52)
[2025-01-14] MEDS ORDERED: PREGABALIN 25 MG CAP PO SCH (09:00)
[2025-01-14] MEDS ORDERED: LEVOTHYROXINE 100 MCG (0.1 MG) 5ML SDV PF (SOLUTION FORM) IV SCH (09:00)
[2025-01-14] MEDS ORDERED: FERROUS GLUCONATE 324 MG TAB PO SCH ×2 (09:00)
[2025-01-14 10:57] VITALS: BP 132/88; TEMP 98; O2SAT 98
[2025-01-14] MEDS ORDERED: RAMELTEON 8 MG TAB PO SCH ×2 (21:00)
== END 2025-01-14 11:05 | disposition home or self-care (01) ==
LOC: M ED 21:53 → UNDOADMIN 23:58 → M ED INP 23:58 → UNDODISIN 01-14 11:04
DX: F60.3 Borderline personality disorder (principal); R45.851 Suicidal ideations; F32.A Depression, unspecified; I27.20 Pulmonary hypertension, unspecified; G47.33 Obstructive sleep apnea (adult) (pediatric); F10.10 Alcohol abuse, uncomplicated; Z88.0 Allergy status to penicillin; Z88.8 Allergy status to other drugs, medicaments and biological substances; Z88.6 Allergy status to analgesic agent; Z88.5 Allergy status to narcotic agent; Z88.1 Allergy status to other antibiotic agents; Z91.041 Radiographic dye allergy status; Z91.013 Allergy to seafood; Z79.52 Long term (current) use of systemic steroids; Z79.899 Other long term (current) drug therapy
CPT/HCPCS: 36415; 80048; 80076; 80143; 80307; 82077; 84443; 84703; 85027; 99284; J7512

== ENCOUNTER 2025-01-14 21:02 | Emergency (ER) | payer OTHER ==
[~2025-01-14] VITALS: Ht 175.3 cm; Wt 159.1 kg
[~2025-01-14 21:02] MED LIST changes: +MAGN400T35 PO
[2025-01-15] MEDS: ONDANSETRON 4MG ORAL DISINTEGRATING TAB PO ONE (06:38)
[2025-01-15 07:13] VITALS: BP 132/68; TEMP 97.6; O2SAT 96
== END 2025-01-15 07:19 | disposition home or self-care (01) ==
LOC: M ED 21:02
DX: R11.2 Nausea with vomiting, unspecified (principal); I10 Essential (primary) hypertension; Z86.73 Personal history of transient ischemic attack (TIA), and cerebral infarction without residual deficits; F41.9 Anxiety disorder, unspecified; F39 Unspecified mood [affective] disorder; R56.9 Unspecified convulsions; G43.909 Migraine, unspecified, not intractable, without status migrainosus; Z86.711 Personal history of pulmonary embolism; Z85.6 Personal history of leukemia; Z79.899 Other long term (current) drug therapy; Z88.0 Allergy status to penicillin; Z88.1 Allergy status to other antibiotic agents; Z88.5 Allergy status to narcotic agent; Z88.6 Allergy status to analgesic agent; Z91.02 Food additives allergy status; Z91.013 Allergy to seafood; Z91.041 Radiographic dye allergy status; Z91.040 Latex allergy status

== ENCOUNTER 2025-01-17 20:39 | Emergency (ER) | payer OTHER ==
[~2025-01-17] VITALS: Ht 175.3 cm; Wt 159.1 kg
[2025-01-17] MEDS: IPRATROPIUM 0.5 MG/ALBUTEROL 2.5 MG INH SOL UD 3 ML NEB SCH (21:54)
[2025-01-17 22:12] LABS: HCG, SERUM QUALITATIVE NEGATIVE (NEGATIVE)
[2025-01-17] MEDS: EPINEPHrine INJ 1 MG/ML 1ML AMP SC STA (22:59)
[2025-01-18 00:31] LABS: ABG BASE EXCESS 0.9 (-2.0-2.0); ABG HCO3 25.9 MMOL/L (22.0-26.0); ABG O2 SATURATION 96.3 % (95.0-99.0); ABG PARTIAL PRESSURE CO2 42.9 mmHg (35.0-45.0); ABG PARTIAL PRESSURE O2 93.6 mmHg (75.0-100.0); ABG STANDARD HCO3 25.3 MMOL/L. (22.0-26.0); ABG TOTAL CO2 27.2 MMOL/L (22.0-29.0); ABG pH (ARTERIAL) 7.398 UNITS (7.350-7.450)
[2025-01-18 05:07] VITALS: BP 96/60; O2SAT 97
[2025-01-18] MEDS ORDERED: PEPC1TAB5 PO (05:42)
[2025-01-18] MEDS ORDERED: PRED20TA PO (05:42)
[2025-01-18] MEDS ORDERED: CETI-24 PO (05:42)
[2025-01-18 06:31] VITALS: TEMP 98
== END 2025-01-18 06:25 | disposition home or self-care (01) ==
LOC: M ED 20:39
DX: T88.7XXA Unspecified adverse effect of drug or medicament, initial encounter (principal); Z85.6 Personal history of leukemia; F41.9 Anxiety disorder, unspecified; Z87.01 Personal history of pneumonia (recurrent); Z86.718 Personal history of other venous thrombosis and embolism; Z79.899 Other long term (current) drug therapy; Z88.0 Allergy status to penicillin; Z88.1 Allergy status to other antibiotic agents; Z88.6 Allergy status to analgesic agent; Z88.2 Allergy status to sulfonamides; Z91.041 Radiographic dye allergy status; Z91.040 Latex allergy status; Z91.02 Food additives allergy status; Z91.013 Allergy to seafood; Z88.5 Allergy status to narcotic agent
CPT/HCPCS: 36415; 36600; 71045; 80053; 82607; 82728; 82746; 82803; 83550; 84703; 85025; 85046; 85379; 93041; 94640; 94760; 96372; 96374; 96376; 99285; G0463; J0166; J1100

== ENCOUNTER 2025-01-23 00:21 | Emergency (ER) | payer OTHER ==
[~2025-01-23] VITALS: Ht 175.3 cm; Wt 200.0 kg
[~2025-01-23 00:21] MED LIST changes: +CETI-24 PO
[2025-01-23 00:27] VITALS: TEMP 97.7
[2025-01-23 01:49] VITALS: BP 138/67; O2SAT 95
== END 2025-01-23 01:52 | disposition home or self-care (01) ==
LOC: M ED 00:21
DX: T88.7XXA Unspecified adverse effect of drug or medicament, initial encounter (principal); E11.9 Type 2 diabetes mellitus without complications; I10 Essential (primary) hypertension; G43.909 Migraine, unspecified, not intractable, without status migrainosus; G47.33 Obstructive sleep apnea (adult) (pediatric); Z86.73 Personal history of transient ischemic attack (TIA), and cerebral infarction without residual deficits; Z79.899 Other long term (current) drug therapy; Z88.0 Allergy status to penicillin; Z88.6 Allergy status to analgesic agent; Z88.1 Allergy status to other antibiotic agents; Z88.5 Allergy status to narcotic agent; Z91.040 Latex allergy status; Z91.041 Radiographic dye allergy status; Z91.013 Allergy to seafood; Z88.2 Allergy status to sulfonamides; Z91.02 Food additives allergy status; Z88.8 Allergy status to other drugs, medicaments and biological substances

== ENCOUNTER 2025-01-25 21:15 | Emergency (ER) | payer OTHER ==
[2025-01-25 22:29] LABS: PLATELET COUNT, AUTOMATED 342 10^3/uL (150-450)
[2025-01-25 22:46] LABS: AMPHETAMINES LEVEL URINE NEGATIVE (NEGATIVE); BARBITURATES URINE NEGATIVE (NEGATIVE); CANNABINOIDS URINE NEGATIVE (NEGATIVE); COCAINE METABOLITE URINE NEGATIVE (NEGATIVE); METHADONE URINE NEGATIVE (NEGATIVE); OPIATES URINE NEGATIVE (NEGATIVE); PHENCYCLIDINE URINE NEGATIVE (NEGATIVE)
[2025-01-25 22:47] LABS: BENZODIAZEPINES URINE POSITIVE (NEGATIVE)
[2025-01-25 22:48] LABS: ETHYL ALCOHOL (ETHANOL) 0.003 % (0.000-0.010)
[2025-01-25 22:50] LABS: ALT/SGPT 32 U/L (7.0-40); AST/SGOT 34 U/L (<34); CALCIUM LEVEL 9.0 MG/DL (8.5-10.1); CARBON DIOXIDE LEVEL 27 MMOL/L (20-31); CHLORIDE LEVEL 107 MMOL/L (98-107); CREATININE FOR GFR 0.79 MG/DL (0.55-1.30); GLOMERULAR FILTRATION RATE > 90.0 (>60); POTASSIUM SERUM 4.1 MMOL/L (3.5-5.1); SALICYLATE LEVEL < 3.0 MG/DL (<30); SODIUM LEVEL 144 MMOL/L (136-145)
[2025-01-25] MEDS: NS (Normal Saline) 0.9% 1,000 ML IV ONE (23:25)
[2025-01-25 23:40] LABS: BASO # 0.0 10^3/uL (0.0-0.2); BASO % 0.3 % (0.0-1.0); EOS # 0.3 10^3/uL (0.0-0.5); EOS % 2.7 % (0.0-3.0); LYMPH # 1.4 10^3/uL (1.5-5.0); LYMPH % 14.6 % (24.0-44.0); MONO # 0.7 10^3/uL (0.0-0.8); MONO % 7.1 % (2.0-8.0); NEUTROPHILS # 7.1 10^3/uL (1.5-8.5); NEUTROPHILS % 75.0 % (36.0-66.0)
[2025-01-26] LABS: HCG, SERUM QUALITATIVE NEGATIVE (NEGATIVE)
[2025-01-26 06:48] LABS: KETONE, URINE AUTO RFX NEGATIVE (NEGATIVE); LEUKOCYTE ESTERASE UR AUTO RFX NEGATIVE (NEGATIVE); MUCUS, URINE RFX SMALL (NEGATIVE); NITRITE, URINE AUTO RFX NEGATIVE (NEGATIVE); RBC, URINE AUTO RFX 0 /HPF (0-3); SQUAM EPITHELIAL CELL UR AURFX 3 /HPF (0-6); WBC, URINE AUTO RFX 4 /HPF (0-3)
[2025-01-26] MEDS ORDERED: PROT20TA11 PO (07:11)
[2025-01-26 07:30] VITALS: BP 115/64; TEMP 97.3; O2SAT 94
[2025-01-27] MEDS ORDERED: FAMO1TAB11 PO (18:00)
== END 2025-01-26 07:37 | disposition home or self-care (01) ==
LOC: M ED 21:15
DX: R11.2 Nausea with vomiting, unspecified (principal); K59.00 Constipation, unspecified; I10 Essential (primary) hypertension; R56.9 Unspecified convulsions; G47.33 Obstructive sleep apnea (adult) (pediatric); G43.909 Migraine, unspecified, not intractable, without status migrainosus; D64.9 Anemia, unspecified; Z86.718 Personal history of other venous thrombosis and embolism; Z85.6 Personal history of leukemia; F32.A Depression, unspecified; F41.9 Anxiety disorder, unspecified; F17.200 Nicotine dependence, unspecified, uncomplicated; Z79.899 Other long term (current) drug therapy; Z91.041 Radiographic dye allergy status; Z88.0 Allergy status to penicillin; Z91.013 Allergy to seafood; Z88.6 Allergy status to analgesic agent; Z88.8 Allergy status to other drugs, medicaments and biological substances; Z88.1 Allergy status to other antibiotic agents; Z88.5 Allergy status to narcotic agent; Z91.040 Latex allergy status; Z91.02 Food additives allergy status; Z88.2 Allergy status to sulfonamides

== ENCOUNTER 2025-01-27 03:59 | Emergency (ER) | payer OTHER ==
[~2025-01-27 03:59] MED LIST changes: +PROT20TA11 PO
[2025-01-27 08:30] VITALS: BP 118/54; TEMP 98.3; O2SAT 94
[2025-01-27] MEDS ORDERED: FAMO1TAB11 PO (18:00)
[2025-01-28] MEDS ORDERED: CETI10CH PO (06:14)
[2025-01-28] MEDS ORDERED: PANT20TA6 PO (06:33)
[2025-01-28] MEDS ORDERED: MAGN400T35 PO (06:33)
== END 2025-01-27 08:35 | disposition home or self-care (01) ==
LOC: M ED 03:59
DX: T76.21XA Adult sexual abuse, suspected, initial encounter (principal); I10 Essential (primary) hypertension; G47.33 Obstructive sleep apnea (adult) (pediatric); R56.9 Unspecified convulsions; G43.909 Migraine, unspecified, not intractable, without status migrainosus; Z86.718 Personal history of other venous thrombosis and embolism; F32.A Depression, unspecified; F41.9 Anxiety disorder, unspecified; D64.9 Anemia, unspecified; Z85.6 Personal history of leukemia; F17.200 Nicotine dependence, unspecified, uncomplicated; E07.9 Disorder of thyroid, unspecified; Z86.73 Personal history of transient ischemic attack (TIA), and cerebral infarction without residual deficits; Z91.013 Allergy to seafood; Z79.899 Other long term (current) drug therapy; Z88.0 Allergy status to penicillin; Z88.2 Allergy status to sulfonamides; Z88.6 Allergy status to analgesic agent; Z88.8 Allergy status to other drugs, medicaments and biological substances; Z88.1 Allergy status to other antibiotic agents; Z88.5 Allergy status to narcotic agent; Z91.041 Radiographic dye allergy status; Z91.040 Latex allergy status; Z91.02 Food additives allergy status

== ENCOUNTER 2025-01-27 17:27 | Emergency (ER) | payer OTHER ==
[~2025-01-27] VITALS: Ht 175.3 cm; Wt 191.8 kg
[2025-01-27 17:52] LABS: BASO # 0.0 10^3/uL (0.0-0.2); BASO % 0.2 % (0.0-1.0); EOS # 0.3 10^3/uL (0.0-0.5); EOS % 2.7 % (0.0-3.0); LYMPH # 1.3 10^3/uL (1.5-5.0); LYMPH % 12.4 % (24.0-44.0); MONO # 0.8 10^3/uL (0.0-0.8); MONO % 7.5 % (2.0-8.0); NEUTROPHILS # 7.8 10^3/uL (1.5-8.5); NEUTROPHILS % 77.0 % (36.0-66.0); PLATELET COUNT, AUTOMATED 320 10^3/uL (150-450)
[2025-01-27] MEDS ORDERED: FAMO1TAB11 PO (18:00)
[2025-01-27 18:15] LABS: ETHYL ALCOHOL (ETHANOL) < 0.003 % (0.000-0.010)
[2025-01-27 18:16] LABS: CPK CREATINE PHOSPHOKINASE 82 U/L (34-145); SALICYLATE LEVEL < 3.0 MG/DL (<30)
[2025-01-27 18:18] LABS: HCG, SERUM QUALITATIVE NEGATIVE (NEGATIVE)
[2025-01-27 18:21] LABS: ALT/SGPT 34 U/L (7.0-40); AST/SGOT 25 U/L (<34); CALCIUM LEVEL 8.2 MG/DL (8.5-10.1); CARBON DIOXIDE LEVEL 29 MMOL/L (20-31); CHLORIDE LEVEL 104 MMOL/L (98-107); CREATININE FOR GFR 0.53 MG/DL (0.55-1.30); GLOMERULAR FILTRATION RATE > 90.0 (>60); POTASSIUM SERUM 4.0 MMOL/L (3.5-5.1); SODIUM LEVEL 140 MMOL/L (136-145)
[2025-01-27 18:39] LABS: MAGNESIUM LEVEL 1.7 MG/DL (1.8-2.4)
[2025-01-27] MEDS: MAG SULF 1GM/100ML (MAG RUN) 1 GM in IV 1 EA IV ONE (19:10)
[2025-01-27 21:00] LABS: CALCIUM LEVEL 7.8 MG/DL (8.5-10.1); CARBON DIOXIDE LEVEL 30 MMOL/L (20-31); CHLORIDE LEVEL 106 MMOL/L (98-107); CREATININE FOR GFR 0.53 MG/DL (0.55-1.30); GLOMERULAR FILTRATION RATE > 90.0 (>60); POTASSIUM SERUM 4.1 MMOL/L (3.5-5.1); SODIUM LEVEL 144 MMOL/L (136-145)
[2025-01-27 21:36] LABS: AMPHETAMINES LEVEL URINE NEGATIVE (NEGATIVE); BARBITURATES URINE NEGATIVE (NEGATIVE); BENZODIAZEPINES URINE POSITIVE (NEGATIVE); CANNABINOIDS URINE NEGATIVE (NEGATIVE); COCAINE METABOLITE URINE NEGATIVE (NEGATIVE); METHADONE URINE NEGATIVE (NEGATIVE); OPIATES URINE NEGATIVE (NEGATIVE); PHENCYCLIDINE URINE NEGATIVE (NEGATIVE)
[2025-01-28] MEDS ORDERED: CETI10CH PO (06:14)
[2025-01-28] MEDS ORDERED: PANT20TA6 PO (06:33)
[2025-01-28] MEDS ORDERED: MAGN400T35 PO (06:33)
[2025-01-28] MEDS ORDERED: HOME MED LIST COMPLETE! XX SCH (06:35)
[2025-01-28 16:00] VITALS: O2SAT 95
[2025-01-28 16:05] VITALS: BP 115/53; TEMP 98.3
[2025-01-29] MEDS ORDERED: ALB2.5NEB NEB (15:37)
[2025-01-29] MEDS ORDERED: NEBU1EAC78 MC ×2 (15:37→16:12)
== END 2025-01-28 16:28 | disposition home or self-care (01) ==
LOC: M ED 17:27 → EDBD 17:27 → M ED 01-28 16:28
DX: Z76.5 Malingerer [conscious simulation] (principal); I10 Essential (primary) hypertension; F32.A Depression, unspecified; R56.9 Unspecified convulsions; Z86.718 Personal history of other venous thrombosis and embolism; Z86.711 Personal history of pulmonary embolism; F12.10 Cannabis abuse, uncomplicated; F25.9 Schizoaffective disorder, unspecified; F41.9 Anxiety disorder, unspecified; F60.3 Borderline personality disorder; F43.10 Post-traumatic stress disorder, unspecified; Z91.51 Personal history of suicidal behavior; Z79.899 Other long term (current) drug therapy; Z88.0 Allergy status to penicillin; Z88.6 Allergy status to analgesic agent; Z88.8 Allergy status to other drugs, medicaments and biological substances; Z88.1 Allergy status to other antibiotic agents; Z88.5 Allergy status to narcotic agent; Z91.013 Allergy to seafood; Z88.2 Allergy status to sulfonamides; Z91.041 Radiographic dye allergy status
CPT/HCPCS: 36415; 80048; 80076; 80143; 80307; 82077; 82330; 82550; 83735; 84443; 84703; 85025; 93005; 93041; 94760; 96374; 99284; 99285; J3475

== ENCOUNTER 2025-01-29 11:48 | Emergency (ER) | payer OTHER ==
[~2025-01-29] VITALS: Ht 175.3 cm; Wt 159.1 kg
[2025-01-29] MEDS: FLUTICASONE PROPIONATE 0.05% NASAL SPRAY 16 GM NARES SCH (09:00)
[~2025-01-29 11:48] MED LIST changes: +CETI10CH PO; +FAMO1TAB11 PO; +PANT20TA6 PO
[2025-01-29] MEDS: IPRATROPIUM 0.5 MG/ALBUTEROL 2.5 MG INH SOL UD 3 ML NEB ONE (14:45)
[2025-01-29 15:03] VITALS: BP 108/57; TEMP 97.6; O2SAT 100
[2025-01-29] MEDS ORDERED: NEBU1EAC78 MC ×2 (15:37→16:12)
[2025-01-29] MEDS ORDERED: ALB2.5NEB NEB (15:37)
== END 2025-01-29 15:45 | disposition home or self-care (01) ==
LOC: M ED 11:48 → EDBD 11:48 → M ED 15:45
DX: J20.6 Acute bronchitis due to rhinovirus (principal); J45.909 Unspecified asthma, uncomplicated; Z86.711 Personal history of pulmonary embolism; Z79.899 Other long term (current) drug therapy; Z88.0 Allergy status to penicillin; Z88.1 Allergy status to other antibiotic agents; Z88.5 Allergy status to narcotic agent; Z88.6 Allergy status to analgesic agent; Z88.2 Allergy status to sulfonamides; Z91.041 Radiographic dye allergy status; Z91.040 Latex allergy status; Z91.02 Food additives allergy status; Z91.013 Allergy to seafood

== ENCOUNTER 2025-01-29 23:03 | Emergency (ER) | payer OTHER ==
[~2025-01-29 23:03] MED LIST changes: +ALB2.5NEB NEB; +NEBU1EAC78 MC
[2025-01-29 23:05] VITALS: BP 130/75; TEMP 97.4; O2SAT 95
== END 2025-01-30 03:20 | disposition left against medical advice (07) ==
LOC: M ED 23:03
DX: Z53.21 Procedure and treatment not carried out due to patient leaving prior to being seen by health care provider (principal)

== ENCOUNTER 2025-02-06 02:34 | Emergency (ER) | payer OTHER ==
[~2025-02-06] VITALS: Ht 167.6 cm; Wt 150.0 kg
[2025-02-06 02:36] VITALS: BP 126/80; TEMP 99; O2SAT 96
[2025-02-06 03:13] LABS: BASO # 0.0 10^3/uL (0.0-0.2); BASO % 0.4 % (0.0-1.0); EOS # 0.3 10^3/uL (0.0-0.5); EOS % 3.0 % (0.0-3.0); LYMPH # 1.3 10^3/uL (1.5-5.0); LYMPH % 14.3 % (24.0-44.0); MONO # 0.6 10^3/uL (0.0-0.8); MONO % 6.1 % (2.0-8.0); NEUTROPHILS # 7.0 10^3/uL (1.5-8.5); NEUTROPHILS % 74.5 % (36.0-66.0)
[2025-02-06 03:30] LABS: PLATELET COUNT, AUTOMATED 307 10^3/uL (150-450)
[2025-02-06 03:32] LABS: HCG, SERUM QUALITATIVE NEGATIVE (NEGATIVE)
[2025-02-06 03:39] LABS: CK-MB VALUE MASS < 1.0 NG/ML (<3.6)
[2025-02-06 03:40] LABS: CALCIUM LEVEL 8.3 MG/DL (8.5-10.1); CARBON DIOXIDE LEVEL 22 MMOL/L (20-31); CHLORIDE LEVEL 106 MMOL/L (98-107); CREATININE FOR GFR 0.72 MG/DL (0.55-1.30); GLOMERULAR FILTRATION RATE > 90.0 (>60); POTASSIUM SERUM 4.4 MMOL/L (3.5-5.1); SODIUM LEVEL 141 MMOL/L (136-145)
[2025-02-06 03:51] LABS: CPK CREATINE PHOSPHOKINASE 76 U/L (34-145)
== END 2025-02-06 06:32 | disposition left against medical advice (07) ==
LOC: M ED 02:34
DX: Z53.21 Procedure and treatment not carried out due to patient leaving prior to being seen by health care provider (principal)

== ENCOUNTER 2025-02-07 17:54 | Emergency (ER) | payer OTHER ==
[~2025-02-07] VITALS: Ht 175.3 cm; Wt 159.1 kg
[2025-02-07 19:01] LABS: VENOUS BASE EXCESS 2.0 (-2.0-2.0); VENOUS HCO3 27.7 MMOL/L (23.0-27.0); VENOUS O2 SATURATION 81.7 % (60.0-80.0); VENOUS PARTIAL PRESSURE CO2 49.1 mmHg (38.0-50.0); VENOUS PARTIAL PRESSURE O2 49.7 mmHg (30.0-50.0); VENOUS PH 7.370 UNITS (7.330-7.430); VENOUS STANDARD HCO3 26.0 MMOL/L; VENOUS TOTAL CO2 29.3 MMOL/L (24.0-28.0)
[2025-02-07 19:07] LABS: BASO # 0.0 10^3/uL (0.0-0.2); BASO % 0.4 % (0.0-1.0); EOS # 0.2 10^3/uL (0.0-0.5); EOS % 2.4 % (0.0-3.0); LYMPH # 1.2 10^3/uL (1.5-5.0); LYMPH % 14.8 % (24.0-44.0); MONO # 0.6 10^3/uL (0.0-0.8); MONO % 6.7 % (2.0-8.0); NEUTROPHILS # 6.2 10^3/uL (1.5-8.5); NEUTROPHILS % 74.9 % (36.0-66.0); PLATELET COUNT, AUTOMATED 303 10^3/uL (150-450)
[2025-02-07 19:33] LABS: ETHYL ALCOHOL (ETHANOL) < 0.003 % (0.000-0.010)
[2025-02-07 19:35] LABS: SALICYLATE LEVEL < 3.0 MG/DL (<30)
[2025-02-07 19:36] LABS: ALT/SGPT 42 U/L (7.0-40); AST/SGOT 43 U/L (<34); CALCIUM LEVEL 8.6 MG/DL (8.5-10.1); CARBON DIOXIDE LEVEL 26 MMOL/L (20-31); CHLORIDE LEVEL 104 MMOL/L (98-107); CREATININE FOR GFR 0.81 MG/DL (0.55-1.30); GLOMERULAR FILTRATION RATE > 90.0 (>60); POTASSIUM SERUM 4.1 MMOL/L (3.5-5.1); SODIUM LEVEL 141 MMOL/L (136-145)
[2025-02-07 19:37] LABS: HCG, SERUM QUALITATIVE NEGATIVE (NEGATIVE)
[2025-02-07 19:54] LABS: CPK CREATINE PHOSPHOKINASE 102 U/L (34-145)
[2025-02-07] MEDS: NS (Normal Saline) 0.9% 1,000 ML IV ONE (20:55)
[2025-02-08 00:37] VITALS: TEMP 97.6
[2025-02-08 01:00] VITALS: BP 111/56; O2SAT 97
== END 2025-02-08 01:37 | disposition home or self-care (01) ==
LOC: EDBD 17:54 → M ED 19:28
DX: M62.81 Muscle weakness (generalized) (principal); Z79.899 Other long term (current) drug therapy; Z88.0 Allergy status to penicillin; Z88.1 Allergy status to other antibiotic agents; Z88.2 Allergy status to sulfonamides; Z88.5 Allergy status to narcotic agent; Z88.6 Allergy status to analgesic agent; Z88.8 Allergy status to other drugs, medicaments and biological substances; Z91.041 Radiographic dye allergy status; Z91.013 Allergy to seafood; Z91.040 Latex allergy status; Z91.89 Other specified personal risk factors, not elsewhere classified

== ENCOUNTER 2025-02-08 18:26 | Emergency (ER) | payer OTHER ==
[~2025-02-08] VITALS: Ht 175.3 cm; Wt 191.7 kg
[2025-02-08 18:36] VITALS: TEMP 97.6
[2025-02-08 19:09] LABS: PLATELET COUNT, AUTOMATED 261 10^3/uL (150-450)
[2025-02-08 21:15] VITALS: BP 104/58
[2025-02-08 21:26] VITALS: O2SAT 72
[2025-02-08 23:35] LABS: ALT/SGPT 42 U/L (7.0-40); AST/SGOT 27 U/L (<34); CALCIUM LEVEL 8.6 MG/DL (8.5-10.1); CARBON DIOXIDE LEVEL 24 MMOL/L (20-31); CHLORIDE LEVEL 110 MMOL/L (98-107); CREATININE FOR GFR 0.71 MG/DL (0.55-1.30); GLOMERULAR FILTRATION RATE > 90.0 (>60); POTASSIUM SERUM 4.2 MMOL/L (3.5-5.1); SODIUM LEVEL 144 MMOL/L (136-145)
[2025-02-10] MEDS ORDERED: ROZE8TAB16 PO (11:01)
[2025-02-10] MEDS ORDERED: PREG25CA63 PO (11:01)
[2025-02-10] MEDS ORDERED: DIAZ10TA2 PO (11:01)
[2025-02-10] MEDS ORDERED: FURO20TA2 PO (11:01)
[2025-02-10] MEDS ORDERED: MAGN400T2 PO (11:01)
[2025-02-10] MEDS ORDERED: OXYC10TA12 PO (11:01)
== END 2025-02-09 07:54 | disposition home or self-care (01) ==
LOC: M ED 18:26
DX: Z71.1 Person with feared health complaint in whom no diagnosis is made (principal); G43.909 Migraine, unspecified, not intractable, without status migrainosus; R56.9 Unspecified convulsions; I10 Essential (primary) hypertension; R11.16 Cannabis hyperemesis syndrome; E11.9 Type 2 diabetes mellitus without complications; E03.9 Hypothyroidism, unspecified; F41.9 Anxiety disorder, unspecified; F32.A Depression, unspecified; G47.30 Sleep apnea, unspecified; Z85.6 Personal history of leukemia; Z86.79 Personal history of other diseases of the circulatory system; Z87.19 Personal history of other diseases of the digestive system; Z87.01 Personal history of pneumonia (recurrent); Z86.718 Personal history of other venous thrombosis and embolism; Z87.440 Personal history of urinary (tract) infections; Z87.39 Personal history of other diseases of the musculoskeletal system and connective tissue; Z91.51 Personal history of suicidal behavior; Z79.899 Other long term (current) drug therapy; Z88.0 Allergy status to penicillin; Z88.2 Allergy status to sulfonamides; Z88.6 Allergy status to analgesic agent; Z88.8 Allergy status to other drugs, medicaments and biological substances; Z88.1 Allergy status to other antibiotic agents; Z88.5 Allergy status to narcotic agent; Z91.040 Latex allergy status; Z91.041 Radiographic dye allergy status; Z91.013 Allergy to seafood; Z91.02 Food additives allergy status

== ENCOUNTER 2025-02-09 16:37 | Emergency (ER) | payer OTHER ==
[2025-02-09 16:57] VITALS: TEMP 98
[2025-02-09] MEDS: CHARCOAL ACTIVATED LIQUID 25 GM/120 ML BTL PO ONE (17:28)
[2025-02-09] MEDS: NS (Normal Saline) 0.9% 1,000 ML IV SCH (17:28)
[2025-02-09 17:32] LABS: BASO # 0.0 10^3/uL (0.0-0.2); BASO % 0.2 % (0.0-1.0); EOS # 0.2 10^3/uL (0.0-0.5); EOS % 2.8 % (0.0-3.0); LYMPH # 1.3 10^3/uL (1.5-5.0); LYMPH % 15.9 % (24.0-44.0); MONO # 0.7 10^3/uL (0.0-0.8); MONO % 8.3 % (2.0-8.0); NEUTROPHILS # 6.0 10^3/uL (1.5-8.5); NEUTROPHILS % 72.6 % (36.0-66.0); PLATELET COUNT, AUTOMATED 284 10^3/uL (150-450)
[2025-02-09 18:02] LABS: ETHYL ALCOHOL (ETHANOL) < 0.003 % (0.000-0.010)
[2025-02-09 18:03] LABS: SALICYLATE LEVEL < 3.0 MG/DL (<30)
[2025-02-09 18:04] LABS: ALT/SGPT 34 U/L (7.0-40); AST/SGOT 20 U/L (<34); CALCIUM LEVEL 8.3 MG/DL (8.5-10.1); CARBON DIOXIDE LEVEL 28 MMOL/L (20-31); CHLORIDE LEVEL 106 MMOL/L (98-107); CPK CREATINE PHOSPHOKINASE 77 U/L (34-145); CREATININE FOR GFR 0.72 MG/DL (0.55-1.30); GLOMERULAR FILTRATION RATE > 90.0 (>60); POTASSIUM SERUM 4.1 MMOL/L (3.5-5.1); SODIUM LEVEL 143 MMOL/L (136-145)
[2025-02-09 18:09] LABS: HCG, SERUM QUALITATIVE NEGATIVE (NEGATIVE)
[2025-02-09 19:37] LABS: AMPHETAMINES LEVEL URINE NEGATIVE (NEGATIVE); BARBITURATES URINE NEGATIVE (NEGATIVE)
[2025-02-09 19:38] LABS: CANNABINOIDS URINE NEGATIVE (NEGATIVE); COCAINE METABOLITE URINE NEGATIVE (NEGATIVE); METHADONE URINE NEGATIVE (NEGATIVE); OPIATES URINE NEGATIVE (NEGATIVE); PHENCYCLIDINE URINE NEGATIVE (NEGATIVE)
[2025-02-09 19:46] LABS: BENZODIAZEPINES URINE POSITIVE (NEGATIVE)
[2025-02-10 10:30] VITALS: BP 135/64
[2025-02-10 11:00] VITALS: O2SAT 98
[2025-02-10] MEDS ORDERED: DIAZ10TA2 PO (11:01)
[2025-02-10] MEDS ORDERED: MAGN400T2 PO (11:01)
[2025-02-10] MEDS ORDERED: ROZE8TAB16 PO (11:01)
[2025-02-10] MEDS ORDERED: OXYC10TA12 PO (11:01)
[2025-02-10] MEDS ORDERED: FURO20TA2 PO (11:01)
[2025-02-10] MEDS ORDERED: PREG25CA63 PO (11:01)
[2025-02-10] MEDS ORDERED: HOME MED LIST COMPLETE! XX SCH (11:05)
== END 2025-02-10 11:54 | disposition home or self-care (01) ==
LOC: M ED 16:37
DX: F60.3 Borderline personality disorder (principal); F43.0 Acute stress reaction; G43.909 Migraine, unspecified, not intractable, without status migrainosus; R56.9 Unspecified convulsions; Z86.79 Personal history of other diseases of the circulatory system; I10 Essential (primary) hypertension; Z86.718 Personal history of other venous thrombosis and embolism; Z87.01 Personal history of pneumonia (recurrent); G47.30 Sleep apnea, unspecified; Z87.19 Personal history of other diseases of the digestive system; Z87.440 Personal history of urinary (tract) infections; E11.9 Type 2 diabetes mellitus without complications; E03.9 Hypothyroidism, unspecified; Z85.6 Personal history of leukemia; F41.9 Anxiety disorder, unspecified; F32.A Depression, unspecified; Z91.51 Personal history of suicidal behavior; Z79.899 Other long term (current) drug therapy; Z88.0 Allergy status to penicillin; Z88.1 Allergy status to other antibiotic agents; Z88.6 Allergy status to analgesic agent; Z88.5 Allergy status to narcotic agent; Z88.8 Allergy status to other drugs, medicaments and biological substances; Z91.041 Radiographic dye allergy status; Z91.013 Allergy to seafood; Z91.040 Latex allergy status; Z91.89 Other specified personal risk factors, not elsewhere classified

== ENCOUNTER 2025-02-11 17:22 | Emergency (ER) | payer OTHER ==
[~2025-02-11] VITALS: Ht 175.3 cm; Wt 159.1 kg
[~2025-02-11 17:22] MED LIST changes: +OXYC10TA12 PO; +PREG25CA63 PO; +ROZE8TAB16 PO
[2025-02-12] MEDS: ONDANSETRON 4MG ORAL DISINTEGRATING TAB PO ONE (05:36)
[2025-02-12 05:47] VITALS: TEMP 98
[2025-02-12 07:01] VITALS: BP 115/56; O2SAT 93
== END 2025-02-12 07:20 | disposition home or self-care (01) ==
LOC: M ED 17:22 → EDBD 17:22 → M ED 02-12 07:20
DX: F45.0 Somatization disorder (principal); Z87.19 Personal history of other diseases of the digestive system; Z76.5 Malingerer [conscious simulation]; F60.9 Personality disorder, unspecified; Z79.899 Other long term (current) drug therapy; Z88.0 Allergy status to penicillin; Z88.6 Allergy status to analgesic agent; Z88.1 Allergy status to other antibiotic agents; Z88.5 Allergy status to narcotic agent; Z88.8 Allergy status to other drugs, medicaments and biological substances; Z88.2 Allergy status to sulfonamides; Z91.041 Radiographic dye allergy status; Z91.040 Latex allergy status
CPT/HCPCS: 36415; 71045; 80053; 82607; 82728; 82746; 83550; 83615; 85025; 85379; 87486; 87581; 87633; 87798; 88300; 93971; 99284; G0463

== ENCOUNTER 2025-02-12 12:12 | Outpatient (CLI) | payer OTHER ==
[~2025-02-12] VITALS: Ht 175.3 cm; Wt 181.0 kg
[~2025-02-12 12:12] MED LIST changes: +ALBUTEROL SULFATE 2.5 MG/0.5 ML INH CONCENTRATE NEB SOLN INH PRN; +EPINEPHrine INJ 1 MG/ML 1ML AMP IM PRN; +diphenhydrAMINE 50 MG/ML VIAL IV PRN
[2025-02-12 13:00] VITALS: BP 121/58; O2SAT 100
[2025-02-12] MEDS: FAMOTIDINE 20 MG TAB PO ONE (13:51)
[2025-02-12] MEDS: predniSONE 20 MG TAB PO ONE (13:51)
[2025-02-12] MEDS: IRON SUCROSE 300 MG in NS 250 ML IV ONE (14:04)
[2025-02-12 16:08] VITALS: BP 129/69; O2SAT 97
== END 2025-02-12 16:00 | disposition home or self-care (01) ==
LOC: M INFU 12:12
PROVIDERS: ATTEND Student in an Organized Health Care Education/Training Program
DX: D50.9 Iron deficiency anemia, unspecified (principal); Z88.0 Allergy status to penicillin; Z88.1 Allergy status to other antibiotic agents; Z88.5 Allergy status to narcotic agent; Z88.8 Allergy status to other drugs, medicaments and biological substances; Z88.6 Allergy status to analgesic agent; Z91.041 Radiographic dye allergy status; Z91.040 Latex allergy status; Z91.89 Other specified personal risk factors, not elsewhere classified

== ENCOUNTER 2025-02-12 18:43 | Emergency (ER) | payer OTHER ==
[~2025-02-12] VITALS: Ht 175.3 cm; Wt 150.0 kg
[~2025-02-12 18:43] MED LIST changes: -ALBUTEROL SULFATE 2.5 MG/0.5 ML INH CONCENTRATE NEB SOLN INH PRN; -EPINEPHrine INJ 1 MG/ML 1ML AMP IM PRN; -diphenhydrAMINE 50 MG/ML VIAL IV PRN
[2025-02-13 05:00] VITALS: TEMP 98.1
[2025-02-13 06:00] VITALS: BP 130/70; O2SAT 98
== END 2025-02-13 10:15 | disposition home or self-care (01) ==
LOC: M ED 18:43
DX: F60.9 Personality disorder, unspecified (principal); Z76.5 Malingerer [conscious simulation]; C92.01 Acute myeloblastic leukemia, in remission; E11.9 Type 2 diabetes mellitus without complications; F32.A Depression, unspecified; E03.9 Hypothyroidism, unspecified; E66.09 Other obesity due to excess calories; G47.33 Obstructive sleep apnea (adult) (pediatric); G40.909 Epilepsy, unspecified, not intractable, without status epilepticus; I27.20 Pulmonary hypertension, unspecified; D50.9 Iron deficiency anemia, unspecified; Z86.73 Personal history of transient ischemic attack (TIA), and cerebral infarction without residual deficits; Z86.79 Personal history of other diseases of the circulatory system; Z86.718 Personal history of other venous thrombosis and embolism; Z87.19 Personal history of other diseases of the digestive system; Z88.0 Allergy status to penicillin; Z88.1 Allergy status to other antibiotic agents; Z88.5 Allergy status to narcotic agent; Z88.6 Allergy status to analgesic agent; Z88.8 Allergy status to other drugs, medicaments and biological substances; Z91.041 Radiographic dye allergy status; Z91.040 Latex allergy status; Z91.89 Other specified personal risk factors, not elsewhere classified; Z79.899 Other long term (current) drug therapy
CPT/HCPCS: 94660; 96365; 96366; 99285; J1756; J7512

== ENCOUNTER 2025-02-13 18:07 | Emergency (ER) | payer OTHER ==
[~2025-02-13] VITALS: Ht 175.3 cm; Wt 159.1 kg
[2025-02-13 18:17] VITALS: BP 119/62; TEMP 98; O2SAT 96
== END 2025-02-13 19:26 | disposition home or self-care (01) ==
LOC: M ED 18:07 → EDBD 18:07 → M ED 19:26
DX: T78.40XA Allergy, unspecified, initial encounter (principal); E11.9 Type 2 diabetes mellitus without complications; I10 Essential (primary) hypertension; Z88.0 Allergy status to penicillin; Z88.1 Allergy status to other antibiotic agents; Z88.8 Allergy status to other drugs, medicaments and biological substances; Z88.6 Allergy status to analgesic agent; Z91.041 Radiographic dye allergy status; Z91.018 Allergy to other foods; Z79.899 Other long term (current) drug therapy

== ENCOUNTER 2025-02-14 00:37 | Observation (INO) | payer OTHER ==
[~2025-02-14] VITALS: Ht 175.3 cm; Wt 189.0 kg
[2025-02-14] MEDS: ONDANSETRON 4MG/2ML VIAL IV ONE (08:02)
[2025-02-14 08:06] LABS: BASO # 0.0 10^3/uL (0.0-0.2); BASO % 0.5 % (0.0-1.0); EOS # 0.1 10^3/uL (0.0-0.5); EOS % 1.8 % (0.0-3.0); LYMPH # 1.3 10^3/uL (1.5-5.0); LYMPH % 16.3 % (24.0-44.0); MONO # 0.6 10^3/uL (0.0-0.8); MONO % 8.0 % (2.0-8.0); NEUTROPHILS # 5.7 10^3/uL (1.5-8.5); NEUTROPHILS % 73.0 % (36.0-66.0); PLATELET COUNT, AUTOMATED 347 10^3/uL (150-450)
[2025-02-14] MEDS: diphenhydrAMINE 50 MG/ML VIAL IV STA (08:06)
[2025-02-14] MEDS: NS 500 ML IV ONE (08:06)
[2025-02-14 08:13] LABS: KETONE, URINE AUTO RFX NEGATIVE (NEGATIVE); MUCUS, URINE RFX SMALL (NEGATIVE); NITRITE, URINE AUTO RFX NEGATIVE (NEGATIVE); RBC, URINE AUTO RFX 9 /HPF (0-3); SQUAM EPITHELIAL CELL UR AURFX 3 /HPF (0-6); WBC, URINE AUTO RFX 2 /HPF (0-3)
[2025-02-14] MEDS ORDERED: ISOVUE-370 76% 100 ML VIAL As Ordered ONE (08:17)
[2025-02-14 08:32] LABS: ALT/SGPT 21 U/L (7.0-40); AST/SGOT 11 U/L (<34); CALCIUM LEVEL 8.9 MG/DL (8.5-10.1); CARBON DIOXIDE LEVEL 30 MMOL/L (20-31); CHLORIDE LEVEL 102 MMOL/L (98-107); CREATININE FOR GFR 0.79 MG/DL (0.55-1.30); GLOMERULAR FILTRATION RATE > 90.0 (>60); POTASSIUM SERUM 4.1 MMOL/L (3.5-5.1); SODIUM LEVEL 142 MMOL/L (136-145)
[2025-02-14 08:58] LABS: LEUKOCYTE ESTERASE UR AUTO RFX TRACE (NEGATIVE)
[2025-02-14] MEDS ORDERED: HOME MED LIST COMPLETE! XX SCH (13:00)
[2025-02-14] MEDS ORDERED: ALBUTEROL 90 MCG/ACT 8 GM HFA INHALER INH PRN (13:25)
[2025-02-14 14:20] VITALS: BP 121/67; TEMP 99; O2SAT 95
[2025-02-14] MEDS: NS (Normal Saline) 0.9% 1,000 ML IV SCH (14:37)
[2025-02-14] MEDS: ONDANSETRON 4MG/2ML VIAL IV PRN (14:37)
[2025-02-14] MEDS: NITAZOXANIDE 500 MG TAB PO SCH (15:00)
[2025-02-14 15:47] LABS: INR 0.96
[2025-02-14] MEDS: PREGABALIN 25 MG CAP PO PRN (18:10)
[2025-02-14 20:00] VITALS: BP 120/56; TEMP 97.9; O2SAT 96
[2025-02-14] MEDS: NYSTATIN 100,000 UNITS/GM TOPICAL PWD 15 GM TOP SCH (20:24)
[2025-02-14] MEDS: FAMOTIDINE 20 MG TAB PO SCH (20:24)
[2025-02-15 04:00] VITALS: BP 103/51; TEMP 97.9; O2SAT 96
[2025-02-15] MEDS: LEVOTHYROXINE 125 MCG TABLET (0.125 MG) PO SCH (05:42)
[2025-02-15 06:29] LABS: PLATELET COUNT, AUTOMATED 337 10^3/uL (150-450)
[2025-02-15] MEDS ORDERED: NYST10006 TOP (06:46)
[2025-02-15] MEDS ORDERED: ALIN500T2 PO (06:46)
[2025-02-15] MEDS ORDERED: ONDA-282 PO (06:46)
[2025-02-15 07:06] LABS: ALT/SGPT 18 U/L (7.0-40); AST/SGOT 10 U/L (<34); CALCIUM LEVEL 8.5 MG/DL (8.5-10.1); CARBON DIOXIDE LEVEL 27 MMOL/L (20-31); CHLORIDE LEVEL 107 MMOL/L (98-107); CREATININE FOR GFR 0.58 MG/DL (0.55-1.30); GLOMERULAR FILTRATION RATE > 90.0 (>60); POTASSIUM SERUM 4.5 MMOL/L (3.5-5.1); SODIUM LEVEL 143 MMOL/L (136-145)
[2025-02-15] MEDS ORDERED: ENOXAPARIN 40 MG/0.4 ML SYRINGE (J1650 PER 10MG) SC SCH (09:00)
[2025-02-15] MEDS ORDERED: METR-265 PO (09:08)
[2025-02-15] MEDS ORDERED: ALBE200T13 PO (10:03)
== END 2025-02-15 10:30 | disposition home or self-care (01) ==
LOC: M ED 00:37 → M ED INP 13:24 → M MS4PR 14:17
PROVIDERS: ADMIT Internal Medicine; ATTEND Internal Medicine
DX: A07.1 Giardiasis [lambliasis] (principal); K52.9 Noninfective gastroenteritis and colitis, unspecified; D50.9 Iron deficiency anemia, unspecified; Z86.718 Personal history of other venous thrombosis and embolism; E03.9 Hypothyroidism, unspecified; E66.01 Morbid (severe) obesity due to excess calories; G40.909 Epilepsy, unspecified, not intractable, without status epilepticus; I27.0 Primary pulmonary hypertension; I10 Essential (primary) hypertension; F32.A Depression, unspecified; G47.33 Obstructive sleep apnea (adult) (pediatric); E83.42 Hypomagnesemia; Z76.5 Malingerer [conscious simulation]; Z79.899 Other long term (current) drug therapy
CPT/HCPCS: 36415; 71045; 74177; 80047; 80048; 80053; 80076; 81001; 83690; 85025; 85027; 85610; 85730; 87086; 87486; 87507; 87581; 87633; 87798; 93005; 93041; 94660; 96361; 96374; 96375; 96376; 99285; J1200; J2405; J2550; J2919; J3010; Q9967

== ENCOUNTER 2025-02-19 19:16 | Emergency (ER) | payer OTHER ==
[~2025-02-19] VITALS: Ht 167.6 cm; Wt 159.1 kg
[~2025-02-19 19:16] MED LIST changes: +ALBE200T13 PO; +ALIN500T2 PO; +NYST10006 TOP
[2025-02-20 06:01] VITALS: BP 139/93; O2SAT 100
[2025-02-20] MEDS: ONDANSETRON 4MG ORAL DISINTEGRATING TAB PO ONE (07:10)
[2025-02-20 07:18] LABS: HCG, SERUM QUALITATIVE NEGATIVE (NEGATIVE)
[2025-02-20 07:52] VITALS: TEMP 97.3
== END 2025-02-20 08:01 | disposition home or self-care (01) ==
LOC: M ED 19:16
DX: S86.912A Strain of unspecified muscle(s) and tendon(s) at lower leg level, left leg, initial encounter (principal); W00.0XXA Fall on same level due to ice and snow, initial encounter; Y92.9 Unspecified place or not applicable; Y93.9 Activity, unspecified; Y99.9 Unspecified external cause status; G43.909 Migraine, unspecified, not intractable, without status migrainosus; Z86.79 Personal history of other diseases of the circulatory system; I10 Essential (primary) hypertension; Z86.718 Personal history of other venous thrombosis and embolism; Z87.01 Personal history of pneumonia (recurrent); G47.30 Sleep apnea, unspecified; R11.16 Cannabis hyperemesis syndrome; Z87.440 Personal history of urinary (tract) infections; E11.9 Type 2 diabetes mellitus without complications; Z85.6 Personal history of leukemia; F41.9 Anxiety disorder, unspecified; F32.A Depression, unspecified; Z91.51 Personal history of suicidal behavior; Z86.14 Personal history of Methicillin resistant Staphylococcus aureus infection

== ENCOUNTER 2025-02-20 18:10 | Emergency (ER) | payer OTHER ==
[~2025-02-20] VITALS: Ht 175.3 cm; Wt 159.1 kg
[2025-02-20] MEDS: ONDANSETRON 4MG ORAL DISINTEGRATING TAB PO ONE (20:33)
[2025-02-20 21:13] VITALS: BP 110/57; TEMP 97.3; O2SAT 98
== END 2025-02-20 21:25 | disposition home or self-care (01) ==
LOC: M ED 18:10
DX: R11.2 Nausea with vomiting, unspecified (principal); Z90.49 Acquired absence of other specified parts of digestive tract; Z88.1 Allergy status to other antibiotic agents; Z88.6 Allergy status to analgesic agent; Z88.8 Allergy status to other drugs, medicaments and biological substances; Z91.041 Radiographic dye allergy status; Z91.040 Latex allergy status; Z88.0 Allergy status to penicillin